=== PATIENT | male | born 1940 | race Caucasian/White ===

== ENCOUNTER 2017-06-07 19:28 | Observation (INO) ==
[2017-06-07] MEDS ORDERED: 0.9 % Sodium Chloride 1,000 ML IVC ONE (20:20)
[2017-06-07] MEDS ORDERED: Aspirin 81 MG TAB.CHEW PO ONE (20:45)
[2017-06-07 20:51] LABS: Basophils % 0.6 %; Eosinophils # 0.1 K/mcL (0.0-0.6); Eosinophils % 1.3 %; Hematocrit 40.4 % (37.5-50.1); Hemoglobin 13.6 g/dL (12.9-16.9); Immature Granulocytes % 0.7 % (0-4); Lymphocytes # 0.5 K/mcL (0.6-4.6); Lymphocytes % 6.7 %; Mean Corpuscular HGB Conc 33.7 g/dL (31.6-35.5); Mean Corpuscular Hemoglobin 31.1 pg (28.0-33.3); Mean Corpuscular Volume 92.2 fL (83.0-100.0); Mean Platelet Volume 10.8 fL (9.4-12.4); Monocytes # 0.4 K/mcL (0.0-1.3); Monocytes % 6.1 %; Neutrophils # 6.1 K/mcL (1.6-8.9); Platelet Count 152 K/mcL (140-400); Red Blood Count 4.38 M/mcL (4.19-5.50); Red Cell Distribution Width 14.5 % (11.5-14.5); Segmented Neutrophils % 84.6 %
[2017-06-07 20:56] LABS: INR 2.6; Prothrombin Time 28.3 Seconds (9.4-12.1)
[2017-06-07 20:59] LABS: Activated Partial Thrombo Time 40.9 Seconds (26.0-36.0); BUN/Creatinine Ratio 14 (6-26); Blood Urea Nitrogen 17 mg/dL (8-26); Calcium 9.6 mg/dL (8.6-10.8); Carbon Dioxide 19 mEq/L (19-29); Chloride 108 mEq/L (98-109); Glucose 151 mg/dL (70-99); Osmolality,Calculated 290 (280-300); Sodium 138 mEq/L (136-145); eGFR For African Americans > 60 (> 60); eGFR For Non-African Americans 57 (> 60)
[2017-06-07 21:11] LABS: Potassium 4.6 mEq/L (3.5-4.5)
[2017-06-07] MEDS ORDERED: Furosemide 20 MG/2 ML VIAL IVP ONE (21:32)
[2017-06-07 21:45] LABS: Bilirubin,Urine Negative (Negative); Blood,Urine Negative (Negative); Clarity,Urine Clear (Clear); Color,Urine Yellow (Yellow); Glucose,Urine (UA) Normal (Normal); Ketones,Urine Negative (Negative); Leukocyte Esterase,Urine Negative (Negative); Nitrite,Urine Negative (Negative); Protein,Urine 100 mg/dL (Neg-Trace); Specific Gravity,Urine 1.018 (1.010-1.025); Urobilinogen,Urine Normal (Normal)
[2017-06-07] MEDS ORDERED: Nitroglycerin 25 MG/250 ML INFUS..BTL IVC SCH ×2 (21:45)
[2017-06-07 21:48] LABS: Bacteria,Urine None Seen per hpf (None-Few); Hyaline Casts,Urine None Seen per lpf (None-Few); RBC,Urine 0-3 per hpf (0-3); Squamous Epithelial Cell,Urine Moderate per lpf (None-Few)
--- NOTE | 2017-06-07 21:49 | Emergency Department Note ---
Disposition Clinical Impression: Congestive heart failure Qualifiers: Congestive heart failure type: unspecified congestive heart failure type Congestive heart failure chronicity: acute on chronic Qualified Code(s): I50.9 - Heart failure, unspecified Disposition: Admitted As Inpatient Condition: Fair Time of Disposition: 22:56 SOB HPI - General Chief Complaint: ED Shortness of Breath/Dyspnea Stated Complaint: JESUS Time Seen by Provider: 06/07/17 19:44 Source: patient, EMS Mode of arrival: EMS Limitations: no limitations Nursing Notes Reviewed: Yes Vital Signs Reviewed: Yes - History of Present Illness Patient presents to the ED with the chief complaint of shortness of breath. Patient has a history of A. fib and COPD. Reports he has felt fine recently except at 4 PM he was sitting in his recliner and had the abrupt onset of dyspnea. He reports that he felt very weak and fatigued all over and his symptoms worsen. Denies any chest discomfort. Does complain of some nausea. No pain or swelling in his legs. States that he is on a anticoagulant for his A. fib. No headache or changes in vision. Also has a history of CHF - Related Data Home Medications Medication Instructions Recorded Confirmed Amlodipine [Norvasc] 10 mg PO DAILY 03/26/15 06/07/17 Aspirin Enteric Coated [Aspirin EC] 81 mg PO DAILY 03/26/15 06/07/17 Cholecalciferol (Vitamin D3) 1,000 unit PO DAILY 03/26/15 06/07/17 [Vitamin D3] Furosemide [Lasix] 40 mg PO DAILY PRN 03/26/15 06/07/17 Gemfibrozil [Lopid] 600 mg PO BIDWM 03/26/15 06/07/17 Glimepiride 1 mg PO DAILY 03/26/15 06/07/17 Isosorbide MONOnitrate [Isosorbide 60 mg PO DAILY 03/26/15 06/07/17 Mononitrate ER] Metoprolol Tartrate [Lopressor] 150 mg PO BID 03/26/15 06/07/17 Potassium Chloride 10 meq PO DAILY 03/26/15 06/07/17 Pravastatin Sodium [Pravachol] 20 mg PO QPM 03/26/15 06/07/17 Warfarin [Coumadin] 3 mg PO SUTUTHSA 03/26/15 06/07/17 Albuterol Sulfate [Proair 2 puff IH Q4HR PRN 12/24/16 06/07/17 Respiclick] Budesonide/Formoterol 160/4.5 2 puff IH BIDR PRN 12/24/16 06/07/17 [Symbicort 160/4.5] Lisinopril [Zestril] 10 mg PO QPM 12/24/16 06/07/17 Montelukast Sodium [Singulair] 10 mg PO DAILY 12/24/16 06/07/17 Spironolactone [Aldactone] 25 mg PO DAILY 12/24/16 06/07/17 DiphenhydraMINE [Benadryl] 25 mg PO Q8HR PRN 06/07/17 06/07/17 Lisinopril [Zestril] 20 mg PO QAM 06/07/17 06/07/17 Warfarin [Coumadin] 2.5 mg PO WEFR 06/07/17 06/07/17 Warfarin [Coumadin] 5 mg PO MO 06/07/17 06/07/17 Previous Rx's Medication Instructions Recorded Pantoprazole Sodium 40 mg PO DAILY #30 03/18/17 LORazepam [Ativan] 0.5 mg PO ONCE #4 tablet 04/22/17 Allergies Allergy/AdvReac Type Severity Reaction Status Date / Time clonidine AdvReac Dry Mucus Verified 01/07/17 18:29 Membranes Iodinated Contrast- Oral and AdvReac Flushing Verified 01/07/17 18:29 IV Dye All systems ED: reviewed and negative except as stated. Constitutional: Denies: fever Cardiovascular: Reports: dyspnea on exertion. Denies: chest pain Respiratory: Reports: dyspnea. Denies: cough Gastrointestinal: Reports: nausea Past Medical History - Past Medical History Attestation: Yes The following information was validated with the patient. Source: patient Medical history: Reports: atrial fibrillation, CHF, COPD, diabetes, hyperlipidemia, hypertension, renal disease Psychiatric history: Reports: no psych history - Social History Smoking Status: Former smoker Smokeless Tobacco Status: No Alcohol use: Reports: rarely Drug use: Reports: none Physical Exam - General Limitations: no limitations General appearance: alert, in no apparent distress - Head Head exam: atraumatic, normocephalic, normal inspection - Neck Neck exam: Present: normal inspection, full ROM, trachea midline - Chest Chest inspection: Present: normal inspection, symmetric chest wall rise - Respiratory Respiratory exam: Present: respiratory distress (mild tachypnea, trace rales bilateral bases ). Absent: normal lung sounds bilaterally - Cardiovascular Cardiovascular exam: Present: tachycardia, irregular rhythm, normal heart sounds. Absent: regular rate, normal rhythm - Abdominal Exam Abdominal exam: Present: soft, Non-Tender. Absent: tenderness, distention, guarding, rebound, rigidity - Extremities Exam Extremities exam: Present: full ROM, pedal edema. Absent: normal inspection, tenderness - Neurological Exam Neurological exam: Present: alert, oriented X3 - Psychiatric Psychiatric exam: Present: normal affect, normal mood - Skin Skin exam: Present: warm, dry, intact, normal color Course Course Narrative: Patient presenting with likely CHF exacerbation. We will workup and admit. Vital Signs Temperature 98.9 F 06/07/17 19:30 Pulse Rate 108 06/07/17 19:30 Respiratory Rate 20 06/07/17 19:30 Blood Pressure 214/106 06/07/17 19:30 O2 Sat by Pulse Oximetry 99 06/07/17 19:30 Temperature 98.5 F 06/07/17 23:35 Pulse Rate 104 06/07/17 23:35 Respiratory Rate 19 06/07/17 23:35 Blood Pressure 164/81 06/07/17 23:35 O2 Sat by Pulse Oximetry 94 06/07/17 23:35 Oxygen Delivery Oxygen Delivery Bipap Shortness of Breath/Dyspnea - Medical Records Medical records reviewed: Yes I reviewed the patient's medical records. - Lab Data Lab results reviewed: Yes I reviewed the patient's lab results. Result diagrams: 06/07/17 20:05 06/07/17 20:05 Lab Results 06/07/17 06/07/17 06/07/17 Range/Units 20:05 20:05 20:05 WBC 7.2 (4.3-11.1) K/mcL RBC 4.38 (4.19-5.50) M/mcL Hgb 13.6 (12.9-16.9) g/dL Hct 40.4 (37.5-50.1) % MCV 92.2 (83.0-100.0) fL MCH 31.1 (28.0-33.3) pg MCHC 33.7 (31.6-35.5) g/dL RDW 14.5 (11.5-14.5) % Plt Count 152 (140-400) K/mcL MPV 10.8 (9.4-12.4) fL Immature Gran % 0.7 (0-4) % Seg Neutrophils % 84.6 % Lymphocytes % 6.7 % Monocytes % 6.1 % Eosinophils % 1.3 % Basophils % 0.6 % Neutrophils # 6.1 (1.6-8.9) K/mcL Lymphocytes # 0.5 L (0.6-4.6) K/mcL Monocytes # 0.4 (0.0-1.3) K/mcL Eosinophils # 0.1 (0.0-0.6) K/mcL Basophils # 0.0 (0.0-0.2) K/mcL PT 28.3 H (9.4-12.1) Seconds INR 2.6 APTT 40.9 H (26.0-36.0) Seconds Sodium 138 (136-145) mEq/L Potassium 4.6 H (3.5-4.5) mEq/L Chloride 108 (98-109) mEq/L Carbon Dioxide 19 (19-29) mEq/L BUN 17 (8-26) mg/dL Creatinine 1.23 (0.72-1.25) mg/dL Est GFR ( Amer) > 60 (> 60) Est GFR (Non-Af Amer) 57 L (> 60) BUN/Creatinine Ratio 14 (6-26) Glucose 151 H (70-99) mg/dL Calculated Osmolality 290 (280-300) Calcium 9.6 (8.6-10.8) mg/dL Troponin I (0-0.03) ng/mL B-Natriuretic Peptide (0-100) pg/mL Urine Color (Yellow) Urine Clarity (Clear) Urine pH (5.0-8.0) pH Units Ur Specific [place] (1.010-1.025) Urine Protein (Neg-Trace) mg/dL Urine Glucose (UA) (Normal) mg/dL Urine Ketones (Negative) mg/dL Urine Blood (Negative) Urine Nitrite (Negative) Urine Bilirubin (Negative) Urine Urobilinogen (Normal) mg/dL Ur Leukocyte Esterase (Negative) Urine Microscopic RBC (0-3) per hpf Urine Microscopic WBC (0-3) per hpf Ur Squamous Epith Cells (None-Few) per lpf Urine Bacteria (None-Few) per hpf Hyaline Casts (None-Few) per lpf Ur Culture Indicated? (NO) Specimen Rejected 06/07/17 06/07/17 06/07/17 Range/Units 20:05 20:05 21:35 WBC (4.3-11.1) K/mcL RBC (4.19-5.50) M/mcL Hgb (12.9-16.9) g/dL Hct (37.5-50.1) % MCV (83.0-100.0) fL MCH (28.0-33.3) pg MCHC (31.6-35.5) g/dL RDW (11.5-14.5) % Plt Count (140-400) K/mcL MPV (9.4-12.4) fL Immature Gran % (0-4) % Seg Neutrophils % % Lymphocytes % % Monocytes % % Eosinophils % % Basophils % % Neutrophils # (1.6-8.9) K/mcL Lymphocytes # (0.6-4.6) K/mcL Monocytes # (0.0-1.3) K/mcL Eosinophils # (0.0-0.6) K/mcL Basophils # (0.0-0.2) K/mcL PT (9.4-12.1) Seconds INR APTT (26.0-36.0) Seconds Sodium (136-145) mEq/L Potassium (3.5-4.5) mEq/L Chloride (98-109) mEq/L Carbon Dioxide (19-29) mEq/L BUN (8-26) mg/dL Creatinine (0.72-1.25) mg/dL Est GFR ( Amer) (> 60) Est GFR (Non-Af Amer) (> 60) BUN/Creatinine Ratio (6-26) Glucose (70-99) mg/dL Calculated Osmolality (280-300) Calcium (8.6-10.8) mg/dL Troponin I 0.01 (0-0.03) ng/mL B-Natriuretic Peptide 487 H (0-100) pg/mL Urine Color Yellow (Yellow) Urine Clarity Clear (Clear) Urine pH 6.0 (5.0-8.0) pH Units Ur Specific [place] 1.018 (1.010-1.025) Urine Protein 100 H (Neg-Trace) mg/dL Urine Glucose (UA) Normal (Normal) mg/dL Urine Ketones Negative (Negative) mg/dL Urine Blood Negative (Negative) Urine Nitrite Negative (Negative) Urine Bilirubin Negative (Negative) Urine Urobilinogen Normal (Normal) mg/dL Ur Leukocyte Esterase Negative (Negative) Urine Microscopic RBC 0-3 (0-3) per hpf Urine Microscopic WBC 3-5 H (0-3) per hpf Ur Squamous Epith Cells Moderate H (None-Few) per lpf Urine Bacteria None Seen (None-Few) per hpf Hyaline Casts None Seen (None-Few) per lpf Ur Culture Indicated? NO (NO) Specimen Rejected 06/07/17 Range/Units 22:13 WBC (4.3-11.1) K/mcL RBC (4.19-5.50) M/mcL Hgb (12.9-16.9) g/dL Hct (37.5-50.1) % MCV (83.0-100.0) fL MCH (28.0-33.3) pg MCHC (31.6-35.5) g/dL RDW (11.5-14.5) % Plt Count (140-400) K/mcL MPV (9.4-12.4) fL Immature Gran % (0-4) % Seg Neutrophils % % Lymphocytes % % Monocytes % % Eosinophils % % Basophils % % Neutrophils # (1.6-8.9) K/mcL Lymphocytes # (0.6-4.6) K/mcL Monocytes # (0.0-1.3) K/mcL Eosinophils # (0.0-0.6) K/mcL Basophils # (0.0-0.2) K/mcL PT (9.4-12.1) Seconds INR APTT (26.0-36.0) Seconds Sodium (136-145) mEq/L Potassium (3.5-4.5) mEq/L Chloride (98-109) mEq/L Carbon Dioxide (19-29) mEq/L BUN (8-26) mg/dL Creatinine (0.72-1.25) mg/dL Est GFR ( Amer) (> 60) Est GFR (Non-Af Amer) (> 60) BUN/Creatinine Ratio (6-26) Glucose (70-99) mg/dL Calculated Osmolality (280-300) Calcium (8.6-10.8) mg/dL Troponin I (0-0.03) ng/mL B-Natriuretic Peptide (0-100) pg/mL Urine Color (Yellow) Urine Clarity (Clear) Urine pH (5.0-8.0) pH Units Ur Specific [place] (1.010-1.025) Urine Protein (Neg-Trace) mg/dL Urine Glucose (UA) (Normal) mg/dL Urine Ketones (Negative) mg/dL Urine Blood (Negative) Urine Nitrite (Negative) Urine Bilirubin (Negative) Urine Urobilinogen (Normal) mg/dL Ur Leukocyte Esterase (Negative) Urine Microscopic RBC (0-3) per hpf Urine Microscopic WBC (0-3) per hpf Ur Squamous Epith Cells (None-Few) per lpf Urine Bacteria (None-Few) per hpf Hyaline Casts (None-Few) per lpf Ur Culture Indicated? (NO) Specimen Rejected Hemolyzed - Radiology Data Radiology results reviewed: Yes I reviewed the patient's radiology results. Chest X-Ray 06/07/17 20:20 IMPRESSION: Cardiomegaly with hydrostatic pulmonary edema and small bilateral pleural effusions in keeping with acute congestive heart failure. D/ / Murtaza Monte MD / Murtaza Monte MD Interpreting Provider: Murtaza Monte MD - EKG Data EKG attestation: Yes I reviewed and interpreted this EKG. EKG results narrative: A. fib with RVR, rate 120, QRS 93, QTc 382, rate dependent ST segment depression , no acute ischemic changes S.B.A.R. - S.B.A.R. Situation: Demographics, MOA Background: Presenting Complaint, Relevant PMH, Meds, & Allergies Assessment: Vital Signs, Course and respsone to treatment, Exam Concerns, Patient/Family Expectation, Pertinant Lab Results, Outstanding Labs Recommendation: Barrier(s) to disposition, Recommendation based on pending studies, treatments, or consults S.B.A.R. Report Given to: Dr. Case Jackson.AMichele Repor Time: 22:56 Attestation Statement - Attestation Attestation: I examined this patient and my medical decision-making was reviewed with the Resident Physician, Dr. Smith. I agree with the documented findings, disposition and treatment plan as described except to the extent set forth below. Patient is a 76-year-old white male with a history of CHF, COPD, and atrial fibrillation who presents to the emergency department with acute onset of shortness of breath that began at approximately 4 PM today. Patient states the shortness of breath has continued to worsen and when his arrived home from work she felt that he was was having increased work of breathing and felt he should be evaluated. Patient denies any chest pain pressure or heaviness with shortness of breath, or diaphoresis, no abdominal pain or back pain, no nausea or vomiting. Patient denies any preceding URI symptoms or cough. No lower extent edema or pain. I agree with the patient's physical exam findings as documented. Patient was tachycardic on arrival. Patient's EKG shows atrial fib with RVR. Patient has a history of chronic A. fib. No acute ischemic findings. We obtained lab evaluation as well as chest x-ray and patient was placed initially on supple L oxygen. Patient's chest x-ray shows acute pulmonary edema with small bilateral pleural effusions. Findings consistent with an exacerbation of CHF so patient was placed on BiPAP and given aspirin, nitroglycerin, and Lasix. Patient does have a mild elevation in his BNP. Remainder of labs are unremarkable. Troponin is negative. We will admit the patient for an acute exacerbation of CHF, results were discussed with patient and who agree with this plan. Patient was accepted by the hospitalist service.
--- NOTE | 2017-06-08 00:58 | Internal Med History&Physical ---
Date of Encounter: 06/08/17 Time of Encounter: 00:56 Assessment and Plan (1) Heart failure, diastolic, with acute decompensation Current visit: Yes Status: Acute As seen on CXR and physical exam, patient is fluid overloaded Was started on Nitro drip in ED and his pressures are stable He only takes Lasix 40 mg PRN as home, so we will diurese with Lasix IV 40 mg BID Echocardiogram done in November of this year showed EF 55% with indeterminant diastolic function Fluid restriction at 1.5 L daily and keeping track of I/O's Holding home Spironolactone in setting of borderline hyperkalemia (2) Afib Current visit: Yes Status: Chronic Currently rate controlled with home Metoprolol, which we will continue He is therapeutic on his INR so will resume home Coumadin dose Qualifiers: Atrial fibrillation type: chronic Qualified Code(s): I48.2 - Chronic atrial fibrillation (3) Non-insulin dependent type 2 diabetes mellitus Current visit: Yes Status: Chronic Holding home anti-diabetics and start on low dose SSI ACHS accuchecks A1c was last checked in December was 6.8%, will recheck in AM (4) CKD (chronic kidney disease) stage 3, GFR 30-59 ml/min Current visit: Yes Status: Chronic Cr is at baseline and he states he is making adequate urine Will monitor Cr daily and keep close eye on electrolytes (5) HCC (hepatocellular carcinoma) Current visit: No Status: Chronic Underwent radioembolization in February and not currently on any chemo/radiation Has follow up appointment with oncologist in July (6) DANNIELLE (obstructive sleep apnea) Current visit: Yes Status: Chronic Patient states he is compliant with home BiPAP machine, will continue (7) DVT prophylaxis Current visit: Yes Status: Acute On home Coumadin Internal Medicine - H&P: HPI Chief complaint: shortness of breath Admitted From: Home Plans for Post Hospital Care: Home History of present illness: Mr. Lora is a 76 year old male who presents with shortness of breath started earlier in the afternoon at 4 PM while he was in the recliner. He states it came on all of a sudden when he tried sitting up from the reclined position. He does have a history of COPD, CHF and DANNIELLE and is on BiPAP at night but does not use oxygen. Also has AFib and is on Coumadin. Normally he can walk a few flight of stairs before feeling short of breath. He does take Lasix as needed but swelling, which averages to about twice a week per . He denies any changes in diet or medications. After being given medications including Lasix, Nitro and breathing treatments in the ED, he states his breathing is much better while at rest. He denies any chest pain, nausea, vomiting, diarrhea, fever, chills, syncope. He does have history of hepatocellular carcinoma and underwent radioembolization in February, but has not been on chemo/radiation otherwise. Past Med Surg Social Fam HX - Past Medical History Medical history: atrial fibrillation, CHF, COPD, diabetes, hyperlipidemia, hypertension, renal disease Psychiatric history: no psych history - Social History Smoking Status: Former smoker Smokeless Tobacco Status: No Alcohol use: rarely Drug use: none Internal Medicine - H&P: Meds Amlodipine [Norvasc] 10 mg PO DAILY 03/26/15 [History] Aspirin Enteric Coated [Aspirin EC] 81 mg PO DAILY 03/26/15 [History] Cholecalciferol (Vitamin D3) [Vitamin D3] 1,000 unit PO DAILY 03/26/15 [History] Furosemide [Lasix] 40 mg PO DAILY PRN 03/26/15 [History] Gemfibrozil [Lopid] 600 mg PO BIDWM 03/26/15 [History] Glimepiride 1 mg PO DAILY 03/26/15 [History] Isosorbide MONOnitrate [Isosorbide Mononitrate ER] 60 mg PO DAILY 03/26/15 [ History] Metoprolol Tartrate [Lopressor] 150 mg PO BID 03/26/15 [History] Potassium Chloride 10 meq PO DAILY 03/26/15 [History] Pravastatin Sodium [Pravachol] 20 mg PO QPM 03/26/15 [History] Warfarin [Coumadin] 3 mg PO SUTUTHSA 03/26/15 [History] Albuterol Sulfate [Proair Respiclick] 2 puff IH Q4HR PRN 12/24/16 [History] Budesonide/Formoterol 160/4.5 [Symbicort 160/4.5] 2 puff IH BIDR PRN 12/24/16 [ History] Lisinopril [Zestril] 10 mg PO QPM 12/24/16 [History] Montelukast Sodium [Singulair] 10 mg PO DAILY 12/24/16 [History] Spironolactone [Aldactone] 25 mg PO DAILY 12/24/16 [History] Pantoprazole Sodium 40 mg PO DAILY #30 03/18/17 [Rx] LORazepam [Ativan] 0.5 mg PO ONCE #4 tablet 04/22/17 [Rx] DiphenhydraMINE [Benadryl] 25 mg PO Q8HR PRN 06/07/17 [History] Lisinopril [Zestril] 20 mg PO QAM 06/07/17 [History] Warfarin [Coumadin] 2.5 mg PO WEFR 06/07/17 [History] Warfarin [Coumadin] 5 mg PO MO 06/07/17 [History] 3 Allergy/AdvReac Type Severity Reaction Status Date / Time clonidine AdvReac Dry Mucus Verified 01/07/17 18:29 Membranes Iodinated Contrast- Oral and AdvReac Flushing Verified 01/07/17 18:29 IV Dye All Systems PM: A 10-system review of systems was performed and is negative for pertinent findings except as documented above in the HPI. - Constitutional Constitutional: no chills, no fever(s), no night sweats - EENT Eyes: no change in vision, no discharge, no pain, no photophobia Ears: no ear discharge, no ear pain, no tinnitus Nose, mouth and throat: no dysphagia, no nasal discharge, no neck pain, no sore throat - Cardiovascular Cardiovascular ROS IM: dyspnea, dyspnea on exertion, edema, irregular heart rhythm, no chest pain, no diaphoresis, no lightheadedness, no orthopnea, no palpitations, no syncope - Respiratory Respiratory: no cough, no dyspnea, no wheezing, no excessive phlegm production - Gastrointestinal Gastrointestinal: no abdominal pain, no diarrhea, no hematemesis, no hematochezia, no melena, no nausea, no vomiting - Genitourinary Genitourinary ROS male: urinary frequency (urinates frequently when taking lasix ) - Musculoskeletal Musculoskeletal ROS IM: no numbness, no tingling - Integumentary Integumentary IM: no rash, no unusual bruising - Neurological Neurological ROS: no confusion, no convulsions, no focal weakness, no numbness, no tingling, no tremor(s) - Hematologic/Lymphatic Hematologic/Lymphatic: no easy bruising - Constitutional Vitals: Temp Pulse Resp BP Pulse Ox 98.5 F 104 19 164/81 94 06/07/17 23:35 06/07/17 23:35 06/07/17 23:35 06/07/17 23:35 06/07/17 23:35 General appearance: Present: cooperative, morbidly obese, pleasant, no acute distress, answers questions appropriately - Head Head exam: Present: atraumatic, normocephalic - Eye Eye exam: Present: PERRL, conjuntiva pink, sclera anicteric - Neck Neck exam general surgery: Present: supple, trachea midline. Absent: lymphadenopathy - Respiratory Respiratory exam: Present: rales. Absent: accessory muscle use, rhonchi, wheezes - Cardiovascular Cardiovascular exam: Present: RRR, +S1, +S2. Absent: diastolic murmur, gallop, rubs, systolic murmur - GI/Abdominal GI/Abdominal exam: Present: normal bowel sounds, soft, no peritoneal signs. Absent: distended, tenderness - Extremities Exam Extremities exam: Present: pedal edema (non-pitting), warm, radial pulses palpable and symmetrical. Absent: calf tenderness, cyanotic - Neurological Exam Neurological exam: Present: alert, no focal deficits. Absent: facial droop, speech deficit - Skin Skin exam: Present: dry, intact Internal Med - H&P Results - Labs CBC & Chem 7: 06/07/17 20:05 06/07/17 20:05
[2017-06-08] MEDS ORDERED: Dextrose Gel 15 GM PO PRN ×2 (01:01)
[2017-06-08] MEDS ORDERED: *HR* Dextrose 50 % in Water (Syg) 50 ML SYRINGE IVP PRN (01:01)
[2017-06-08] MEDS ORDERED: D5% in Water 1,000 ML IVC PRN (01:01)
[2017-06-08] MEDS ORDERED: Acetaminophen 325 MG TABLET PO PRN (01:01)
[2017-06-08] MEDS ORDERED: Naloxone 0.4 MG/ML INJ IVP PRN (01:01)
[2017-06-08] MEDS ORDERED: Ondansetron ODT 4 MG TAB.RAPDIS SL PRN (01:01)
[2017-06-08] MEDS ORDERED: Budesonide/Formoterol 160/4.5 MDI IH PRN (01:04)
--- NOTE | 2017-06-08 03:44 | Event Note ---
Date of Encounter: 06/08/17 Time of Encounter: 03:42 Patient serum examined with medical device sales representative. Agree with assessment and plan. Acute Congestive heart failure exacerbations due to diastolic dysfunction. He takes only PRN Lasix at home. We will start the patient on LASIX 40 IVB IV. Strict intake and output and daily weight. He has no history of coronary artery disease. Mentioned that he had 2 prior angiograms showed no Occlusive disease. Patient is full code
[2017-06-08 03:50] LABS: Basophils % 0.3 %; Eosinophils % 0.6 %; Hematocrit 32.6 % (37.5-50.1); Immature Granulocytes % 0.3 % (0-4); Lymphocytes # 0.5 K/mcL (0.6-4.6); Lymphocytes % 8.5 %; Mean Corpuscular HGB Conc 33.7 g/dL (31.6-35.5); Mean Corpuscular Hemoglobin 31.5 pg (28.0-33.3); Mean Corpuscular Volume 93.4 fL (83.0-100.0); Mean Platelet Volume 10.3 fL (9.4-12.4); Monocytes # 0.5 K/mcL (0.0-1.3); Neutrophils # 5.2 K/mcL (1.6-8.9); Platelet Count 124 K/mcL (140-400); Red Blood Count 3.49 M/mcL (4.19-5.50); Red Cell Distribution Width 14.6 % (11.5-14.5); Segmented Neutrophils % 82.3 %
[2017-06-08 04:03] LABS: BUN/Creatinine Ratio 15 (6-26); Blood Urea Nitrogen 17 mg/dL (8-26); Calcium 8.9 mg/dL (8.6-10.8); Carbon Dioxide 21 mEq/L (19-29); Chloride 109 mEq/L (98-109); Glucose 125 mg/dL (70-99); Osmolality,Calculated 291 (280-300); Sodium 139 mEq/L (136-145); eGFR For African Americans > 60 (> 60); eGFR For Non-African Americans > 60 (> 60)
[2017-06-08 04:16] LABS: Hemoglobin A1C 5.3 %
[2017-06-08] MEDS ORDERED: *HR* Heparin 5,000 UNIT/ML VIAL SQ SCH (06:00)
[2017-06-08] MEDS: Insulin LISPRO 300 UNITS/3 ML VIAL SQ SCH ×4 (08:16→20:30)
[2017-06-08] MEDS: Furosemide 40 MG/4 ML VIAL IVP SCH ×2 (08:17→20:29)
[2017-06-08] MEDS: Aspirin Enteric Coated 81 MG Tablet PO SCH (08:19)
[2017-06-08] MEDS: Metoprolol 100 MG TABLET PO SCH ×2 (08:19→20:29)
[2017-06-08] MEDS: amLODIPine 5 MG TABLET PO SCH (08:19)
[2017-06-08] MEDS ORDERED: Lisinopril 20 MG TABLET PO SCH (09:00)
[2017-06-08] MEDS ORDERED: Spironolactone 25 MG TABLET PO SCH (09:00)
[2017-06-08] MEDS ORDERED: Warfarin perPT PO PRN (18:00)
[2017-06-08] MEDS ORDERED: *HR* Warfarin 2.5 MG TABLET PO SCH (18:00)
--- NOTE | 2017-06-08 19:01 | Event Note ---
Date of Encounter: 06/08/17 Time of Encounter: 15:30 Pt admitted earlier this AM for acute exac of chronic diastolic heart failure. He has been diuresing today. Agree with current plan. Anticipate d/c in next 24 hours or so.
[2017-06-08] MEDS: Budesonide/Formoterol 160/4.5 MDI IH SCH (20:05)
[2017-06-09 04:00] LABS: Basophils % 0.6 %; Eosinophils # 0.1 K/mcL (0.0-0.6); Eosinophils % 1.4 %; Hematocrit 34.5 % (37.5-50.1); Hemoglobin 11.5 g/dL (12.9-16.9); Immature Granulocytes % 0.3 % (0-4); Lymphocytes # 0.6 K/mcL (0.6-4.6); Mean Corpuscular HGB Conc 33.3 g/dL (31.6-35.5); Mean Corpuscular Hemoglobin 30.7 pg (28.0-33.3); Mean Platelet Volume 10.3 fL (9.4-12.4); Monocytes # 0.7 K/mcL (0.0-1.3); Monocytes % 10.4 %; Neutrophils # 5.6 K/mcL (1.6-8.9); Platelet Count 136 K/mcL (140-400); Red Blood Count 3.75 M/mcL (4.19-5.50); Red Cell Distribution Width 14.5 % (11.5-14.5); Segmented Neutrophils % 78.3 %
[2017-06-09 04:05] LABS: INR 2.1; Prothrombin Time 22.9 Seconds (9.4-12.1)
[2017-06-09 04:12] LABS: BUN/Creatinine Ratio 16 (6-26); Blood Urea Nitrogen 21 mg/dL (8-26); Calcium 9.3 mg/dL (8.6-10.8); Carbon Dioxide 25 mEq/L (19-29); Chloride 102 mEq/L (98-109); Glucose 133 mg/dL (70-99); Osmolality,Calculated 289 (280-300); Potassium 3.7 mEq/L (3.5-4.5); Sodium 137 mEq/L (136-145); eGFR For African Americans > 60 (> 60); eGFR For Non-African Americans 53 (> 60)
[2017-06-09] MEDS: amLODIPine 5 MG TABLET PO SCH (08:15)
[2017-06-09] MEDS: Metoprolol 100 MG TABLET PO SCH ×2 (08:16→20:06)
[2017-06-09] MEDS: Furosemide 40 MG/4 ML VIAL IVP SCH ×2 (08:16→16:33)
[2017-06-09] MEDS: Aspirin Enteric Coated 81 MG Tablet PO SCH (08:16)
[2017-06-09] MEDS: Insulin LISPRO 300 UNITS/3 ML VIAL SQ SCH ×4 (08:20→22:08)
[2017-06-09] MEDS: Budesonide/Formoterol 160/4.5 MDI IH SCH ×2 (09:13→19:29)
[2017-06-09] MEDS: Azithromycin 500 MG in D5% in Water 250 ML IVPB SCH (16:50)
[2017-06-09] MEDS ORDERED: *HR* Warfarin 3 MG TABLET PO SCH (18:00)
--- NOTE | 2017-06-09 18:26 | Event Note ---
Date of Encounter: 06/09/17 Time of Encounter: 10:30 I examined this patient and my medical decision-making was reviewed with the Resident Physician on 06/09/17. I agree with the documented findings, disposition and treatment plan as described except to the extent set forth below. Mr Lora is currently admitted for resp failure due to CHF. He remains moderate to high risk due to potential for worsening respiratory status. Mr. Lora is still quite dyspneic. He has diuresed. No CP. Has had low grade fevers as well. No GI issues. Exam Alert. Comfortable Mucus membranes moist Heart irreg Lungs with bilateral rales Abd soft Edema present I/P 1. Hypoxic resp failure - 2. Low grade temp - CXR with pneumonia. Abx added 3. CHF Further diagnoses and plan as per progress note of today.
--- NOTE | 2017-06-09 21:39 | Internal Med Progress Note ---
<Alize Logan - Last Filed: 06/09/17 21:37> Date of Encounter: 06/09/17 Time of Encounter: 08:15 - Assessment and plan (1) Heart failure, diastolic, with acute decompensation Current Visit: Yes Status: Acute Assessment and plan: - SOB improving. - Currently tolerating 4L O2 via NC. No conversational dyspnea. - -5.5 L since admission, continue strict I/Os. - Continue diuresis with lasix 40 IV BID as BP tolerates. - Monitor creatinine and electrolytes. (2) Afib Current Visit: Yes Status: Chronic Assessment and plan: - Rate controlled in 70s. - INR 2.1 - Continue metoprolol and coumadin Qualifiers: Atrial fibrillation type: chronic Qualified Code(s): I48.2 - Chronic atrial fibrillation (3) Pneumonia Current Visit: Yes Status: Acute Assessment and plan: - CXR this afternoon showed possible left basilar consolidation suspicious of PNA - No WBC elevation or fevers today. - Start ceftriaxone and azithromycin, day 1. Qualifiers: Pneumonia type: due to unspecified organism Laterality: left Lung location: lower lobe of lung Qualified Code(s): J18.1 - Lobar pneumonia, unspecified organism (4) Non-insulin dependent type 2 diabetes mellitus Current Visit: Yes Status: Chronic Assessment and plan: - A1c of 5.3% - SSI (5) DANNIELLE (obstructive sleep apnea) Current Visit: Yes Status: Chronic Assessment and plan: - Uses BIPAP at home. Will continue - SW following for home needs. (6) CKD (chronic kidney disease) stage 3, GFR 30-59 ml/min Current Visit: Yes Status: Chronic Assessment and plan: - BUN/CR of 21/1.32 - Appears to be at baseline kidney function however creatinine increasing. - Will continue to monitor for increase in creatinine with lasix use - Avoid nephrotoxic drugs. (7) HCC (hepatocellular carcinoma) Current Visit: No Status: Chronic Assessment and plan: - To follow up with oncology in july. (8) DVT prophylaxis Current Visit: Yes Status: Acute Assessment and plan: Anticoagulated with coumadin. - Subjective Interval history: Patient was seen and examined at bedside this AM. He reports some improvement in his breathing. Denies any chest pain, wheezes, nausea, vomiting. - Constitutional Vitals: Temp Pulse Resp BP Pulse Ox 98.6 F 71 16 113/56 97 06/09/17 20:42 06/09/17 20:42 06/09/17 20:42 06/09/17 20:42 06/09/17 20:42 General appearance: Present: cooperative, morbidly obese, pleasant, no acute distress, answers questions appropriately Exam: Gen: Vitals noted. No acute distress. AAOx3 HEENT: oropharynx clear, normocephalic, atraumatic, dry mucus membranes Neck: Supple. Normal ROM. Cardiac: RRR, no murmur, +S1/S2 Pulmonary: Decreased air movement and rales in LLL, equal chest rise Abdomen: soft, nondistended, BS noted, no guarding Extremities: no LE edema, no cyanosis or clubbing, pedal pulses symmetric Neuro: AAOx3, moves all extremities, no focal deficits, no speech deficits Psych: Appropriately answers questions, cooperative, appropriate behavior Internal Medicine: Result - Labs CBC & Chem 7: 06/09/17 03:37 06/09/17 03:37 Labs: Short CBC 06/09/17 Range/Units 03:37 WBC 7.1 (4.3-11.1) K/mcL Hgb 11.5 L (12.9-16.9) g/dL Hct 34.5 L (37.5-50.1) % Plt Count 136 L (140-400) K/mcL Neutrophils # 5.6 (1.6-8.9) K/mcL BMP 06/09/17 03:37 Sodium 137 Potassium 3.7 Chloride 102 Carbon Dioxide 25 BUN 21 Creatinine 1.32 H Glucose 133 H Calcium 9.3 - ABG Interpretation ABG results: PT/INR, D-dimer PT 22.9 Seconds (9.4-12.1) H 06/09/17 03:37 - Impressions Impressions Chest X-Ray 06/09/17 10:36 IMPRESSION: Findings suspicious for a left basilar pneumonia and reactive pleural effusion. Questionable trace right pleural effusion seen on the lateral view. Atherosclerotic disease. D/ / Juan Daniel Irene MD / Juan Daniel Irene MD Interpreting Provider: Juan Daniel Irene MD Consult Discharge Plan - Plan Referrals: Amauri-Colden,Dulce Maria M, MD [Primary Care Provider] - 06/20/17 10:30 am <Jose Mohan Saw - Last Filed: 06/10/17 07:42> Date of Encounter: 06/09/17 - Constitutional Vitals: Temp Pulse Resp BP Pulse Ox 98.3 F 75 17 158/61 95 06/10/17 06:54 06/10/17 06:54 06/10/17 06:54 06/10/17 06:54 06/10/17 06:54 Internal Medicine: Result - Labs CBC & Chem 7: 06/10/17 04:09 06/10/17 04:09 Labs: Short CBC 06/10/17 Range/Units 04:09 WBC 5.8 (4.3-11.1) K/mcL Hgb 11.4 L (12.9-16.9) g/dL Hct 33.4 L (37.5-50.1) % Plt Count 143 (140-400) K/mcL BMP 06/10/17 04:09 Sodium 138 Potassium 3.5 Chloride 102 Carbon Dioxide 27 BUN 31 H D Creatinine 1.43 H Glucose 111 H Calcium 9.2 - ABG Interpretation ABG results: PT/INR, D-dimer PT 20.1 Seconds (9.4-12.1) H 06/10/17 04:09 - Impressions Impressions Chest X-Ray 06/09/17 10:36 IMPRESSION: Findings suspicious for a left basilar pneumonia and reactive pleural effusion. Questionable trace right pleural effusion seen on the lateral view. Atherosclerotic disease. D/ / Juan Daniel Irene MD / Juan Daniel Irene MD Interpreting Provider: Juan Daniel Irene MD - Attending Attestation Please see event note of this date.
[2017-06-10 04:27] LABS: Hematocrit 33.4 % (37.5-50.1); Hemoglobin 11.4 g/dL (12.9-16.9); INR 1.8; Mean Corpuscular HGB Conc 34.1 g/dL (31.6-35.5); Mean Corpuscular Hemoglobin 31.2 pg (28.0-33.3); Mean Corpuscular Volume 91.5 fL (83.0-100.0); Mean Platelet Volume 10.3 fL (9.4-12.4); Platelet Count 143 K/mcL (140-400); Prothrombin Time 20.1 Seconds (9.4-12.1); Red Blood Count 3.65 M/mcL (4.19-5.50); Red Cell Distribution Width 14.2 % (11.5-14.5)
[2017-06-10 04:34] LABS: Calcium 9.2 mg/dL (8.6-10.8); Potassium 3.5 mEq/L (3.5-4.5)
[2017-06-10 07:53] LABS: Adenovirus Not Detected (Not Detect); Bordetella Pertussis Not Detected (Not Detect); Chlamydophila pneumoniae Not Detected (Not Detect); Coronavirus 229E Not Detected (Not Detect); Coronavirus HKU1 Not Detected (Not Detect); Coronavirus NL63 Not Detected (Not Detect); Coronavirus OC43 Not Detected (Not Detect); Human Metapneumovirus Not Detected (Not Detect); Human Rhinovirus/Enterovirus Not Detected (Not Detect); Influenza A Subtype 2009 H1 Not Detected (Not Detect); Influenza A Untypeable Not Detected (Not Detect); Influenza B Not Detected (Not Detect); Mycoplasma pneumoniae Not Detected (Not Detect); Parainfluenza Virus 1 Not Detected (Not Detect); Parainfluenza Virus 2 Not Detected (Not Detect); Parainfluenza Virus 3 Not Detected (Not Detect); Parainfluenza Virus 4 Not Detected (Not Detect); Respiratory Syncytial Virus Not Detected (Not Detect)
[2017-06-10] MEDS: Budesonide/Formoterol 160/4.5 MDI IH SCH ×2 (08:05→21:18)
[2017-06-10] MEDS: Insulin LISPRO 300 UNITS/3 ML VIAL SQ SCH ×4 (09:32→20:40)
[2017-06-10] MEDS: Aspirin Enteric Coated 81 MG Tablet PO SCH (09:33)
[2017-06-10] MEDS: Metoprolol 100 MG TABLET PO SCH ×2 (09:34→20:38)
[2017-06-10] MEDS: Furosemide 40 MG/4 ML VIAL IVP SCH (09:35)
[2017-06-10] MEDS: amLODIPine 5 MG TABLET PO SCH (09:35)
[2017-06-10] MEDS: Azithromycin 500 MG in D5% in Water 250 ML IVPB SCH (12:40)
[2017-06-10] MEDS ORDERED: *HR* Warfarin 3 MG TABLET PO SCH (18:00)
--- NOTE | 2017-06-10 19:34 | Event Note ---
Date of Encounter: 06/10/17 Time of Encounter: 10:00 I examined this patient and my medical decision-making was reviewed with the Resident Physician on 06/10/17. I agree with the documented findings, disposition and treatment plan as described except to the extent set forth below. Mr. Lora is currently in observation for acute CHF and pneumonia. He remains moderate to high risk. Mr Lora is doing somewhat better with abx. He is moving around more. No fever at this time. No CP. No GI issues. Exam Alert. Comfortable Mucus membranes dry Heart distant Lungs with rales Abd soft Edema present I/P 1. CHF exac 2. PNA - aerobic bacteria 3. Chronic a fib 4. DM 5. CKD 3 6. HCC Further diagnoses and plan per progress note of today.
--- NOTE | 2017-06-10 22:36 | Internal Med Progress Note ---
<Alize Logan - Last Filed: 06/10/17 22:32> Date of Encounter: 06/10/17 Time of Encounter: 10:10 - Assessment and plan (1) Heart failure, diastolic, with acute decompensation Status: Acute Assessment and plan: - SOB improving. - Currently tolerating 2L O2 via NC. No conversational dyspnea. - -6 L since admission, continue strict I/Os. - Continue diuresis, decreased lasix to 40 mg IV Qday due to bump in Cr. - Monitor creatinine and electrolytes. - 6 minute walk test today. Does not qualify for home O2. (2) Pneumonia Status: Acute Assessment and plan: - CXR showed possible left basilar consolidation suspicious of PNA - Clinically improving. Respiratory infection panel negative. - No WBC elevation or fevers today. - Continue ceftriaxone and azithromycin, day 2 for a total of 5 days. Qualifiers: Pneumonia type: due to unspecified organism Laterality: left Lung location: lower lobe of lung Qualified Code(s): J18.1 - Lobar pneumonia, unspecified organism (3) CKD (chronic kidney disease) stage 3, GFR 30-59 ml/min Status: Chronic Assessment and plan: - BUN/CR of /.43 - Appears to be at baseline kidney function however creatinine increasing. - Decreased lasix dose as above. - Will continue to monitor for increase in creatinine with lasix use. - Avoid nephrotoxic drugs. (4) Afib Status: Chronic Assessment and plan: - Rate controlled in 70s. - INR 1.8, pharmacy to dose. - Continue metoprolol and coumadin Qualifiers: Atrial fibrillation type: chronic Qualified Code(s): I48.2 - Chronic atrial fibrillation (5) Non-insulin dependent type 2 diabetes mellitus Status: Chronic Assessment and plan: - A1c of 5.3% - SSI (6) DANNIELLE (obstructive sleep apnea) Status: Chronic Assessment and plan: - Uses BIPAP at home. Will continue - SW following for home needs. (7) HCC (hepatocellular carcinoma) Status: Chronic Assessment and plan: - To follow up with oncology in july. (8) DVT prophylaxis Status: Acute Assessment and plan: Anticoagulated with coumadin. - Subjective Interval history: Patient was seen and examined at bedside this AM. He reports continued improvement in his breathing. who is present at bedside has noticed decreased labored breathing. Able to ambulate to bathroom and chair without SOB. Admits to productive cough. Denies any chest pain, wheezes, nausea, vomiting. - Constitutional Vitals: Temp Pulse Resp BP Pulse Ox 98.3 F 78 14 146/74 93 06/10/17 20:03 06/10/17 20:03 06/10/17 21:19 06/10/17 20:03 06/10/17 21:19 General appearance: Present: cooperative, morbidly obese, pleasant, no acute distress, answers questions appropriately Exam: Gen: Vitals noted. No acute distress. AAOx3 HEENT: EOMI, normocephalic, atraumatic, dry mucus membranes. Neck: Supple. Normal ROM. No adenopathy Cardiac: RRR, no murmur, +S1/S2 Pulmonary: Rales present in LLL > RLL Abdomen: soft, nontender, nondistended, BS noted, no guarding Extremities: LE edema improved from yesterday, no cyanosis or clubbing, pedal pulses symmetric Neuro: AAOx3, moves all extremities, no focal deficits, no speech deficits Psych: Appropriately answers questions, cooperative, appropriate behavior Internal Medicine: Result - Labs CBC & Chem 7: 06/10/17 04:09 06/10/17 04:09 Labs: Short CBC 06/10/17 Range/Units 04:09 WBC 5.8 (4.3-11.1) K/mcL Hgb 11.4 L (12.9-16.9) g/dL Hct 33.4 L (37.5-50.1) % Plt Count 143 (140-400) K/mcL BMP 06/10/17 04:09 Sodium 138 Potassium 3.5 Chloride 102 Carbon Dioxide 27 BUN 31 H D Creatinine 1.43 H Glucose 111 H Calcium 9.2 - ABG Interpretation ABG results: PT/INR, D-dimer PT 20.1 Seconds (9.4-12.1) H 06/10/17 04:09 Consult Discharge Plan - Plan Instructions: Heart Failure (DC), Atrial Fibrillation (DC) Referrals: Dulce Maria Cabral MD [Primary Care Provider] - 06/20/17 10:30 am Prescriptions: Azithromycin [Azithromycin 6-Tab Pack] 250 mg PO PER PKG DI #6 tab Cefpodoxime Proxetil 200 mg PO BID #6 tablet <Jose Mohan - Last Filed: 06/11/17 17:36> Date of Encounter: 06/10/17 - Assessment and plan (1) Congestive heart failure Status: Acute Qualifiers: Congestive heart failure type: diastolic Congestive heart failure chronicity: acute on chronic Qualified Code(s): I50.33 - Acute on chronic diastolic (congestive) heart failure (2) DANNIELLE (obstructive sleep apnea) Status: Chronic (3) Pneumonia Status: Acute Qualifiers: Pneumonia type: due to unspecified organism Laterality: left Lung location: lower lobe of lung Qualified Code(s): J18.1 - Lobar pneumonia, unspecified organism (4) COPD (chronic obstructive pulmonary disease) Status: Chronic Qualifiers: COPD type: emphysema Emphysema type: panlobular Qualified 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 (5) Afib Status: Chronic Qualifiers: Atrial fibrillation type: chronic Qualified Code(s): I48.2 - Chronic atrial fibrillation (6) CKD (chronic kidney disease) stage 3, GFR 30-59 ml/min Status: Chronic - Constitutional Vitals: Temp Pulse Resp BP Pulse Ox 98.1 F 62 20 124/63 93 06/11/17 11:53 06/11/17 11:53 06/11/17 11:53 06/11/17 11:53 06/11/17 11:53 Internal Medicine: Result - Labs CBC & Chem 7: 06/11/17 04:00 06/11/17 04:00 Labs: Short CBC 06/11/17 Range/Units 04:00 WBC 5.8 (4.3-11.1) K/mcL Hgb 11.0 L (12.9-16.9) g/dL Hct 32.5 L (37.5-50.1) % Plt Count 181 (140-400) K/mcL Neutrophils # 4.3 (1.6-8.9) K/mcL BMP 06/11/17 04:00 Sodium 137 Potassium 3.5 Chloride 101 Carbon Dioxide 26 BUN 33 H Creatinine 1.55 H Glucose 138 H Calcium 9.4 - ABG Interpretation ABG results: PT/INR, D-dimer PT 20.5 Seconds (9.4-12.1) H 06/11/17 04:00 - Attending Attestation I examined this patient and my medical decision-making was reviewed with the Resident Physician on 06/10/17. I agree with the documented findings, disposition and treatment plan as described except to the extent set forth below. Please see event note of this date.
[2017-06-11 04:08] LABS: Basophils # 0.1 K/mcL (0.0-0.2); Eosinophils # 0.2 K/mcL (0.0-0.6); Eosinophils % 4.2 %; Hematocrit 32.5 % (37.5-50.1); Immature Granulocytes % 0.3 % (0-4); Immature Platelets 3.8 % (1.1-6.1); Lymphocytes # 0.6 K/mcL (0.6-4.6); Lymphocytes % 10.4 %; Mean Corpuscular HGB Conc 33.8 g/dL (31.6-35.5); Mean Corpuscular Hemoglobin 30.9 pg (28.0-33.3); Mean Corpuscular Volume 91.3 fL (83.0-100.0); Mean Platelet Volume 10.2 fL (9.4-12.4); Monocytes # 0.6 K/mcL (0.0-1.3); Monocytes % 9.5 %; Neutrophils # 4.3 K/mcL (1.6-8.9); Platelet Count 181 K/mcL (140-400); Red Blood Count 3.56 M/mcL (4.19-5.50); Segmented Neutrophils % 74.6 %
[2017-06-11 04:13] LABS: INR 1.9; Prothrombin Time 20.5 Seconds (9.4-12.1)
[2017-06-11 04:19] LABS: Calcium 9.4 mg/dL (8.6-10.8); Potassium 3.5 mEq/L (3.5-4.5)
[2017-06-11] MEDS: Metoprolol 100 MG TABLET PO SCH (08:19)
[2017-06-11] MEDS: Aspirin Enteric Coated 81 MG Tablet PO SCH (08:19)
[2017-06-11] MEDS: amLODIPine 5 MG TABLET PO SCH (08:20)
[2017-06-11] MEDS: Insulin LISPRO 300 UNITS/3 ML VIAL SQ SCH ×2 (08:21→13:35)
[2017-06-11] MEDS: Budesonide/Formoterol 160/4.5 MDI IH SCH (08:54)
[2017-06-11] MEDS ORDERED: Spironolactone 25 MG TABLET PO SCH (09:00)
[2017-06-11] MEDS ORDERED: Furosemide 40 MG/4 ML VIAL IVP SCH (09:00)
[2017-06-11] MEDS ORDERED: Isosorbide MONOnitrate (24 HR) 60 MG TAB.ER.24H PO SCH (09:00)
--- NOTE | 2017-06-11 11:09 | Discharge Summary ---
<Alize Logan - Last Filed: 06/11/17 16:44> Date of Encounter: 06/11/17 Time of Encounter: 09:30 - Discharge Diagnosis (1) Heart failure, diastolic, with acute decompensation Priority: Primary Status: Acute (2) Pneumonia Priority: Secondary Status: Acute Qualifiers: Pneumonia type: due to unspecified organism Laterality: left Lung location: lower lobe of lung Qualified Code(s): J18.1 - Lobar pneumonia, unspecified organism (3) CKD (chronic kidney disease) stage 3, GFR 30-59 ml/min Priority: Secondary Status: Chronic (4) Afib Priority: Secondary Status: Chronic Qualifiers: Atrial fibrillation type: chronic Qualified Code(s): I48.2 - Chronic atrial fibrillation (5) Non-insulin dependent type 2 diabetes mellitus Priority: Secondary Status: Chronic (6) DANNIELLE (obstructive sleep apnea) Priority: Secondary Status: Chronic (7) HCC (hepatocellular carcinoma) Priority: Secondary Status: Chronic (8) DVT prophylaxis Priority: Secondary Status: Acute - Discharge Medications Prescriptions: Azithromycin [Azithromycin 6-Tab Pack] 250 mg PO PER PKG DI #6 tab Cefpodoxime Proxetil 200 mg PO BID #6 tablet Home Medications: Amlodipine [Norvasc] 10 mg PO DAILY 03/26/15 [History] Aspirin Enteric Coated [Aspirin EC] 81 mg PO DAILY 03/26/15 [History] Cholecalciferol (Vitamin D3) [Vitamin D3] 1,000 unit PO DAILY 03/26/15 [History] Furosemide [Lasix] 40 mg PO DAILY PRN 03/26/15 [History] Gemfibrozil [Lopid] 600 mg PO BIDWM 03/26/15 [History] Glimepiride 1 mg PO DAILY 03/26/15 [History] Isosorbide MONOnitrate [Isosorbide Mononitrate ER] 60 mg PO DAILY 03/26/15 [ History] Metoprolol Tartrate [Lopressor] 150 mg PO BID 03/26/15 [History] Potassium Chloride 10 meq PO DAILY 03/26/15 [History] Pravastatin Sodium [Pravachol] 20 mg PO QPM 03/26/15 [History] Warfarin [Coumadin] 3 mg PO SUTUTHSA 03/26/15 [History] Albuterol Sulfate [Proair Respiclick] 2 puff IH Q4HR PRN 12/24/16 [History] Budesonide/Formoterol 160/4.5 [Symbicort 160/4.5] 2 puff IH BIDR PRN 12/24/16 [ History] Lisinopril [Zestril] 10 mg PO QPM 12/24/16 [History] Montelukast Sodium [Singulair] 10 mg PO DAILY 12/24/16 [History] Spironolactone [Aldactone] 25 mg PO DAILY 12/24/16 [History] Pantoprazole Sodium 40 mg PO DAILY #30 03/18/17 [Rx] LORazepam [Ativan] 0.5 mg PO ONCE #4 tablet 04/22/17 [Rx] DiphenhydraMINE [Benadryl] 25 mg PO Q8HR PRN 06/07/17 [History] Lisinopril [Zestril] 20 mg PO QAM 06/07/17 [History] Warfarin [Coumadin] 2.5 mg PO WEFR 06/07/17 [History] Warfarin [Coumadin] 5 mg PO MO 06/07/17 [History] Azithromycin [Azithromycin 6-Tab Pack] 250 mg PO PER PKG DI #6 tab 06/11/17 [Rx] Cefpodoxime Proxetil 200 mg PO BID #6 tablet 06/11/17 [Rx] Allergies/Adverse Reactions: 3 Allergy/AdvReac Type Severity Reaction Status Date / Time clonidine AdvReac Dry Mucus Verified 01/07/17 18:29 Membranes Iodinated Contrast- Oral and AdvReac Flushing Verified 01/07/17 18:29 IV Dye Date of admission: 06/07/17 23:06 Primary care physician: Dulce Maria Baugh-[facility] Consults: 06/07/17 23:50 Consult to Pastoral Services [CONS] Routine Comment: 06/09/17 12:11 Consult to Nurse Navigator [CONS] Routine Comment: 06/10/17 11:06 Consult to Occupational Therapy [CONS] Routine Comment: Evaluate, develop and implement POC Reason for Consult: admitted for CHF, pneumonia Consult to Physical Therapy [CONS] Routine Comment: Evaluate, develop and implement POC Reason for Consult: stability and strength; admitted for CHF, pneumonia Discharging clinician: Alize Logan Anticipated date of discharge: 06/11/17 - Patient Status Disposition: Home, Self-Care Condition: Fair Functional capacity at discharge: independent ambulation Overall status at discharge: patient is progressing back to baseline - Discharge Instructions Instructions: Heart Failure (DC), Atrial Fibrillation (DC) Follow Up With: Dulce Maria Cabral MD [Primary Care Provider] - 06/20/17 10:30 am - Diet and Activity Activity: increase activity as tolerated, resume usual activities as tolerated Diet: diabetic diet, low fat, low cholesterol, low salt diet Interval History: Patient was seen and examined at bedside this morning. Patient is feeling well and is without complaints. He and his are hopeful that they will be discharged this weekend. Patient admits to "hacking" cough without sputum production. Chest pain, SOB, abdominal pain, nausea, vomiting are denied by patient. Hospital course: Mr. Lora is a 76 year old male who presented to the ED with shortness of breath. Work up included elevated BNP, negative troponin. EKG showed afib with RVR and rate 120, it showed no acute ischemic changes,. CXR showed acute pulmonary edema with small bilateral pleural effusions. He was placed on BiPAP and given aspirin, nitro drip, and lasix. He was admitted to hospitalist service for acute exacerbation of CHF. Over the course of his hospital stay, Mr. Lora gradually improved. Nearly 7 liters were diuresed with Lasix over his admission. Repeat CXR was done because the patient's shortness of breath was not improving and he had a Tmax of 101F. Findings on CXR were suspicious for left basilar pneumonia and reactive pleural effusion. It was determined he had pneumonia; IV rocephin and IV zithromax were started and patient clinically improved. Six minute walk test was done on day of discharge and the lowest his oxygen saturation got was 92%, so he did not qualify for home oxygen. - Time Spent with Patient Total time spent providing and/or coordinating discharge services: - Constitutional Vitals: Temp Pulse Resp BP Pulse Ox 98.3 F 63 16 139/76 94 06/11/17 06:38 06/11/17 06:38 06/11/17 08:54 06/11/17 08:54 06/11/17 08:54 General appearance: Present: cooperative, pleasant, no acute distress, answers questions appropriately Exam: Gen: Vitals noted. No acute distress. HEENT: EOMI, normocephalic, atraumatic Neck: Supple. Normal ROM. Cardiac: Regular rate, irregular rhythm, no murmur, +S1/S2 Pulmonary: CTA b/l, no wheezing, no rhonchi, normal respiratory effort Abdomen: soft, nontender, nondistended, no guarding Extremities: no LE edema, pedal pulses symmetric Neuro: AAOx3, moves all extremities, no focal deficits, no speech deficits Psych: Appropriately answers questions, cooperative, appropriate behavior <Jose Mohan - Last Filed: 06/11/17 17:45> Date of Encounter: 06/11/17 - Discharge Diagnosis (1) Acute respiratory failure with hypoxia Priority: Primary Status: Resolved (2) Congestive heart failure Priority: Primary Status: Acute Qualifiers: Congestive heart failure type: diastolic Congestive heart failure chronicity: acute on chronic Qualified Code(s): I50.33 - Acute on chronic diastolic (congestive) heart failure (3) DANNIELLE (obstructive sleep apnea) Status: Chronic (4) Pneumonia Status: Acute Qualifiers: Pneumonia type: due to unspecified organism Laterality: left Lung location: lower lobe of lung Qualified Code(s): J18.1 - Lobar pneumonia, unspecified organism (5) COPD (chronic obstructive pulmonary disease) Priority: Secondary Status: Chronic Qualifiers: COPD type: emphysema Emphysema type: panlobular Qualified 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 (6) Afib Status: Chronic Qualifiers: Atrial fibrillation type: chronic Qualified Code(s): I48.2 - Chronic atrial fibrillation (7) CKD (chronic kidney disease) stage 3, GFR 30-59 ml/min Status: Chronic (8) HCC (hepatocellular carcinoma) Status: Chronic (9) Non-insulin dependent type 2 diabetes mellitus Status: Chronic Date of admission: 06/07/17 23:06 Primary care physician: Dulce Maria Baugh-[facility] Consults: 06/07/17 23:50 Consult to Pastoral Services [CONS] Routine Comment: 06/09/17 12:11 Consult to Nurse Navigator [CONS] Routine Comment: 06/10/17 11:06 Consult to Occupational Therapy [CONS] Routine Comment: Evaluate, develop and implement POC Reason for Consult: admitted for CHF, pneumonia Consult to Physical Therapy [CONS] Routine Comment: Evaluate, develop and implement POC Reason for Consult: stability and strength; admitted for CHF, pneumonia Hospital course: Mr. Lora is a 76 year old male - Time Spent with Patient Total time spent providing and/or coordinating discharge services: 38min - Constitutional Vitals: Temp Pulse Resp BP Pulse Ox 98.1 F 62 20 124/63 93 06/11/17 11:53 06/11/17 11:53 06/11/17 11:53 06/11/17 11:53 06/11/17 11:53 - Attending Attestation I examined this patient and my medical decision-making was reviewed with the Resident Physician on 06/11/17. I agree with the documented findings, disposition and treatment plan as described except to the extent set forth below. Mr Lora has been admitted for acute hypoxic resp failure due to CHF. He was also found to have pneumonia. He is now afebrile with stable vitals. He does not require home oxygen. No CP. Less dyspnea. He feels ready to go home. He is nearly 7 liters negative since admit. Exam Alert. Comfortable Mucus membranes dry Heart irreg Lungs diminished Abd soft Less edema Plan D/C home today Follow up with PCP.
[2017-06-11 11:53] VITALS: BP 124/63
[2017-06-11] MEDS: Azithromycin 500 MG in D5% in Water 250 ML IVPB SCH (13:34)
[2017-06-13] MEDS ORDERED: *HR* Warfarin 5 MG TABLET PO SCH (18:00)
== END 2017-06-11 17:00 | disposition home or self-care (01) ==
LOC: 2NENU 19:28 → EMEROO 19:28 → 2NENU 23:45
PROVIDERS: ADMIT Internal Medicine; ATTEND Internal Medicine

== ENCOUNTER 2018-04-17 23:57 | Observation (INO) ==
[2018-04-18 01:29] LABS: Bilirubin,Urine Negative (Negative); Blood,Urine Negative (Negative); Clarity,Urine Clear (Clear); Color,Urine Yellow (Yellow); Glucose,Urine (UA) >=1000 mg/dL (Normal); Ketones,Urine Negative (Negative); Leukocyte Esterase,Urine Negative (Negative); Nitrite,Urine Negative (Negative); PH,Urine 6.5 pH Units (5.0-8.0); Protein,Urine Trace mg/dL (Neg-Trace); Specific Gravity,Urine 1.017 (1.010-1.025); Urobilinogen,Urine Normal (Normal)
--- NOTE | 2018-04-18 01:31 | Emergency Department Note ---
Disposition Clinical Impression: Hyperglycemia, DONTA (acute kidney injury) Sepsis Qualifiers: Sepsis type: sepsis due to unspecified organism Qualified Code(s): A41.9 - Sepsis, unspecified organism Disposition: Admitted As Inpatient Condition: Fair Referrals: Dulce Maria Cabral MD [Primary Care Provider] - Forms: ED Satisfaction Letter Time of Disposition: 03:53 General Adult HPI - General Chief complaint: ED Shortness of Breath/Dyspnea Stated complaint: Vanita incontinent Time Seen by Provider: 04/18/18 00:52 Source: patient, EMS Limitations: no limitations Nursing Notes Reviewed: Yes Vital Signs Reviewed: Yes - History of Present Illness HPI Narrative: Patient is a 77-year-old male who presents to [facility] ED with a chief complaint of shortness of breath, generalized weakness, urinary incontinence. Patient's is present at the bedside. States patient has had an issue with cancer around his liver that has been treated with interventional radiology. Over the last several months, patient has had a cough that was initially treated as congestive heart failure and then treated as a pneumonia with a Z-Fahad about 3-4 weeks ago. states that the cough did seem to get better but then patient continued to be very weak. States he needed a walker to get up last week and then this week he is unable to get himself up at all. Denies any nausea, vomiting, chest pain, abdominal pain, problems with bowel movements. Patient has had frequent urination and has been incontinent of his urine. Has also been spiking fevers at home. 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 He was recently seen by interventional radiology for biopsy of the lung nodule. However since they noted the nodule to be smaller than previous, the procedure was canceled. Onset (ago): day(s) Pain Scale: 0 Consistency: constant, Worsening Improves with: nothing Worsens with: nothing Associated symptoms: Reports: cough, fever/chills, loss of appetite, shortness of breath, weakness. Denies: chest pain Treatments Prior to Arrival: none - Related Data Home Medications Medication Instructions Recorded Confirmed Amlodipine [Norvasc] 10 mg PO DAILY 03/26/15 03/22/18 Aspirin Enteric Coated [Aspirin EC] 81 mg PO DAILY 03/26/15 03/22/18 Cholecalciferol (Vitamin D3) 1,000 unit PO DAILY 03/26/15 03/22/18 [Vitamin D3] Furosemide [Lasix] 40 mg PO BID PRN 03/26/15 03/22/18 Gemfibrozil [Lopid] 600 mg PO BIDWM 03/26/15 03/22/18 Glimepiride 1 mg PO DAILY 03/26/15 03/22/18 Isosorbide MONOnitrate [Isosorbide 60 mg PO DAILY 03/26/15 03/22/18 Mononitrate ER] Metoprolol Tartrate [Lopressor] 150 mg PO BID 03/26/15 03/22/18 Potassium Chloride 10 meq PO DAILY 03/26/15 03/22/18 Pravastatin Sodium [Pravachol] 20 mg PO QPM 03/26/15 03/22/18 Warfarin [Coumadin] 2.5 mg PO DAILY 03/26/15 03/22/18 Albuterol Sulfate [Proair 2 puff IH Q4HR PRN 12/24/16 03/22/18 Respiclick] Budesonide/Formoterol 160/4.5 2 puff IH BIDR PRN 12/24/16 03/22/18 [Symbicort 160/4.5] Montelukast Sodium [Singulair] 10 mg PO DAILY 12/24/16 03/22/18 Spironolactone [Aldactone] 25 mg PO DAILY 12/24/16 03/22/18 Lisinopril [Zestril] 10 mg PO TID 06/07/17 03/22/18 Fexofenadine/Pseudoephedrine 1 each PO DAILY 08/26/17 03/22/18 [Estelle-D 24 Hour Tablet] Previous Rx's Medication Instructions Recorded Pantoprazole Sodium 40 mg PO DAILY #30 tablet. 08/08/17 LORazepam [Ativan] 1 mg PO ONCE 2 Days #2 tablet 03/14/18 Allergies Allergy/AdvReac Type Severity Reaction Status Date / Time clonidine AdvReac Dry Mucus Verified 03/14/18 11:01 Membranes Iodinated Contrast- Oral and AdvReac Flushing Verified 03/14/18 11:01 IV Dye All systems ED: reviewed and negative except as stated. Past Medical History - Past Medical History Attestation: Yes The following information was validated with the patient. Source: patient Medical history: Reports: atrial fibrillation, cancer, CHF, COPD, diabetes, hyperlipidemia, hypertension, renal disease Psychiatric history: Reports: no psych history - Social History Smoking Status: Former smoker Smokeless Tobacco Status: No Alcohol use: Reports: rarely Drug use: Reports: none Physical Exam - General Limitations: no limitations General appearance: alert, in distress, obese - Head Head exam: atraumatic, normocephalic, normal inspection - Eye Eye exam: Present: EOMI - ENT ENT exam: normal exam, normal oropharynx, mucous membranes moist - Neck Neck exam: Present: normal inspection, full ROM, trachea midline - Chest Chest inspection: Present: normal inspection, symmetric chest wall rise - Respiratory Respiratory exam: Present: normal lung sounds bilaterally - Cardiovascular Cardiovascular exam: Present: tachycardia, irregular rhythm (a fib) - Abdominal Exam Abdominal exam: Present: soft, Non-Tender. Absent: tenderness, distention, guarding, rebound, rigidity - Extremities Exam Extremities exam: Present: normal inspection, full ROM. Absent: tenderness, pedal edema - Neurological Exam Neurological exam: Present: alert, oriented X3 - Psychiatric Psychiatric exam: Present: normal affect, normal mood - Skin Skin exam: Present: warm, dry, intact, normal color Course Course Narrative: Patient seen and examined. Generalized weakness along with shortness of breath over the last several weeks. Lab work, EKG, chest x-ray, urine analysis, and blood cultures ordered. He is febrile here with a temp of 101.5. Tylenol given. No abdominal pain to suggest intra-abdominal pathology. Concern for possible sepsis. We will treat with vancomycin and Zosyn. We will give a dose of 500 mL IV fluid bolus. We will cautiously administer fluid since patient has a history of congestive heart failure and is short of breath. - Reevaluation(s) Reevaluation #1: Patient's lab work shows mild hyperkalemia, hyperglycemia. Patient does not have any signs of peaked T waves on EKG. Patient does not have DKA as he has not acidotic and does not have a gap or serum ketones. However we will give a 6 unit dose of insulin. His white count is 15,000. We will admit for sepsis, hyperglycemia, acute kidney injury. I discussed with the hospitalist Dr. Cardoso who has accepted patient for admission. Time: 03:51 Vital Signs Temperature 101.5 F H 04/18/18 00:03 Pulse Rate 99 04/18/18 00:03 Respiratory Rate 22 04/18/18 00:03 Blood Pressure 166/89 04/18/18 00:03 O2 Sat by Pulse Oximetry 98 04/18/18 00:03 Temperature 98.4 F 04/18/18 03:28 Pulse Rate 97 04/18/18 03:28 Respiratory Rate 25 04/18/18 03:28 Blood Pressure 120/71 04/18/18 03:28 O2 Sat by Pulse Oximetry 96 04/18/18 03:28 Oxygen Delivery Oxygen Delivery Room Air Medical Decision Making - Medical Records Medical records reviewed: Yes I reviewed the patient's medical records. - Lab Data Lab results reviewed: Yes I reviewed the patient's lab results. Result diagrams: 04/18/18 02:00 04/18/18 02:00 Lab Results 04/18/18 04/18/18 04/18/18 Range/Units 01:21 02:00 02:00 WBC 15.6 H (4.3-11.1) K/mcL RBC 4.01 L (4.19-5.50) M/mcL Hgb 12.6 L (12.9-16.9) g/dL Hct 36.6 L (37.5-50.1) % MCV 91.3 (83.0-100.0) fL MCH 31.4 (28.0-33.3) pg MCHC 34.4 (31.6-35.5) g/dL RDW 14.4 (11.5-14.5) % Plt Count 126 L (140-400) K/mcL MPV 11.0 (9.4-12.4) fL Sodium 125 L (136-145) mEq/L Potassium 6.0 H (3.5-5.1) mEq/L Chloride 95 L (98-107) mEq/L Carbon Dioxide 23 (23-29) mEq/L BUN 52 H (8-23) mg/dL Creatinine 1.64 H (0.70-1.30) mg/dL Est GFR ( Amer) 50 L (> 60) Est GFR (Non-Af Amer) 41 L (> 60) BUN/Creatinine Ratio 32 H (6-26) Glucose 560 H* (70-105) mg/dL Calculated Osmolality 300 (280-300) Lactic Acid (0.5-2.2) mmol/L Calcium 9.0 (8.6-10.3) mg/dL Troponin I 0.03 (< 0.04) ng/mL B-Natriuretic Peptide (Less than 100) pg/mL Beta-Hydroxybutyric Acd (0.02-0.27) mmol/L Urine Color Yellow (Yellow) Urine Clarity Clear (Clear) Urine pH 6.5 (5.0-8.0) pH Units Ur Specific [place] 1.017 (1.010-1.025) Urine Protein Trace (Neg-Trace) mg/dL Urine Glucose (UA) >=1000 H (Normal) mg/dL Urine Ketones Negative (Negative) mg/dL Urine Blood Negative (Negative) Urine Nitrite Negative (Negative) Urine Bilirubin Negative (Negative) Urine Urobilinogen Normal (Normal) mg/dL Ur Leukocyte Esterase Negative (Negative) Urine Microscopic RBC 0-3 (0-3) per hpf Urine Microscopic WBC 0-3 (0-3) per hpf Ur Squamous Epith Cells Moderate H (None-Few) per lpf Urine Bacteria None Seen (None-Few) per hpf Hyaline Casts None Seen (None-Few) per lpf Ur Culture Indicated? NO (NO) 04/18/18 04/18/18 04/18/18 Range/Units 02:00 02:00 02:00 WBC (4.3-11.1) K/mcL RBC (4.19-5.50) M/mcL Hgb (12.9-16.9) g/dL Hct (37.5-50.1) % MCV (83.0-100.0) fL MCH (28.0-33.3) pg MCHC (31.6-35.5) g/dL RDW (11.5-14.5) % Plt Count (140-400) K/mcL MPV (9.4-12.4) fL Sodium (136-145) mEq/L Potassium (3.5-5.1) mEq/L Chloride (98-107) mEq/L Carbon Dioxide (23-29) mEq/L BUN (8-23) mg/dL Creatinine (0.70-1.30) mg/dL Est GFR ( Amer) (> 60) Est GFR (Non-Af Amer) (> 60) BUN/Creatinine Ratio (6-26) Glucose (70-105) mg/dL Calculated Osmolality (280-300) Lactic Acid 1.2 (0.5-2.2) mmol/L Calcium (8.6-10.3) mg/dL Troponin I (< 0.04) ng/mL B-Natriuretic Peptide 240 H (Less than 100) pg/mL Beta-Hydroxybutyric Acd 0.18 (0.02-0.27) mmol/L Urine Color (Yellow) Urine Clarity (Clear) Urine pH (5.0-8.0) pH Units Ur Specific [place] (1.010-1.025) Urine Protein (Neg-Trace) mg/dL Urine Glucose (UA) (Normal) mg/dL Urine Ketones (Negative) mg/dL Urine Blood (Negative) Urine Nitrite (Negative) Urine Bilirubin (Negative) Urine Urobilinogen (Normal) mg/dL Ur Leukocyte Esterase (Negative) Urine Microscopic RBC (0-3) per hpf Urine Microscopic WBC (0-3) per hpf Ur Squamous Epith Cells (None-Few) per lpf Urine Bacteria (None-Few) per hpf Hyaline Casts (None-Few) per lpf Ur Culture Indicated? (NO) - Radiology Data Radiology results reviewed: Yes I reviewed the patient's radiology results. Chest X-Ray 04/18/18 00:07 IMPRESSION: Pleural based mass within the right upper lobe. Cardiomegaly. D/ / Johnnie Champion MD / Johnnie Champion MD Interpreting Provider: Johnnie Champion MD - EKG Data EKG #1 EKG attestation: Yes I reviewed and interpreted this EKG. EKG results narrative: EKG done at 0006 shows atrial fibrillation with a rate of [address] elevation. Inverted T waves noted in leads 1, aVL, V4 through V6. This does appear new when compared with prior EKG done 06/07/2017. Attestation Statement - Attestation Attestation: Dr Thomas note: Pt seen in conjunction w/resident Dr Rowan; Please see her charting for complete docuentation; I agree w/ pt's treatment and disposition and spent face to face time w/ the pt; labs reviewed; renal injury is acute on chronic; vitals stable on admission; progressive weakness for 2-3 days; no pain; fever since yesterday has been subjective; lungs/urine clear in ER on testing; known metastatic CA at baseline
[2018-04-18 01:32] LABS: Bacteria,Urine None Seen per hpf (None-Few); Hyaline Casts,Urine None Seen per lpf (None-Few); RBC,Urine 0-3 per hpf (0-3); Squamous Epithelial Cell,Urine Moderate per lpf (None-Few); WBC,Urine 0-3 per hpf (0-3)
[2018-04-18] MEDS ORDERED: Piperacillin/Tazobactam 3.375 GM in 0.9 % Sodium Chloride Mini Bag 100 ML IVPB ONE (02:12)
[2018-04-18 02:22] LABS: Hematocrit 36.6 % (37.5-50.1); Hemoglobin 12.6 g/dL (12.9-16.9); Mean Corpuscular HGB Conc 34.4 g/dL (31.6-35.5); Mean Corpuscular Hemoglobin 31.4 pg (28.0-33.3); Mean Corpuscular Volume 91.3 fL (83.0-100.0); Platelet Count 126 K/mcL (140-400); Red Blood Count 4.01 M/mcL (4.19-5.50); Red Cell Distribution Width 14.4 % (11.5-14.5)
[2018-04-18] MEDS ORDERED: Acetaminophen 325 MG TABLET PO ONE (02:36)
[2018-04-18 02:46] LABS: Troponin I 0.03 ng/mL (< 0.04)
[2018-04-18] MEDS ORDERED: 0.9 % Sodium Chloride 500 ML IVC ONE (02:49)
[2018-04-18] MEDS ORDERED: Insulin Regular, Human 100 UNIT/ML IV ONE (03:04)
[2018-04-18 06:02] LABS: VBG HCO3 20 mEq/L (21-27); VBG PCO2 33 mmHg (41-51); VBG PO2 135 mmHg (25-50)
[2018-04-18] MEDS ORDERED: Dextrose Gel 15 GM/37.5 ML TUBE PO PRN ×2 (08:08)
[2018-04-18] MEDS ORDERED: D5% in Water 1,000 ML IVC PRN (08:08)
[2018-04-18] MEDS ORDERED: *HR* Dextrose 50 % in Water (Syg) 50 ML SYRINGE IVP PRN (08:08)
[2018-04-18] MEDS ORDERED: Insulin Human Regular 6 UNIT in 0.9 % Sodium Chloride 10 ML IV ONE (08:42)
[2018-04-18] MEDS: 0.9 % Sodium Chloride 1,000 ML IVC SCH ×2 (10:13→19:33)
[2018-04-18] MEDS: Insulin DETEMIR 100 UNIT/ML X5UNITS SQ SCH (10:19)
[2018-04-18 11:16] LABS: Basophils % 0.2 %; Eosinophils # 0.1 K/mcL (0.0-0.6); Eosinophils % 0.5 %; Hematocrit 34.6 % (37.5-50.1); Hemoglobin 11.8 g/dL (12.9-16.9); Immature Granulocytes % 0.4 % (0-4); Lymphocytes # 0.8 K/mcL (0.6-4.6); Lymphocytes % 6.4 %; Mean Corpuscular HGB Conc 34.1 g/dL (31.6-35.5); Mean Corpuscular Hemoglobin 31.1 pg (28.0-33.3); Mean Corpuscular Volume 91.1 fL (83.0-100.0); Mean Platelet Volume 10.5 fL (9.4-12.4); Monocytes # 0.9 K/mcL (0.0-1.3); Monocytes % 7.3 %; Platelet Count 104 K/mcL (140-400); Red Cell Distribution Width 14.6 % (11.5-14.5); Segmented Neutrophils % 85.2 %
[2018-04-18 11:36] LABS: Albumin/Globulin Ratio 0.9 (1.1-2.2); Bilirubin,Total 2.1 mg/dL (0.3-1.0); Calcium 8.8 mg/dL (8.6-10.3); Globulin 3.5 g/dL (2.4-3.5); Potassium 4.6 mEq/L (3.5-5.1); Total Protein 6.5 g/dL (6.4-8.9)
[2018-04-18 11:38] LABS: Estimated Average Glucose 200 mg/dl; Hemoglobin A1C 8.6 %
[2018-04-18] MEDS: Insulin LISPRO 300 UNITS/3 ML VIAL SQ SCH ×3 (12:13→20:33)
[2018-04-18 12:30] LABS: Adenovirus Not Detected (Not Detect); Bordetella Pertussis Not Detected (Not Detect); Chlamydophila pneumoniae Not Detected (Not Detect); Coronavirus 229E Not Detected (Not Detect); Coronavirus HKU1 Not Detected (Not Detect); Coronavirus NL63 Not Detected (Not Detect); Coronavirus OC43 Not Detected (Not Detect); Human Metapneumovirus Not Detected (Not Detect); Human Rhinovirus/Enterovirus Not Detected (Not Detect); Influenza A Subtype 2009 H1 Not Detected (Not Detect); Influenza A Untypeable Not Detected (Not Detect); Influenza B Not Detected (Not Detect); Mycoplasma pneumoniae Not Detected (Not Detect); Parainfluenza Virus 1 Not Detected (Not Detect); Parainfluenza Virus 2 Not Detected (Not Detect); Parainfluenza Virus 3 Not Detected (Not Detect); Parainfluenza Virus 4 Not Detected (Not Detect); Respiratory Syncytial Virus Not Detected (Not Detect)
[2018-04-18] MEDS ORDERED: Naloxone 0.4 MG/ML INJ IVP PRN (13:10)
[2018-04-18] MEDS ORDERED: Acetaminophen 325 MG TABLET PO PRN (13:14)
--- NOTE | 2018-04-18 13:22 | Internal Med History&Physical ---
Date of Encounter: 04/18/18 Time of Encounter: 12:00 Internal Medicine - H&P: HPI Chief complaint: weakness, polyuria Admitted From: Home History of present illness: Mr. Lora is a 77 year old male with past medical history of atrial fibrillation , diabetes, HCC with ?pleural mets s/p Y-90, hypertension, CKD, COPD, presented to the ED with generalized weakness and polyuria. He states that he has been feeling week for the last few weeks. He was seen by his doctor last Tuesday and was diagnosed with "bronchitis" for which he had completed a course of Z-fahad. He is still on tapering dose of PO prednisone, takes either 10-20mg once a day right now. Since then, he has been complaining of worsening polyuria, polydipsia , poor oral intake, and has been taking less lasix recently. Denies any chest pain, shortness of breath, cough, sputum production, abdominal pain, change in bowel habits, or dysuria. No palpitation, lightheadedness, orthopnea, PND, or leg swelling. Denies any joint pain or new rash. Other than Z-Fahad which she had completed 2 days ago, there were no new medications. He did not think that he had fever or chills at home but had a recorded temperature in the ER at 101.5. Otherwise, he was hemodynamically stable with 98% saturation on room air. Initial investigation showed leukocytosis of 15.6, platelet of 126, sodium 125, creatinine 1.64 from his baseline 1.2-3, and glucose of 439. Lactic acid normal. He admites to not following up for his diabetic care for the last 6 months or so. Troponin was negative and LFT were minimally deranged. Urinalysis was negative for leukocyte esterase or nitrite and chest x-ray did not show any acute processes other than the known right pleural mass. Given his fever and leukocytosis, he was started on Vanco and Zosyn and admitted for further management. Past Med Surg Social Fam HX - Past Medical History Attestation: Yes The following information was validated with the patient. 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 there, skin CA removed, heart cath x2 - Social History Smoking Status: Former smoker Smokeless Tobacco Status: No Alcohol use: rarely Drug use: none - Family History Father Living Status: Hx Family Endocrine Disorder: Yes (DM2) Internal Medicine - H&P: Meds Aspirin Enteric Coated [Aspirin EC] 81 mg PO DAILY 03/26/15 [History] Furosemide [Lasix] 40 mg PO BID PRN 03/26/15 [History] Pravastatin Sodium [Pravachol] 20 mg PO QPM 03/26/15 [History] Albuterol Sulfate [Proair Respiclick] 2 puff IH Q4HR PRN 12/24/16 [History] Budesonide/Formoterol 160/4.5 [Symbicort 160/4.5] 2 puff IH BIDR PRN 12/24/16 [ History] Spironolactone [Aldactone] 25 mg PO DAILY 12/24/16 [History] Amlodipine Besylate 10 mg PO DAILY 04/18/18 [History] Cholecalciferol (D-3) [Vitamin D] 1,000 unit PO DAILY 04/18/18 [History] Gemfibrozil [Lopid] 600 mg PO BID 04/18/18 [History] Glimepiride [Amaryl] 1 mg PO DAILY 04/18/18 [History] Isosorbide MONOnitrate (24 HR) [Imdur] 60 mg PO DAILY 04/18/18 [History] Lisinopril [Zestril] 10 mg PO HS 04/18/18 [History] Lisinopril [Zestril] 20 mg PO QAM 04/18/18 [History] Losartan Potassium [Cozaar] 100 mg PO DAILY 04/18/18 [History] Metoprolol [Lopressor] 150 mg PO BID 04/18/18 [History] Montelukast [Singulair] 10 mg PO HS 04/18/18 [History] Pantoprazole Sodium 40 mg PO DAILY PRN 04/18/18 [History] Warfarin [Coumadin] 2.5 mg PO AD 04/18/18 [History] Warfarin [Coumadin] 3 mg PO AD 04/18/18 [History] 3 Allergy/AdvReac Type Severity Reaction Status Date / Time clonidine AdvReac Dry Mucus Verified 04/18/18 08:30 Membranes Iodinated Contrast- Oral and AdvReac Flushing Verified 04/18/18 08:30 IV Dye All Systems PM: A 10-system review of systems was performed and is negative for pertinent findings except as documented above in the HPI. - Constitutional Vitals: Temp Pulse Resp BP Pulse Ox 97.6 F 95 19 119/69 97 04/18/18 11:23 04/18/18 11:23 04/18/18 11:23 04/18/18 11:23 04/18/18 11:23 Exam: General: Alert and oriented, not in acute distress. HEENT:EOM, pupils equal, round and reactive. No jaundice Cardiovascular:Normal S1 & S2, irregular rhythm, normal rate Lungs: clear to auscultation, no wheezes/rales Abdomen:Soft, non-tender, no rigidity. Extremities:No deformity or swelling Neurological:Normal cognition and motor skills. Non-focal Skin:Normal color, no rash, no lesions. Pulses:Carotid and radial pulses normal +2. Rest of the physical exam is non contributory Internal Med - H&P Results - Labs CBC & Chem 7: 04/18/18 11:05 04/18/18 11:05 Labs: Short CBC 04/18/18 Range/Units 11:05 WBC 11.8 H (4.3-11.1) K/mcL Hgb 11.8 L (12.9-16.9) g/dL Hct 34.6 L (37.5-50.1) % Plt Count 104 L (140-400) K/mcL Neutrophils # 10.0 H (1.6-8.9) K/mcL BMP 04/18/18 11:05 Sodium 130 L Potassium 4.6 Chloride 103 Carbon Dioxide 21 L BUN 47 H Creatinine 1.50 H Glucose 381 H Calcium 8.8 Liver Function 04/18/18 Range/Units 11:05 Total Bilirubin 2.1 H (0.3-1.0) mg/dL AST 42 H (13-39) Units/L ALT 60 H (7-52) Units/L Alkaline Phosphatase 132 H (34-104) Units/L Albumin 3.0 L (3.5-5.7) g/dL - ABG Interpretation ABG results: 04/18/18 05:53 VBG pH 7.40 VBG pCO2 33 L VBG pO2 135 H VBG HCO3 20 L - Assessment and plan (1) Sepsis Current Visit: Yes Status: Suspected Assessment and plan: Initially concern for sepsis with fever and leukocytosis satisfying 2/4 SIRS criteria However, patient has no identifiable foci of infection. UA unremarkable, CXR without acute processes. Leukocytosis may be due to the high-dose steroids that he has been receiving. Not wheezing currently and had already received 7 day course -> d/c steroid He does not complain of abdominal pain, jaundice, change in stool color. Benign abdo exam. Low suspicion for hepatobiliary/GI source. ?viral, check respiratory viral panel Follow up on blood cultures no more fever since the initial presentation, will monitor off abx Qualifiers: Sepsis type: sepsis due to unspecified organism Qualified Code(s): A41.9 - Sepsis, unspecified organism (2) Hyperglycemia Current Visit: Yes Status: Acute Assessment and plan: Reports poor compliance recently, likely aggravated by recent steroid use not in DKA or HHS Received IV insulin 6U in the ED, on glimiperide only at home will start basal insulin of 18U now, keep on moderate dose sliding scale and transition to basal + prandial tomorrow d/ce steroid as above (3) Acute on chronic renal failure Current Visit: Yes Status: Acute Assessment and plan: Likely due to the above, complicated by ongoing use of Lasix, lisinopril, losartan (unsure why he is on both OTTONIEL-i and ARB) d/c meds Cr improving on IVF, continue Qualifiers: Acute renal failure type: unspecified Chronic kidney disease stage: stage 3 (moderate) Qualified Code(s): N17.9 - Acute kidney failure, unspecified; N18.3 - Chronic kidney disease, stage 3 (moderate) (4) Hypertension Current Visit: Yes Status: Chronic Assessment and plan: On multiple medications at home, currently borderline low. Hold all home meds. Qualifiers: Hypertension type: essential hypertension Qualified Code(s): I10 - Essential (primary) hypertension (5) Afib Current Visit: No Status: Chronic Assessment and plan: On beta rodríguez for rate control and warfarin for anti-coagulation. hold off on bb as above Check PT/INR and defer Coumadin dosing to pharmacy. Qualifiers: Atrial fibrillation type: chronic Qualified Code(s): I48.2 - Chronic atrial fibrillation (6) Hyponatremia Current Visit: Yes Status: Acute Assessment and plan: Likely due to hyperglycemia. Treatment with insulin above IV fluid and monitor (7) Transaminitis Current Visit: Yes Status: Acute Assessment and plan: Known history of HCC/Cirrhosis, patient has been on pravastatin as an outpatient. Continue pravastatin -> hold off if worsens monitor Plt count (8) Thrombocytopenia Current Visit: No Status: Chronic Assessment and plan: No evidence of bleeding, known history of cirrhosis. Monitor (9) COPD (chronic obstructive pulmonary disease) Current Visit: No Status: Chronic Qualifiers: COPD type: emphysema Emphysema type: panlobular Qualified 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 (10) DANNIELLE (obstructive sleep apnea) Current Visit: No Status: Chronic (11) DVT prophylaxis Current Visit: No Status: Acute Assessment and plan: Resume home warfarin once PT/INR is completed - Time Spent With Patient Total time spent is greater than 50% in coordination of care (as documented) at patient's floor/unit and/or counseling patient:
[2018-04-18] MEDS ORDERED: Ondansetron 4 MG/2 ML VIAL IVP PRN (17:04)
[2018-04-18] MEDS ORDERED: Budesonide/Formoterol 160/4.5 1 PUFF INH IH PRN (22:00)
[2018-04-19 06:20] LABS: Basophils % 0.3 %; Eosinophils # 0.1 K/mcL (0.0-0.6); Eosinophils % 0.5 %; Hematocrit 34.4 % (37.5-50.1); Hemoglobin 11.6 g/dL (12.9-16.9); Immature Granulocytes % 0.5 % (0-4); Lymphocytes # 0.8 K/mcL (0.6-4.6); Lymphocytes % 7.1 %; Mean Corpuscular HGB Conc 33.7 g/dL (31.6-35.5); Mean Corpuscular Hemoglobin 30.6 pg (28.0-33.3); Mean Corpuscular Volume 90.8 fL (83.0-100.0); Mean Platelet Volume 10.7 fL (9.4-12.4); Monocytes # 0.8 K/mcL (0.0-1.3); Monocytes % 7.5 %; Neutrophils # 9.3 K/mcL (1.6-8.9); Platelet Count 107 K/mcL (140-400); Red Blood Count 3.79 M/mcL (4.19-5.50); Red Cell Distribution Width 14.7 % (11.5-14.5); Segmented Neutrophils % 84.1 %
[2018-04-19 06:25] LABS: INR 2.1; Prothrombin Time 23.8 Seconds (9.4-12.1)
[2018-04-19 06:44] LABS: Alanine Aminotransferase 71 Units/L (7-52); Albumin 3.1 g/dL (3.5-5.7); Albumin/Globulin Ratio 0.9 (1.1-2.2); Alkaline Phosphatase 159 Units/L (34-104); Aspartate Amino Transferase 61 Units/L (13-39); BUN/Creatinine Ratio 27 (6-26); Bilirubin,Total 2.7 mg/dL (0.3-1.0); Blood Urea Nitrogen 34 mg/dL (8-23); Calcium 8.7 mg/dL (8.6-10.3); Carbon Dioxide 20 mEq/L (23-29); Chloride 104 mEq/L (98-107); Chol/HDL Ratio 2.7 (0-4.9); Cholesterol 86 mg/dL (< 200); Globulin 3.5 g/dL (2.4-3.5); Glucose 217 mg/dL (70-105); HDL Cholesterol 32 mg/dL (40-59); LDL Cholesterol,Calculated 38 mg/dL (0-99); Magnesium 1.9 mg/dL (1.6-2.6); Osmolality,Calculated 288 (280-300); Potassium 4.8 mEq/L (3.5-5.1); Sodium 132 mEq/L (136-145); Total Protein 6.6 g/dL (6.4-8.9); Triglycerides 81 mg/dL (< 150); eGFR For Non-African Americans 56 (> 60)
--- NOTE | 2018-04-19 08:37 | Electrocardiograph Report ---
[address] [address] Test Date: 2018-04-18 Pat Name: Marcos Lora Department: EXAM4 Room: 2A41 Gender: M Fire Manager: : 1940 Requested By: Paul Thomas Order Number: [id number] Reading MD: Dulce Maria Marte Measurements Intervals [place] Rate: 102 P: [place]: QRS: 38 QRSD: 92 T: 176 QT: 319 QTc: 416 Interpretive Statements Atrial fibrillation Abnormal T, consider ischemia, lateral leads Electronically Signed On 04-19-2018 8:35:47 EDT by Dulce Maria Marte
[2018-04-19] MEDS: Insulin LISPRO 300 UNITS/3 ML VIAL SQ SCH ×7 (10:17→21:09)
[2018-04-19] MEDS: Aspirin Enteric Coated 81 MG Tablet PO SCH (10:18)
[2018-04-19] MEDS: Cholecalciferol (D-3) 1,000 UNIT TABLET PO SCH (10:18)
[2018-04-19] MEDS: Metoprolol 100 MG TABLET PO SCH ×2 (10:18→21:08)
[2018-04-19] MEDS: Insulin DETEMIR 100 UNIT/ML X5UNITS SQ SCH (10:44)
--- NOTE | 2018-04-19 14:24 | Internal Med Progress Note ---
Hospitalist Progress Note - Encounter Date of Encounter: 04/19/18 Time of Encounter: 10:10 - Subjective Interval History: Patient feels better and stronger with improving glycemic control. However, patient had low-grade temperature of 100.1 at 8:20 PM yesterday. No focal complaints, denies chest pain, cough, sputum production, abdominal pain, diarrhea, or dysuria. - Exam Vitals: Temp Pulse Resp BP Pulse Ox 97.3 F L 89 18 114/77 97 04/19/18 10:39 04/19/18 10:39 04/19/18 10:39 04/19/18 10:39 04/19/18 10:39 Exam: General: Alert and oriented, not in acute distress. HEENT:EOM, pupils equal, round and reactive. No jaundice Cardiovascular:Normal S1 & S2, irregular rhythm, normal rate Lungs: clear to auscultation, no wheezes/rales Abdomen:Soft, non-tender, no rigidity. Extremities:No deformity or swelling Neurological:Normal cognition and motor skills. Non-focal Skin:Normal color, no rash, no lesions. - Assessment and Plan (1) Sepsis Current Visit: Yes Status: Suspected Assessment and Plan: Initially concern for sepsis with fever and leukocytosis satisfying 2/4 SIRS criteria However, patient has no identifiable foci of infection. UA unremarkable, CXR without acute processes. He does not complain of abdominal pain, jaundice, change in stool color. Benign abdo exam. Low suspicion for hepatobiliary/GI source. Leukocytosis may be due to the high-dose steroids that he has been receiving. Not wheezing currently and had already received 7 day course -> d/c steroid Slightly better WBC count, 11 today respiratory viral panel -ve blood c/s NGTD if he has another episode of fever, will scan chest to see if he has unresolved PNA if afebrile > 24 hours, will discharge tomorrow (2) Hyperglycemia Current Visit: Yes Status: Acute Assessment and Plan: Reports poor compliance recently, likely aggravated by recent steroid use not in DKA or HHS improved on current regime of insulin, basal insulin of 18U and moderate dose sliding scale. Add 4U lispro TIDWM d/ce steroid as above (3) Acute on chronic renal failure Current Visit: Yes Status: Acute Assessment and Plan: Likely due to the above, complicated by ongoing use of Lasix, lisinopril, losartan (unsure why he is on both OTTONIEL-i and ARB) d/c meds resolving (4) Hypertension Current Visit: Yes Status: Chronic Assessment and Plan: On multiple medications at home, currently borderline low. Hold all home meds except bb as he is becoming tachycardic (5) Afib Current Visit: No Status: Chronic Assessment and Plan: On beta rodríguez for rate control and warfarin for anti-coagulation. restart bb Check PT/INR and defer Coumadin dosing to pharmacy. (6) Hyponatremia Current Visit: Yes Status: Acute Assessment and Plan: Likely due to hyperglycemia. Treatment with insulin above improved with IVF encourage oral intake, continue to monitor (7) Transaminitis Current Visit: Yes Status: Acute Assessment and Plan: Known history of HCC/Cirrhosis, patient has been on pravastatin as an outpatient. hold pravastatin monitor Plt count (8) Thrombocytopenia Current Visit: No Status: Chronic Assessment and Plan: No evidence of bleeding, known history of cirrhosis. Monitor (9) COPD (chronic obstructive pulmonary disease) Current Visit: No Status: Chronic Assessment and Plan: Not in exacerbation, resume home inhalers and PRN albuterol (10) DANNIELLE (obstructive sleep apnea) Current Visit: No Status: Chronic Assessment and Plan: CPAP at night (11) DVT prophylaxis Current Visit: No Status: Acute Assessment and Plan: Resume home warfarin - Time Spent with Patient Total time spent is greater than 50% in coordination of care (as documented) at patient's floor/unit and/or counseling patient: Plan of Care Discussed with: patient Internal Medicine: Result - Labs CBC & Chem 7: 04/19/18 05:40 04/19/18 05:40 Labs: Short CBC 04/19/18 Range/Units 05:40 WBC 11.0 (4.3-11.1) K/mcL Hgb 11.6 L (12.9-16.9) g/dL Hct 34.4 L (37.5-50.1) % Plt Count 107 L (140-400) K/mcL Neutrophils # 9.3 H (1.6-8.9) K/mcL BMP 04/19/18 05:40 Sodium 132 L Potassium 4.8 Chloride 104 Carbon Dioxide 20 L BUN 34 H Creatinine 1.26 Glucose 217 H Calcium 8.7 Liver Function 04/19/18 Range/Units 05:40 Total Bilirubin 2.7 H (0.3-1.0) mg/dL AST 61 H (13-39) Units/L ALT 71 H (7-52) Units/L Alkaline Phosphatase 159 H (34-104) Units/L Albumin 3.1 L (3.5-5.7) g/dL - ABG Interpretation ABG results: PT/INR, D-dimer PT 23.8 Seconds (9.4-12.1) H 04/19/18 05:40 - VTE Documentation of Mechanical Device: Intermittent pneumatic compression device Consult Discharge Plan - Plan Referrals: Dulce Maria Cabral MD [Primary Care Provider] - (1) Sepsis Qualifiers: Sepsis type: sepsis due to unspecified organism Qualified Code(s): A41.9 - Sepsis, unspecified organism (3) Acute on chronic renal failure Qualifiers: Acute renal failure type: unspecified Chronic kidney disease stage: stage 3 ( moderate) Qualified Code(s): N17.9 - Acute kidney failure, unspecified; N18.3 - Chronic kidney disease, stage 3 (moderate) (4) Hypertension Qualifiers: Hypertension type: essential hypertension Qualified Code(s): I10 - Essential (primary) hypertension (5) Afib Qualifiers: Atrial fibrillation type: chronic Qualified Code(s): I48.2 - Chronic atrial fibrillation (9) COPD (chronic obstructive pulmonary disease) Qualifiers: COPD type: emphysema Emphysema type: panlobular Qualified 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
[2018-04-19] MEDS ORDERED: *HR* Warfarin 2.5 MG TABLET PO SCH ×2 (14:30→14:45)
[2018-04-19] MEDS ORDERED: *HR* Warfarin 3 MG TABLET PO SCH (14:30)
[2018-04-19] MEDS ORDERED: Warfarin perPT PO PRN (18:00)
[2018-04-19] MEDS ORDERED: *HR* Warfarin 3 MG TABLET PO ONE (18:00)
[2018-04-19] MEDS: Budesonide/Formoterol 160/4.5 1 PUFF INH IH SCH (21:39)
[2018-04-20 06:33] LABS: Basophils % 0.2 %; Eosinophils # 0.1 K/mcL (0.0-0.6); Eosinophils % 0.9 %; Hematocrit 34.4 % (37.5-50.1); Hemoglobin 11.2 g/dL (12.9-16.9); Immature Granulocytes % 0.4 % (0-4); Lymphocytes # 0.5 K/mcL (0.6-4.6); Lymphocytes % 5.4 %; Mean Corpuscular HGB Conc 32.6 g/dL (31.6-35.5); Mean Corpuscular Volume 92.2 fL (83.0-100.0); Mean Platelet Volume 11.3 fL (9.4-12.4); Monocytes # 0.7 K/mcL (0.0-1.3); Monocytes % 7.3 %; Neutrophils # 8.5 K/mcL (1.6-8.9); Platelet Count 109 K/mcL (140-400); Red Blood Count 3.73 M/mcL (4.19-5.50); Red Cell Distribution Width 14.7 % (11.5-14.5); Segmented Neutrophils % 85.8 %
[2018-04-20 06:38] LABS: INR 1.7; Prothrombin Time 19.3 Seconds (9.4-12.1)
[2018-04-20 06:55] LABS: BUN/Creatinine Ratio 31 (6-26); Blood Urea Nitrogen 41 mg/dL (8-23); Calcium 8.4 mg/dL (8.6-10.3); Carbon Dioxide 17 mEq/L (23-29); Chloride 103 mEq/L (98-107); Glucose 173 mg/dL (70-105); Osmolality,Calculated 282 (280-300); Potassium 5.4 mEq/L (3.5-5.1); Sodium 129 mEq/L (136-145); eGFR For Non-African Americans 52 (> 60)
[2018-04-20] MEDS ORDERED: 0.9 % Sodium Chloride 1,000 ML IVC SCH (07:30)
[2018-04-20] MEDS: Cholecalciferol (D-3) 1,000 UNIT TABLET PO SCH (08:08)
[2018-04-20] MEDS: Metoprolol 100 MG TABLET PO SCH (08:08)
[2018-04-20] MEDS: Aspirin Enteric Coated 81 MG Tablet PO SCH (08:08)
[2018-04-20] MEDS: Insulin LISPRO 300 UNITS/3 ML VIAL SQ SCH ×4 (08:15→11:57)
[2018-04-20] MEDS: Insulin DETEMIR 100 UNIT/ML X5UNITS SQ SCH (09:57)
--- NOTE | 2018-04-20 10:33 | Discharge Summary ---
- NOTES TO OUTPATIENT PROVIDER Notes to Outpatient Provider: Patient was initially admitted for the concern of sepsis due to his fever of 101.5 and leukocytosis. No source of bacterial infection was identified but he was severely hyperglycemic with pseudohyponatremia and acute on chronic renal failure in the setting of recent steroid use. Improved IV insulin and IV fluid and did not have fever for > 36 hours before discharge. His norvasc, lisinopril/losartan (?medication list states that he is on both), aldactone, and lasix will be held on discharge and he will need BMP with PCP follow up. He is discharged back on his home DM meds ( since he is off steroid) but also given a script for levemir in case his blood glucose remains poorly controlled. Orders not resulted at time of discharge: Pending orders 04/21/18 04:00 PT/INR [Prothrombin Time INR] [COAG] AM 0400 04/22/18 04:00 PT/INR [Prothrombin Time INR] [COAG] AM 0400 Date of Encounter: 04/20/18 Time of Encounter: 08:45 - Discharge Diagnosis (1) Sepsis Priority: Secondary Status: Suspected Qualifiers: Sepsis type: sepsis due to unspecified organism Qualified Code(s): A41.9 - Sepsis, unspecified organism (2) Hyperglycemia Priority: Primary Status: Acute (3) Acute on chronic renal failure Priority: Secondary Status: Acute Qualifiers: Acute renal failure type: unspecified Chronic kidney disease stage: stage 3 (moderate) Qualified Code(s): N17.9 - Acute kidney failure, unspecified; N18.3 - Chronic kidney disease, stage 3 (moderate) (4) Hypertension Priority: Secondary Status: Chronic Qualifiers: Hypertension type: essential hypertension Qualified Code(s): I10 - Essential (primary) hypertension (5) Afib Priority: Secondary Status: Chronic Qualifiers: Atrial fibrillation type: chronic Qualified Code(s): I48.2 - Chronic atrial fibrillation (6) Hyponatremia Priority: Secondary Status: Acute (7) Transaminitis Priority: Secondary Status: Acute (8) Thrombocytopenia Priority: Secondary Status: Chronic (9) COPD (chronic obstructive pulmonary disease) Priority: Secondary Status: Chronic Qualifiers: COPD type: emphysema Emphysema type: panlobular Qualified 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 (10) DANNIELLE (obstructive sleep apnea) Priority: Secondary Status: Chronic (11) DVT prophylaxis Priority: Secondary Status: Acute Hospital course: Mr. Lora is a 77 year old male with past medical history of atrial fibrillation , diabetes, HCC with ?pleural mets s/p Y-90, hypertension, CKD, COPD was admitted for the concern of sepsis due to his fever of 101.5 and leukocytosis. No source of bacterial infection was identified but he was severely hyperglycemic with pseudohyponatremia and acute on chronic renal failure in the setting of recent steroid use and ongoing lasix usage. Improved IV insulin and IV fluid and did not have fever for > 36 hours before discharge. His norvasc, lisinopril/losartan (?medication list states that he is on both), aldactone, and lasix will be held on discharge and he will need BMP with PCP follow up. He is discharged back on his home DM meds (since he is off steroid) but also given a script for levemir in case his blood glucose remains poorly controlled. Discharge discussed with: patient, other (Pharmacist) - Time Spent with Patient Total time spent providing and/or coordinating discharge services: Greater than 30 minutes - Discharge Medications Prescriptions: Insulin DETEMIR [Levemir Flextouch] 18 unit SQ HS #1 insuln.pen Home Medications: Aspirin Enteric Coated [Aspirin EC] 81 mg PO DAILY 03/26/15 [History] Pravastatin Sodium [Pravachol] 20 mg PO QPM 03/26/15 [History] Albuterol Sulfate [Proair Respiclick] 2 puff IH Q4HR PRN 12/24/16 [History] Budesonide/Formoterol 160/4.5 [Symbicort 160/4.5] 2 puff IH BIDR PRN 12/24/16 [ History] Cholecalciferol (D-3) [Vitamin D] 1,000 unit PO DAILY 04/18/18 [History] Gemfibrozil [Lopid] 600 mg PO BID 04/18/18 [History] Glimepiride [Amaryl] 1 mg PO DAILY 04/18/18 [History] Isosorbide MONOnitrate (24 HR) [Imdur] 60 mg PO DAILY 04/18/18 [History] Metoprolol [Lopressor] 150 mg PO BID 04/18/18 [History] Montelukast [Singulair] 10 mg PO HS 04/18/18 [History] Pantoprazole Sodium 40 mg PO DAILY PRN 04/18/18 [History] Warfarin [Coumadin] 2.5 mg PO AD 04/18/18 [History] Warfarin [Coumadin] 3 mg PO AD 04/18/18 [History] Insulin DETEMIR [Levemir Flextouch] 18 unit SQ HS #1 insuln.pen 04/20/18 [Rx] Allergies/Adverse Reactions: 3 Allergy/AdvReac Type Severity Reaction Status Date / Time clonidine AdvReac Dry Mucus Verified 04/18/18 08:30 Membranes Iodinated Contrast- Oral and AdvReac Flushing Verified 04/18/18 08:30 IV Dye Date of admission: 04/18/18 05:04 Primary care physician: Dulce Maria Cabral MD Consults: 04/18/18 05:57 Consult to Principal Administrative Clerk [CONS] Routine Reason for SW Consult: Patient needs assistance getting a new mask for his CPAP. Currently uses [facility]. 04/18/18 13:11 Consult to Occupational Therapy [CONS] Routine Comment: Evaluate, develop and implement POC Reason for Consult: deconditioning due to acute illness Does patient have active BEDREST order?: No Is patient medically & hemodynamically stable?: Yes Consult to Physical Therapy [CONS] Routine Comment: Evaluate, develop and implement POC Reason for Consult: deconditioning due to acute illness Does patient have active BEDREST order?: No Is patient medically & hemodynamically stable?: Yes - Constitutional Vitals: Temp Pulse Resp BP Pulse Ox 99.5 F 88 17 115/74 97 04/20/18 07:27 04/20/18 07:27 04/20/18 07:27 04/20/18 08:06 04/20/18 08:35 Exam: General: Alert and oriented, not in acute distress. HEENT:EOM, pupils equal, round and reactive. No jaundice Cardiovascular:Normal S1 & S2, irregular rhythm, normal rate Lungs: clear to auscultation, no wheezes/rales Abdomen:Soft, non-tender, no rigidity. Extremities:No deformity or swelling Neurological:Normal cognition and motor skills. Non-focal Skin:Normal color, no rash, no lesions. - Patient Status Disposition: Home, Self-Care Condition: Fair Overall status at discharge: patient is progressing back to baseline - Discharge Instructions Instructions: Chronic Hypertension (DC), Atrial Fibrillation (DC) Follow Up With: Dulce Maria Cabral MD [Primary Care Provider] - - Diet and Activity Activity: resume usual activities as tolerated Diet: diabetic diet - VTE Documentation of Mechanical Device: Intermittent pneumatic compression device
[2018-04-20 11:10] VITALS: BP 98/67
[2018-04-20] MEDS: Budesonide/Formoterol 160/4.5 1 PUFF INH IH SCH (11:19)
[2018-04-20] MEDS ORDERED: *HR* Warfarin 3 MG TABLET PO ONE (18:00)
== END 2018-04-20 16:00 | disposition home or self-care (01) ==
LOC: EMEROOARM 23:57 → 2ANU 23:57 → SUATTDRO 04-18 05:04 → 2ANU 04-18 05:34
PROVIDERS: ADMIT Pediatrics; ATTEND Internal Medicine

== ENCOUNTER 2018-10-03 17:00 | Inpatient (IN) ==
--- NOTE | 2018-10-03 17:55 | Emergency Department Note ---
Disposition Clinical Impression: Elevated troponin, Hypokalemia Hypertension Qualifiers: Hypertension type: unspecified Qualified Code(s): I10 - Essential (primary) hyp ertension Disposition: Admitted As Inpatient Condition: Fair General Adult HPI - General Chief complaint: ED General Medical Stated complaint: Hypertension Time Seen by Provider: 10/03/18 17:22 Source: patient Mode of arrival: ambulatory Limitations: no limitations Nursing Notes Reviewed: Yes Vital Signs Reviewed: Yes - History of Present Illness HPI Narrative: 78-year-old male with significant past medical history of insulin-dependent diabetes and hypertension presenting to the emergency department chief complaint of elevated blood pressure and generalized weakness. Patient states for the past week his blood pressure has continued to remain elevated. Called his primary care physician this evening and they were concerned due to how high the systolic and diastolic members were. They state the blood pressure was 180/100 at home. Primary care physician told him to come in for further evaluation. Patient was recently admitted a few months ago and was taken off 3-4 of his blood pressure medications and his blood pressure has started to become uncontrollable since then. Approximately 1 week ago he was restarted on his lisinopril but has not seemed to affect his blood pressure greatly. Patient denies any chest pain but does disclose shortness of breath. Denies any abdominal pain, headache or dizziness. Pain Scale: 0 - Related Data Home Medications Medication Instructions Recorded Confirmed Aspirin Enteric Coated [Aspirin EC] 81 mg PO DAILY 03/26/15 09/04/18 Pravastatin Sodium [Pravachol] 20 mg PO QPM 03/26/15 09/04/18 Albuterol Sulfate [Proair 2 puff IH Q4HR PRN 12/24/16 09/04/18 Respiclick] Budesonide/Formoterol 160/4.5 2 puff IH BIDR PRN 12/24/16 09/04/18 [Symbicort 160/4.5] Cholecalciferol (D-3) [Vitamin D] 1,000 unit PO DAILY 04/18/18 09/04/18 Gemfibrozil [Lopid] 600 mg PO BID 04/18/18 09/04/18 Glimepiride [Amaryl] 1 mg PO DAILY 04/18/18 09/04/18 Isosorbide MONOnitrate (24 HR) 60 mg PO DAILY 04/18/18 09/04/18 [Imdur] Metoprolol [Lopressor] 150 mg PO BID 04/18/18 09/04/18 Montelukast [Singulair] 10 mg PO HS 04/18/18 09/04/18 Warfarin [Coumadin] 2.5 mg PO AD 04/18/18 09/04/18 Warfarin [Coumadin] 3 mg PO AD 04/18/18 09/04/18 Insulin DETEMIR [Levemir Flextouch] 6 unit SQ HS 09/04/18 09/04/18 Previous Rx's Medication Instructions Recorded Pantoprazole Sodium [Protonix] 40 mg PO DAILY #30 tablet. 09/01/18 Pantoprazole Sodium 40 mg PO DAILY #30 tablet. 10/02/18 Allergies Allergy/AdvReac Type Severity Reaction Status Date / Time clonidine AdvReac Dry Mucus Verified 09/04/18 11:39 Membranes Iodinated Contrast- Oral and AdvReac Flushing Verified 09/04/18 11:39 IV Dye All systems ED: reviewed and negative except as stated. Constitutional: Reports: weakness. Denies: fever Eyes: Reports: as per HPI ENT ED: Reports: as per HPI Cardiovascular: Denies: chest pain Respiratory: Reports: dyspnea Gastrointestinal: Denies: abdominal pain Genitourinary: Reports: as per HPI Musculoskeletal: Reports: as per HPI Integumentary: Reports: as per HPI Neurological: Reports: weakness. Denies: numbness, paresthesias Psychiatric: Reports: as per HPI Endocrine: Reports: as per HPI Hematological/Lymphatic: Reports: as per HPI Allergic/Immunologic: Reports: as per HPI Past Medical History - Past Medical History Attestation: Yes The following information was validated with the patient. Medical history: Reports: atrial fibrillation, cancer, CHF, COPD, diabetes, GERD, hyperlipidemia, hypertension, malignancy, renal disease Psychiatric history: Reports: depression - Social History Smoking Status: Former smoker Smokeless Tobacco Status: No Alcohol use: Reports: rarely Drug use: Reports: none Physical Exam - General Limitations: no limitations General appearance: alert, in no apparent distress - Head Head exam: atraumatic, normocephalic, normal inspection - Eye Eye exam: Absent: scleral icterus - ENT ENT exam: mucous membranes moist - Neck Neck exam: Present: full ROM - Chest Chest inspection: Present: symmetric chest wall rise - Respiratory Respiratory exam: Present: normal lung sounds bilaterally. Absent: respiratory distress, wheezes - Cardiovascular Cardiovascular exam: Present: normal rhythm, irregular rhythm - Abdominal Exam Abdominal exam: Present: soft, Non-Tender. Absent: distention, guarding, rebound - Extremities Exam Extremities exam: Present: full ROM - Neurological Exam Neurological exam: Present: alert, oriented X3 - Psychiatric Psychiatric exam: Present: normal affect, normal mood - Skin Skin exam: Present: warm Course Course Narrative: 78-year-old male presenting to the emergency department chief complaint of weakness and elevated blood pressure. Sent over by nephrology with concerns for his hypertension. Patient states no chest pain, abdominal pain or other systemic symptoms other than weakness. At this time will obtain basic laboratory analysis including H&H, BMP, troponin, EKG. Disposition pending. - Reevaluation(s) Reevaluation #1: Patient's lab shows stable anemia, hypokalemia and elevated troponin at 0.04. We will provide patient with potassium repletion and plan to provide the patient with 5 mg of Lopressor for blood pressure control. Due to elevated troponin and hypertension will plan to admit the patient for further evaluation. Patient remains alert and oriented 3 and hemodynamically stable. Patient agrees with this plan. I spoke with the hospitalist [employer] laborer Dr. Ashby who agrees to accept the patient. Goal systolic blood pressure 190 or less before going to the floor. Vital Signs Temperature 98.0 F 10/03/18 17:11 Pulse Rate 66 10/03/18 17:11 Respiratory Rate 17 10/03/18 17:11 Blood Pressure 195/100 10/03/18 17:11 O2 Sat by Pulse Oximetry 97 10/03/18 17:11 Temperature 98.0 F 10/03/18 17:31 Pulse Rate 74 10/03/18 19:48 Respiratory Rate 14 10/03/18 19:48 Blood Pressure 211/98 10/03/18 19:48 O2 Sat by Pulse Oximetry 94 10/03/18 19:48 Oxygen Delivery Oxygen Delivery Room Air Medical Decision Making - Lab Data Result diagrams: 10/03/18 17:44 10/03/18 17:44 Lab Results 10/03/18 10/03/18 10/03/18 Range/Units 17:44 17:44 18:23 Hgb 12.0 L (12.9-16.9) g/dL Hct 36.2 L (37.5-50.1) % Sodium 145 (136-145) mEq/L Potassium 3.0 L (3.5-5.1) mEq/L Chloride 107 (98-107) mEq/L Carbon Dioxide 29 (23-29) mEq/L BUN 24 H (8-23) mg/dL Creatinine 1.04 (0.70-1.30) mg/dL Est GFR ( Amer) > 60 (> 60) Est GFR (Non-Af Amer) > 60 (> 60) BUN/Creatinine Ratio 23 (6-26) Glucose 96 (70-105) mg/dL Calculated Osmolality 304 H (280-300) Calcium 9.4 (8.6-10.3) mg/dL Troponin I 0.04 H* (< 0.04) ng/mL Urine Color Yellow (Yellow) Urine Clarity Clear (Clear) Urine pH 7.0 (5.0-8.0) pH Units Ur Specific [place] 1.015 (1.010-1.025) Urine Protein >=300 H (Neg-Trace) mg/dL Urine Glucose (UA) Normal (Normal) mg/dL Urine Ketones Negative (Negative) mg/dL Urine Blood Trace H (Negative) Urine Nitrite Negative (Negative) Urine Bilirubin Negative (Negative) Urine Urobilinogen Normal (Normal) mg/dL Ur Leukocyte Esterase Negative (Negative) Urine Microscopic RBC 3-5 H (0-3) per hpf Urine Microscopic WBC 0-3 (0-3) per hpf Ur Squamous Epith Cells Moderate H (None-Few) per lpf Urine Bacteria None Seen (None-Few) per hpf Hyaline Casts None Seen (None-Few) per lpf Ur Culture Indicated? NO (NO) - EKG Data EKG #1 EKG attestation: Yes I reviewed and interpreted this EKG. EKG results narrative: Atrial fibrillation. 74 beats minute. QRS 100, QTC 513. No sign of acute ST segment elevation or ischemia
[2018-10-03 18:01] LABS: Hematocrit 36.2 % (37.5-50.1)
[2018-10-03 18:18] LABS: Blood Urea Nitrogen 24 mg/dL (8-23); Calcium 9.4 mg/dL (8.6-10.3); Carbon Dioxide 29 mEq/L (23-29); Chloride 107 mEq/L (98-107); Glucose 96 mg/dL (70-105); Osmolality,Calculated 304 (280-300); Sodium 145 mEq/L (136-145)
[2018-10-03 18:22] LABS: Troponin I 0.04 ng/mL (< 0.04)
[2018-10-03 18:48] LABS: Bilirubin,Urine Negative (Negative); Blood,Urine Trace (Negative); Clarity,Urine Clear (Clear); Color,Urine Yellow (Yellow); Glucose,Urine (UA) Normal (Normal); Ketones,Urine Negative (Negative); Leukocyte Esterase,Urine Negative (Negative); Nitrite,Urine Negative (Negative); Protein,Urine >=300 mg/dL (Neg-Trace); Specific Gravity,Urine 1.015 (1.010-1.025); Urobilinogen,Urine Normal (Normal)
[2018-10-03 18:50] LABS: Bacteria,Urine None Seen per hpf (None-Few); Hyaline Casts,Urine None Seen per lpf (None-Few); Squamous Epithelial Cell,Urine Moderate per lpf (None-Few); WBC,Urine 0-3 per hpf (0-3)
[2018-10-03] MEDS ORDERED: *HR* Metoprolol 5 MG/5 ML VIAL IVP ONE ×2 (19:02→19:52)
[2018-10-03 19:04] LABS: BUN/Creatinine Ratio 23 (6-26); eGFR For Non-African Americans > 60 (> 60)
[2018-10-03] MEDS ORDERED: Potassium Chloride Elixir 20 MEQ/15 ML UDC PO ONE (19:08)
--- NOTE | 2018-10-03 19:21 | Emergency Department Note ---
Disposition Clinical Impression: Elevated troponin, Hypokalemia Hypertension Qualifiers: Hypertension type: unspecified Qualified Code(s): I10 - Essential (primary) hyp ertension Disposition: Admitted As Inpatient Condition: Fair General Adult HPI - General Chief complaint: ED General Medical Stated complaint: Hypertension Time Seen by Provider: 10/03/18 17:22 Source: patient Mode of arrival: ambulatory Limitations: no limitations - History of Present Illness Pain Scale: 0 - Related Data Home Medications Medication Instructions Recorded Confirmed Aspirin Enteric Coated [Aspirin EC] 81 mg PO DAILY 03/26/15 10/04/18 Pravastatin Sodium [Pravachol] 20 mg PO QPM 03/26/15 10/04/18 Albuterol Sulfate [Proair 2 puff IH Q4HR PRN 12/24/16 10/04/18 Respiclick] Budesonide/Formoterol 160/4.5 2 puff IH BID 12/24/16 10/04/18 [Symbicort 160/4.5] Cholecalciferol (D-3) [Vitamin D] 1,000 unit PO DAILY 04/18/18 10/04/18 Gemfibrozil [Lopid] 600 mg PO BID 04/18/18 10/04/18 Glimepiride [Amaryl] 1 mg PO DAILY 04/18/18 10/04/18 Metoprolol [Lopressor] 150 mg PO BID 04/18/18 10/04/18 Montelukast [Singulair] 10 mg PO HS 04/18/18 10/04/18 Warfarin [Coumadin] 2.5 mg PO Q48H 04/18/18 10/04/18 Warfarin [Coumadin] 3 mg PO Q48H 04/18/18 10/04/18 Insulin DETEMIR [Levemir Flextouch] 7 unit SQ HS 09/04/18 10/04/18 Fexofenadine HCl 180 mg PO DAILY PRN 10/04/18 10/04/18 Insulin LISPRO [Humalog Kwikpen 0 - 2 unit SQ QPM 10/04/18 10/04/18 U-100] Lisinopril [Zestril] 20 mg PO QAM 10/04/18 10/04/18 Potassium Bicarbonate/Cit AC 10 meq PO QAM 10/04/18 10/04/18 [Effer-K 10 Meq Tablet Eff] Previous Rx's Medication Instructions Recorded Pantoprazole Sodium 40 mg PO DAILY #30 tablet. 10/02/18 Furosemide [Lasix] 40 mg PO DAILY tablet 10/09/18 Isosorbide MONOnitrate (24 HR) 60 mg PO DAILY #30 tab.er.24h 10/09/18 [Imdur] Lisinopril [Zestril] 20 mg PO BID #30 tablet 10/09/18 aMILoride [Midamor] 5 mg PO DAILY #30 tablet 10/09/18 amLODIPine [Norvasc] 5 mg PO DAILY #30 tablet 10/09/18 Allergies Allergy/AdvReac Type Severity Reaction Status Date / Time clonidine AdvReac Dry Mucus Verified 09/04/18 11:39 Membranes Iodinated Contrast- Oral and AdvReac Flushing Verified 09/04/18 11:39 IV Dye Past Medical History - Past Medical History Medical history: Reports: atrial fibrillation, cancer, CHF, COPD, diabetes, GERD, hyperlipidemia, hypertension, malignancy, renal disease Psychiatric history: Reports: depression - Social History Smoking Status: Former smoker Smokeless Tobacco Status: No Alcohol use: Reports: rarely Drug use: Reports: none Physical Exam - General Limitations: no limitations General appearance: alert, in no apparent distress Course Vital Signs Temperature 98.0 F 10/03/18 17:11 Pulse Rate 66 10/03/18 17:11 Respiratory Rate 17 10/03/18 17:11 Blood Pressure 195/100 10/03/18 17:11 O2 Sat by Pulse Oximetry 97 10/03/18 17:11 Temperature 98.2 F 10/11/18 18:55 Pulse Rate 66 10/11/18 18:55 Respiratory Rate 16 10/11/18 20:41 Blood Pressure 146/71 10/11/18 18:55 O2 Sat by Pulse Oximetry 94 10/11/18 20:41 Oxygen Delivery Oxygen Delivery Room Air Medical Decision Making - Lab Data Result diagrams: 10/11/18 04:14 10/11/18 04:14 Lab Results 10/03/18 10/03/18 10/03/18 Range/Units 17:44 17:44 18:23 WBC (4.3-11.1) K/mcL RBC (4.19-5.50) M/mcL Hgb 12.0 L (12.9-16.9) g/dL Hct 36.2 L (37.5-50.1) % MCV (83.0-100.0) fL MCH (28.0-33.3) pg MCHC (31.6-35.5) g/dL RDW (11.5-14.5) % Plt Count (140-400) K/mcL MPV (9.4-12.4) fL Immature Gran % (0-4) % Seg Neutrophils % % Lymphocytes % % Monocytes % % Eosinophils % % Basophils % % Neutrophils # (1.6-8.9) K/mcL Lymphocytes # (0.6-4.6) K/mcL Monocytes # (0.0-1.3) K/mcL Eosinophils # (0.0-0.6) K/mcL Basophils # (0.0-0.2) K/mcL PT (9.4-12.1) Seconds INR Sodium 145 (136-145) mEq/L Potassium 3.0 L (3.5-5.1) mEq/L Chloride 107 (98-107) mEq/L Carbon Dioxide 29 (23-29) mEq/L BUN 24 H (8-23) mg/dL Creatinine 1.04 (0.70-1.30) mg/dL Est GFR ( Amer) > 60 (> 60) Est GFR (Non-Af Amer) > 60 (> 60) BUN/Creatinine Ratio 23 (6-26) Glucose 96 (70-105) mg/dL POC Glucose (70-99) mg/dL Calculated Osmolality 304 H (280-300) Calcium 9.4 (8.6-10.3) mg/dL Magnesium (1.6-2.6) mg/dL Total Bilirubin (0.3-1.0) mg/dL AST (13-39) Units/L ALT (7-52) Units/L Alkaline Phosphatase (34-104) Units/L Troponin I 0.04 H* (< 0.04) ng/mL Serum Total Protein (6.4-8.9) g/dL Albumin (3.5-5.7) g/dL Globulin (2.4-3.5) g/dL Albumin/Globulin Ratio (1.1-2.2) Urine Color Yellow (Yellow) Urine Clarity Clear (Clear) Urine pH 7.0 (5.0-8.0) pH Units Ur Specific [place] 1.015 (1.010-1.025) Urine Protein >=300 H (Neg-Trace) mg/dL Urine Glucose (UA) Normal (Normal) mg/dL Urine Ketones Negative (Negative) mg/dL Urine Blood Trace H (Negative) Urine Nitrite Negative (Negative) Urine Bilirubin Negative (Negative) Urine Urobilinogen Normal (Normal) mg/dL Ur Leukocyte Esterase Negative (Negative) Urine Microscopic RBC 3-5 H (0-3) per hpf Urine Microscopic WBC 0-3 (0-3) per hpf Ur Squamous Epith Cells Moderate H (None-Few) per lpf Urine Bacteria None Seen (None-Few) per hpf Hyaline Casts None Seen (None-Few) per lpf Ur Culture Indicated? NO (NO) 10/03/18 10/04/18 10/04/18 Range/Units 23:37 01:10 07:12 WBC (4.3-11.1) K/mcL RBC (4.19-5.50) M/mcL Hgb (12.9-16.9) g/dL Hct (37.5-50.1) % MCV (83.0-100.0) fL MCH (28.0-33.3) pg MCHC (31.6-35.5) g/dL RDW (11.5-14.5) % Plt Count (140-400) K/mcL MPV (9.4-12.4) fL Immature Gran % (0-4) % Seg Neutrophils % % Lymphocytes % % Monocytes % % Eosinophils % % Basophils % % Neutrophils # (1.6-8.9) K/mcL Lymphocytes # (0.6-4.6) K/mcL Monocytes # (0.0-1.3) K/mcL Eosinophils # (0.0-0.6) K/mcL Basophils # (0.0-0.2) K/mcL PT (9.4-12.1) Seconds INR Sodium (136-145) mEq/L Potassium (3.5-5.1) mEq/L Chloride (98-107) mEq/L Carbon Dioxide (23-29) mEq/L BUN (8-23) mg/dL Creatinine (0.70-1.30) mg/dL Est GFR ( Amer) (> 60) Est GFR (Non-Af Amer) (> 60) BUN/Creatinine Ratio (6-26) Glucose (70-105) mg/dL POC Glucose 101 H 77 (70-99) mg/dL Calculated Osmolality (280-300) Calcium (8.6-10.3) mg/dL Magnesium (1.6-2.6) mg/dL Total Bilirubin (0.3-1.0) mg/dL AST (13-39) Units/L ALT (7-52) Units/L Alkaline Phosphatase (34-104) Units/L Troponin I 0.03 (< 0.04) ng/mL Serum Total Protein (6.4-8.9) g/dL Albumin (3.5-5.7) g/dL Globulin (2.4-3.5) g/dL Albumin/Globulin Ratio (1.1-2.2) Urine Color (Yellow) Urine Clarity (Clear) Urine pH (5.0-8.0) pH Units Ur Specific [place] (1.010-1.025) Urine Protein (Neg-Trace) mg/dL Urine Glucose (UA) (Normal) mg/dL Urine Ketones (Negative) mg/dL Urine Blood (Negative) Urine Nitrite (Negative) Urine Bilirubin (Negative) Urine Urobilinogen (Normal) mg/dL Ur Leukocyte Esterase (Negative) Urine Microscopic RBC (0-3) per hpf Urine Microscopic WBC (0-3) per hpf Ur Squamous Epith Cells (None-Few) per lpf Urine Bacteria (None-Few) per hpf Hyaline Casts (None-Few) per lpf Ur Culture Indicated? (NO) 10/04/18 10/04/18 10/04/18 Range/Units 08:01 08:01 08:01 WBC 4.0 L (4.3-11.1) K/mcL RBC 4.07 L (4.19-5.50) M/mcL Hgb 12.3 L (12.9-16.9) g/dL Hct 36.8 L (37.5-50.1) % MCV 90.4 (83.0-100.0) fL MCH 30.2 (28.0-33.3) pg MCHC 33.4 (31.6-35.5) g/dL RDW 15.7 H (11.5-14.5) % Plt Count 125 L (140-400) K/mcL MPV 10.6 (9.4-12.4) fL Immature Gran % 0.3 (0-4) % Seg Neutrophils % 71.2 % Lymphocytes % 16.1 % Monocytes % 8.6 % Eosinophils % 2.3 % Basophils % 1.5 % Neutrophils # 2.8 (1.6-8.9) K/mcL Lymphocytes # 0.6 (0.6-4.6) K/mcL Monocytes # 0.3 (0.0-1.3) K/mcL Eosinophils # 0.1 (0.0-0.6) K/mcL Basophils # 0.1 (0.0-0.2) K/mcL PT 20.3 H (9.4-12.1) Seconds INR 1.8 Sodium 147 H (136-145) mEq/L Potassium 2.8 L (3.5-5.1) mEq/L Chloride 107 (98-107) mEq/L Carbon Dioxide 31 H (23-29) mEq/L BUN 21 (8-23) mg/dL Creatinine 1.04 (0.70-1.30) mg/dL Est GFR ( Amer) > 60 (> 60) Est GFR (Non-Af Amer) > 60 (> 60) BUN/Creatinine Ratio 20 (6-26) Glucose 85 (70-105) mg/dL POC Glucose (70-99) mg/dL Calculated Osmolality 306 H (280-300) Calcium 9.5 (8.6-10.3) mg/dL Magnesium 1.8 (1.6-2.6) mg/dL Total Bilirubin 2.3 H (0.3-1.0) mg/dL AST 25 (13-39) Units/L ALT 10 (7-52) Units/L Alkaline Phosphatase 113 H (34-104) Units/L Troponin I (< 0.04) ng/mL Serum Total Protein 6.8 (6.4-8.9) g/dL Albumin 3.4 L (3.5-5.7) g/dL Globulin 3.4 (2.4-3.5) g/dL Albumin/Globulin Ratio 1.0 L (1.1-2.2) Urine Color (Yellow) Urine Clarity (Clear) Urine pH (5.0-8.0) pH Units Ur Specific [place] (1.010-1.025) Urine Protein (Neg-Trace) mg/dL Urine Glucose (UA) (Normal) mg/dL Urine Ketones (Negative) mg/dL Urine Blood (Negative) Urine Nitrite (Negative) Urine Bilirubin (Negative) Urine Urobilinogen (Normal) mg/dL Ur Leukocyte Esterase (Negative) Urine Microscopic RBC (0-3) per hpf Urine Microscopic WBC (0-3) per hpf Ur Squamous Epith Cells (None-Few) per lpf Urine Bacteria (None-Few) per hpf Hyaline Casts (None-Few) per lpf Ur Culture Indicated? (NO) 10/04/18 10/04/18 10/04/18 Range/Units 08:01 10:49 17:41 WBC (4.3-11.1) K/mcL RBC (4.19-5.50) M/mcL Hgb (12.9-16.9) g/dL Hct (37.5-50.1) % MCV (83.0-100.0) fL MCH (28.0-33.3) pg MCHC (31.6-35.5) g/dL RDW (11.5-14.5) % Plt Count (140-400) K/mcL MPV (9.4-12.4) fL Immature Gran % (0-4) % Seg Neutrophils % % Lymphocytes % % Monocytes % % Eosinophils % % Basophils % % Neutrophils # (1.6-8.9) K/mcL Lymphocytes # (0.6-4.6) K/mcL Monocytes # (0.0-1.3) K/mcL Eosinophils # (0.0-0.6) K/mcL Basophils # (0.0-0.2) K/mcL PT (9.4-12.1) Seconds INR Sodium (136-145) mEq/L Potassium (3.5-5.1) mEq/L Chloride (98-107) mEq/L Carbon Dioxide (23-29) mEq/L BUN (8-23) mg/dL Creatinine (0.70-1.30) mg/dL Est GFR ( Amer) (> 60) Est GFR (Non-Af Amer) (> 60) BUN/Creatinine Ratio (6-26) Glucose (70-105) mg/dL POC Glucose 173 H 99 (70-99) mg/dL Calculated Osmolality (280-300) Calcium (8.6-10.3) mg/dL Magnesium (1.6-2.6) mg/dL Total Bilirubin (0.3-1.0) mg/dL AST (13-39) Units/L ALT (7-52) Units/L Alkaline Phosphatase (34-104) Units/L Troponin I 0.04 H* (< 0.04) ng/mL Serum Total Protein (6.4-8.9) g/dL Albumin (3.5-5.7) g/dL Globulin (2.4-3.5) g/dL Albumin/Globulin Ratio (1.1-2.2) Urine Color (Yellow) Urine Clarity (Clear) Urine pH (5.0-8.0) pH Units Ur Specific [place] (1.010-1.025) Urine Protein (Neg-Trace) mg/dL Urine Glucose (UA) (Normal) mg/dL Urine Ketones (Negative) mg/dL Urine Blood (Negative) Urine Nitrite (Negative) Urine Bilirubin (Negative) Urine Urobilinogen (Normal) mg/dL Ur Leukocyte Esterase (Negative) Urine Microscopic RBC (0-3) per hpf Urine Microscopic WBC (0-3) per hpf Ur Squamous Epith Cells (None-Few) per lpf Urine Bacteria (None-Few) per hpf Hyaline Casts (None-Few) per lpf Ur Culture Indicated? (NO) 10/04/18 10/05/18 10/05/18 Range/Units 20:22 06:31 06:38 WBC 4.2 L (4.3-11.1) K/mcL RBC 4.33 (4.19-5.50) M/mcL Hgb 13.1 (12.9-16.9) g/dL Hct 39.2 (37.5-50.1) % MCV 90.5 (83.0-100.0) fL MCH 30.3 (28.0-33.3) pg MCHC 33.4 (31.6-35.5) g/dL RDW 15.7 H (11.5-14.5) % Plt Count 118 L (140-400) K/mcL MPV 10.5 (9.4-12.4) fL Immature Gran % 0.5 (0-4) % Seg Neutrophils % 70.6 % Lymphocytes % 15.6 % Monocytes % 9.4 % Eosinophils % 2.9 % Basophils % 1.0 % Neutrophils # 3.0 (1.6-8.9) K/mcL Lymphocytes # 0.7 (0.6-4.6) K/mcL Monocytes # 0.4 (0.0-1.3) K/mcL Eosinophils # 0.1 (0.0-0.6) K/mcL Basophils # 0.0 (0.0-0.2) K/mcL PT (9.4-12.1) Seconds INR Sodium (136-145) mEq/L Potassium (3.5-5.1) mEq/L Chloride (98-107) mEq/L Carbon Dioxide (23-29) mEq/L BUN (8-23) mg/dL Creatinine (0.70-1.30) mg/dL Est GFR ( Amer) (> 60) Est GFR (Non-Af Amer) (> 60) BUN/Creatinine Ratio (6-26) Glucose (70-105) mg/dL POC Glucose 156 H 101 H (70-99) mg/dL Calculated Osmolality (280-300) Calcium (8.6-10.3) mg/dL Magnesium (1.6-2.6) mg/dL Total Bilirubin (0.3-1.0) mg/dL AST (13-39) Units/L ALT (7-52) Units/L Alkaline Phosphatase (34-104) Units/L Troponin I (< 0.04) ng/mL Serum Total Protein (6.4-8.9) g/dL Albumin (3.5-5.7) g/dL Globulin (2.4-3.5) g/dL Albumin/Globulin Ratio (1.1-2.2) Urine Color (Yellow) Urine Clarity (Clear) Urine pH (5.0-8.0) pH Units Ur Specific [place] (1.010-1.025) Urine Protein (Neg-Trace) mg/dL Urine Glucose (UA) (Normal) mg/dL Urine Ketones (Negative) mg/dL Urine Blood (Negative) Urine Nitrite (Negative) Urine Bilirubin (Negative) Urine Urobilinogen (Normal) mg/dL Ur Leukocyte Esterase (Negative) Urine Microscopic RBC (0-3) per hpf Urine Microscopic WBC (0-3) per hpf Ur Squamous Epith Cells (None-Few) per lpf Urine Bacteria (None-Few) per hpf Hyaline Casts (None-Few) per lpf Ur Culture Indicated? (NO) 10/05/18 10/05/18 10/05/18 Range/Units 06:38 06:38 11:30 WBC (4.3-11.1) K/mcL RBC (4.19-5.50) M/mcL Hgb (12.9-16.9) g/dL Hct (37.5-50.1) % MCV (83.0-100.0) fL MCH (28.0-33.3) pg MCHC (31.6-35.5) g/dL RDW (11.5-14.5) % Plt Count (140-400) K/mcL MPV (9.4-12.4) fL Immature Gran % (0-4) % Seg Neutrophils % % Lymphocytes % % Monocytes % % Eosinophils % % Basophils % % Neutrophils # (1.6-8.9) K/mcL Lymphocytes # (0.6-4.6) K/mcL Monocytes # (0.0-1.3) K/mcL Eosinophils # (0.0-0.6) K/mcL Basophils # (0.0-0.2) K/mcL PT 17.7 H (9.4-12.1) Seconds INR 1.6 Sodium 147 H (136-145) mEq/L Potassium 2.9 L (3.5-5.1) mEq/L Chloride 108 H (98-107) mEq/L Carbon Dioxide 28 (23-29) mEq/L BUN 18 (8-23) mg/dL Creatinine 0.95 (0.70-1.30) mg/dL Est GFR ( Amer) > 60 (> 60) Est GFR (Non-Af Amer) > 60 (> 60) BUN/Creatinine Ratio 19 (6-26) Glucose 115 H (70-105) mg/dL POC Glucose 228 H (70-99) mg/dL Calculated Osmolality 307 H (280-300) Calcium 9.4 (8.6-10.3) mg/dL Magnesium (1.6-2.6) mg/dL Total Bilirubin (0.3-1.0) mg/dL AST (13-39) Units/L ALT (7-52) Units/L Alkaline Phosphatase (34-104) Units/L Troponin I 0.05 H* (< 0.04) ng/mL Serum Total Protein (6.4-8.9) g/dL Albumin (3.5-5.7) g/dL Globulin (2.4-3.5) g/dL Albumin/Globulin Ratio (1.1-2.2) Urine Color (Yellow) Urine Clarity (Clear) Urine pH (5.0-8.0) pH Units Ur Specific [place] (1.010-1.025) Urine Protein (Neg-Trace) mg/dL Urine Glucose (UA) (Normal) mg/dL Urine Ketones (Negative) mg/dL Urine Blood (Negative) Urine Nitrite (Negative) Urine Bilirubin (Negative) Urine Urobilinogen (Normal) mg/dL Ur Leukocyte Esterase (Negative) Urine Microscopic RBC (0-3) per hpf Urine Microscopic WBC (0-3) per hpf Ur Squamous Epith Cells (None-Few) per lpf Urine Bacteria (None-Few) per hpf Hyaline Casts (None-Few) per lpf Ur Culture Indicated? (NO) 10/05/18 10/05/18 10/05/18 Range/Units 16:55 19:58 20:26 WBC (4.3-11.1) K/mcL RBC (4.19-5.50) M/mcL Hgb (12.9-16.9) g/dL Hct (37.5-50.1) % MCV (83.0-100.0) fL MCH (28.0-33.3) pg MCHC (31.6-35.5) g/dL RDW (11.5-14.5) % Plt Count (140-400) K/mcL MPV (9.4-12.4) fL Immature Gran % (0-4) % Seg Neutrophils % % Lymphocytes % % Monocytes % % Eosinophils % % Basophils % % Neutrophils # (1.6-8.9) K/mcL Lymphocytes # (0.6-4.6) K/mcL Monocytes # (0.0-1.3) K/mcL Eosinophils # (0.0-0.6) K/mcL Basophils # (0.0-0.2) K/mcL PT (9.4-12.1) Seconds INR Sodium 142 (136-145) mEq/L Potassium 3.2 L (3.5-5.1) mEq/L Chloride 108 H (98-107) mEq/L Carbon Dioxide 27 (23-29) mEq/L BUN 21 (8-23) mg/dL Creatinine 1.24 (0.70-1.30) mg/dL Est GFR ( Amer) > 60 (> 60) Est GFR (Non-Af Amer) 57 L (> 60) BUN/Creatinine Ratio 17 (6-26) Glucose 189 H (70-105) mg/dL POC Glucose 116 H 179 H (70-99) mg/dL Calculated Osmolality 302 H (280-300) Calcium 9.0 (8.6-10.3) mg/dL Magnesium (1.6-2.6) mg/dL Total Bilirubin (0.3-1.0) mg/dL AST (13-39) Units/L ALT (7-52) Units/L Alkaline Phosphatase (34-104) Units/L Troponin I (< 0.04) ng/mL Serum Total Protein (6.4-8.9) g/dL Albumin (3.5-5.7) g/dL Globulin (2.4-3.5) g/dL Albumin/Globulin Ratio (1.1-2.2) Urine Color (Yellow) Urine Clarity (Clear) Urine pH (5.0-8.0) pH Units Ur Specific [place] (1.010-1.025) Urine Protein (Neg-Trace) mg/dL Urine Glucose (UA) (Normal) mg/dL Urine Ketones (Negative) mg/dL Urine Blood (Negative) Urine Nitrite (Negative) Urine Bilirubin (Negative) Urine Urobilinogen (Normal) mg/dL Ur Leukocyte Esterase (Negative) Urine Microscopic RBC (0-3) per hpf Urine Microscopic WBC (0-3) per hpf Ur Squamous Epith Cells (None-Few) per lpf Urine Bacteria (None-Few) per hpf Hyaline Casts (None-Few) per lpf Ur Culture Indicated? (NO) 10/06/18 10/06/18 10/06/18 Range/Units 03:57 03:57 03:57 WBC 4.4 (4.3-11.1) K/mcL RBC 3.88 L (4.19-5.50) M/mcL Hgb 11.6 L D (12.9-16.9) g/dL Hct 35.5 L (37.5-50.1) % MCV 91.5 (83.0-100.0) fL MCH 29.9 (28.0-33.3) pg MCHC 32.7 (31.6-35.5) g/dL RDW 15.8 H (11.5-14.5) % Plt Count 118 L (140-400) K/mcL MPV 10.9 (9.4-12.4) fL Immature Gran % 0.5 (0-4) % Seg Neutrophils % 71.1 % Lymphocytes % 14.9 % Monocytes % 9.7 % Eosinophils % 2.9 % Basophils % 0.9 % Neutrophils # 3.1 (1.6-8.9) K/mcL Lymphocytes # 0.7 (0.6-4.6) K/mcL Monocytes # 0.4 (0.0-1.3) K/mcL Eosinophils # 0.1 (0.0-0.6) K/mcL Basophils # 0.0 (0.0-0.2) K/mcL PT 19.6 H (9.4-12.1) Seconds INR 1.7 Sodium 142 (136-145) mEq/L Potassium 3.3 L (3.5-5.1) mEq/L Chloride 107 (98-107) mEq/L Carbon Dioxide 28 (23-29) mEq/L BUN 23 (8-23) mg/dL Creatinine 1.29 (0.70-1.30) mg/dL Est GFR ( Amer) > 60 (> 60) Est GFR (Non-Af Amer) 54 L (> 60) BUN/Creatinine Ratio 18 (6-26) Glucose 125 H (70-105) mg/dL POC Glucose (70-99) mg/dL Calculated Osmolality 299 (280-300) Calcium 9.0 (8.6-10.3) mg/dL Magnesium (1.6-2.6) mg/dL Total Bilirubin (0.3-1.0) mg/dL AST (13-39) Units/L ALT (7-52) Units/L Alkaline Phosphatase (34-104) Units/L Troponin I (< 0.04) ng/mL Serum Total Protein (6.4-8.9) g/dL Albumin (3.5-5.7) g/dL Globulin (2.4-3.5) g/dL Albumin/Globulin Ratio (1.1-2.2) Urine Color (Yellow) Urine Clarity (Clear) Urine pH (5.0-8.0) pH Units Ur Specific [place] (1.010-1.025) Urine Protein (Neg-Trace) mg/dL Urine Glucose (UA) (Normal) mg/dL Urine Ketones (Negative) mg/dL Urine Blood (Negative) Urine Nitrite (Negative) Urine Bilirubin (Negative) Urine Urobilinogen (Normal) mg/dL Ur Leukocyte Esterase (Negative) Urine Microscopic RBC (0-3) per hpf Urine Microscopic WBC (0-3) per hpf Ur Squamous Epith Cells (None-Few) per lpf Urine Bacteria (None-Few) per hpf Hyaline Casts (None-Few) per lpf Ur Culture Indicated? (NO) 10/06/18 10/06/18 10/06/18 Range/Units 07:34 11:37 15:40 WBC (4.3-11.1) K/mcL RBC (4.19-5.50) M/mcL Hgb (12.9-16.9) g/dL Hct (37.5-50.1) % MCV (83.0-100.0) fL MCH (28.0-33.3) pg MCHC (31.6-35.5) g/dL RDW (11.5-14.5) % Plt Count (140-400) K/mcL MPV (9.4-12.4) fL Immature Gran % (0-4) % Seg Neutrophils % % Lymphocytes % % Monocytes % % Eosinophils % % Basophils % % Neutrophils # (1.6-8.9) K/mcL Lymphocytes # (0.6-4.6) K/mcL Monocytes # (0.0-1.3) K/mcL Eosinophils # (0.0-0.6) K/mcL Basophils # (0.0-0.2) K/mcL PT (9.4-12.1) Seconds INR Sodium (136-145) mEq/L Potassium (3.5-5.1) mEq/L Chloride (98-107) mEq/L Carbon Dioxide (23-29) mEq/L BUN (8-23) mg/dL Creatinine (0.70-1.30) mg/dL Est GFR ( Amer) (> 60) Est GFR (Non-Af Amer) (> 60) BUN/Creatinine Ratio (6-26) Glucose (70-105) mg/dL POC Glucose 136 H 152 H 112 H (70-99) mg/dL Calculated Osmolality (280-300) Calcium (8.6-10.3) mg/dL Magnesium (1.6-2.6) mg/dL Total Bilirubin (0.3-1.0) mg/dL AST (13-39) Units/L ALT (7-52) Units/L Alkaline Phosphatase (34-104) Units/L Troponin I (< 0.04) ng/mL Serum Total Protein (6.4-8.9) g/dL Albumin (3.5-5.7) g/dL Globulin (2.4-3.5) g/dL Albumin/Globulin Ratio (1.1-2.2) Urine Color (Yellow) Urine Clarity (Clear) Urine pH (5.0-8.0) pH Units Ur Specific [place] (1.010-1.025) Urine Protein (Neg-Trace) mg/dL Urine Glucose (UA) (Normal) mg/dL Urine Ketones (Negative) mg/dL Urine Blood (Negative) Urine Nitrite (Negative) Urine Bilirubin (Negative) Urine Urobilinogen (Normal) mg/dL Ur Leukocyte Esterase (Negative) Urine Microscopic RBC (0-3) per hpf Urine Microscopic WBC (0-3) per hpf Ur Squamous Epith Cells (None-Few) per lpf Urine Bacteria (None-Few) per hpf Hyaline Casts (None-Few) per lpf Ur Culture Indicated? (NO) 10/06/18 10/07/18 10/07/18 Range/Units 19:56 04:36 04:36 WBC 4.3 (4.3-11.1) K/mcL RBC 3.81 L (4.19-5.50) M/mcL Hgb 11.5 L (12.9-16.9) g/dL Hct 35.7 L (37.5-50.1) % MCV 93.7 (83.0-100.0) fL MCH 30.2 (28.0-33.3) pg MCHC 32.2 (31.6-35.5) g/dL RDW 16.0 H (11.5-14.5) % Plt Count 118 L (140-400) K/mcL MPV 10.8 (9.4-12.4) fL Immature Gran % 0.5 (0-4) % Seg Neutrophils % 71.6 % Lymphocytes % 15.2 % Monocytes % 8.7 % Eosinophils % 3.3 % Basophils % 0.7 % Neutrophils # 3.1 (1.6-8.9) K/mcL Lymphocytes # 0.7 (0.6-4.6) K/mcL Monocytes # 0.4 (0.0-1.3) K/mcL Eosinophils # 0.1 (0.0-0.6) K/mcL Basophils # 0.0 (0.0-0.2) K/mcL PT 23.3 H (9.4-12.1) Seconds INR 2.1 Sodium (136-145) mEq/L Potassium (3.5-5.1) mEq/L Chloride (98-107) mEq/L Carbon Dioxide (23-29) mEq/L BUN (8-23) mg/dL Creatinine (0.70-1.30) mg/dL Est GFR ( Amer) (> 60) Est GFR (Non-Af Amer) (> 60) BUN/Creatinine Ratio (6-26) Glucose (70-105) mg/dL POC Glucose 160 H (70-99) mg/dL Calculated Osmolality (280-300) Calcium (8.6-10.3) mg/dL Magnesium (1.6-2.6) mg/dL Total Bilirubin (0.3-1.0) mg/dL AST (13-39) Units/L ALT (7-52) Units/L Alkaline Phosphatase (34-104) Units/L Troponin I (< 0.04) ng/mL Serum Total Protein (6.4-8.9) g/dL Albumin (3.5-5.7) g/dL Globulin (2.4-3.5) g/dL Albumin/Globulin Ratio (1.1-2.2) Urine Color (Yellow) Urine Clarity (Clear) Urine pH (5.0-8.0) pH Units Ur Specific [place] (1.010-1.025) Urine Protein (Neg-Trace) mg/dL Urine Glucose (UA) (Normal) mg/dL Urine Ketones (Negative) mg/dL Urine Blood (Negative) Urine Nitrite (Negative) Urine Bilirubin (Negative) Urine Urobilinogen (Normal) mg/dL Ur Leukocyte Esterase (Negative) Urine Microscopic RBC (0-3) per hpf Urine Microscopic WBC (0-3) per hpf Ur Squamous Epith Cells (None-Few) per lpf Urine Bacteria (None-Few) per hpf Hyaline Casts (None-Few) per lpf Ur Culture Indicated? (NO) 10/07/18 10/07/18 10/07/18 Range/Units 04:36 07:05 11:44 WBC (4.3-11.1) K/mcL RBC (4.19-5.50) M/mcL Hgb (12.9-16.9) g/dL Hct (37.5-50.1) % MCV (83.0-100.0) fL MCH (28.0-33.3) pg MCHC (31.6-35.5) g/dL RDW (11.5-14.5) % Plt Count (140-400) K/mcL MPV (9.4-12.4) fL Immature Gran % (0-4) % Seg Neutrophils % % Lymphocytes % % Monocytes % % Eosinophils % % Basophils % % Neutrophils # (1.6-8.9) K/mcL Lymphocytes # (0.6-4.6) K/mcL Monocytes # (0.0-1.3) K/mcL Eosinophils # (0.0-0.6) K/mcL Basophils # (0.0-0.2) K/mcL PT (9.4-12.1) Seconds INR Sodium 143 (136-145) mEq/L Potassium 3.3 L (3.5-5.1) mEq/L Chloride 108 H (98-107) mEq/L Carbon Dioxide 27 (23-29) mEq/L BUN 28 H (8-23) mg/dL Creatinine 1.30 (0.70-1.30) mg/dL Est GFR ( Amer) > 60 (> 60) Est GFR (Non-Af Amer) 54 L (> 60) BUN/Creatinine Ratio 22 (6-26) Glucose 130 H (70-105) mg/dL POC Glucose 108 H 167 H (70-99) mg/dL Calculated Osmolality 303 H (280-300) Calcium 8.9 (8.6-10.3) mg/dL Magnesium (1.6-2.6) mg/dL Total Bilirubin (0.3-1.0) mg/dL AST (13-39) Units/L ALT (7-52) Units/L Alkaline Phosphatase (34-104) Units/L Troponin I (< 0.04) ng/mL Serum Total Protein (6.4-8.9) g/dL Albumin (3.5-5.7) g/dL Globulin (2.4-3.5) g/dL Albumin/Globulin Ratio (1.1-2.2) Urine Color (Yellow) Urine Clarity (Clear) Urine pH (5.0-8.0) pH Units Ur Specific [place] (1.010-1.025) Urine Protein (Neg-Trace) mg/dL Urine Glucose (UA) (Normal) mg/dL Urine Ketones (Negative) mg/dL Urine Blood (Negative) Urine Nitrite (Negative) Urine Bilirubin (Negative) Urine Urobilinogen (Normal) mg/dL Ur Leukocyte Esterase (Negative) Urine Microscopic RBC (0-3) per hpf Urine Microscopic WBC (0-3) per hpf Ur Squamous Epith Cells (None-Few) per lpf Urine Bacteria (None-Few) per hpf Hyaline Casts (None-Few) per lpf Ur Culture Indicated? (NO) 10/07/18 10/07/18 10/08/18 Range/Units 14:57 20:15 05:24 WBC (4.3-11.1) K/mcL RBC (4.19-5.50) M/mcL Hgb (12.9-16.9) g/dL Hct (37.5-50.1) % MCV (83.0-100.0) fL MCH (28.0-33.3) pg MCHC (31.6-35.5) g/dL RDW (11.5-14.5) % Plt Count (140-400) K/mcL MPV (9.4-12.4) fL Immature Gran % (0-4) % Seg Neutrophils % % Lymphocytes % % Monocytes % % Eosinophils % % Basophils % % Neutrophils # (1.6-8.9) K/mcL Lymphocytes # (0.6-4.6) K/mcL Monocytes # (0.0-1.3) K/mcL Eosinophils # (0.0-0.6) K/mcL Basophils # (0.0-0.2) K/mcL PT 25.7 H (9.4-12.1) Seconds INR 2.3 Sodium (136-145) mEq/L Potassium (3.5-5.1) mEq/L Chloride (98-107) mEq/L Carbon Dioxide (23-29) mEq/L BUN (8-23) mg/dL Creatinine (0.70-1.30) mg/dL Est GFR ( Amer) (> 60) Est GFR (Non-Af Amer) (> 60) BUN/Creatinine Ratio (6-26) Glucose (70-105) mg/dL POC Glucose 118 H 131 H (70-99) mg/dL Calculated Osmolality (280-300) Calcium (8.6-10.3) mg/dL Magnesium (1.6-2.6) mg/dL Total Bilirubin (0.3-1.0) mg/dL AST (13-39) Units/L ALT (7-52) Units/L Alkaline Phosphatase (34-104) Units/L Troponin I (< 0.04) ng/mL Serum Total Protein (6.4-8.9) g/dL Albumin (3.5-5.7) g/dL Globulin (2.4-3.5) g/dL Albumin/Globulin Ratio (1.1-2.2) Urine Color (Yellow) Urine Clarity (Clear) Urine pH (5.0-8.0) pH Units Ur Specific [place] (1.010-1.025) Urine Protein (Neg-Trace) mg/dL Urine Glucose (UA) (Normal) mg/dL Urine Ketones (Negative) mg/dL Urine Blood (Negative) Urine Nitrite (Negative) Urine Bilirubin (Negative) Urine Urobilinogen (Normal) mg/dL Ur Leukocyte Esterase (Negative) Urine Microscopic RBC (0-3) per hpf Urine Microscopic WBC (0-3) per hpf Ur Squamous Epith Cells (None-Few) per lpf Urine Bacteria (None-Few) per hpf Hyaline Casts (None-Few) per lpf Ur Culture Indicated? (NO) 10/08/18 10/08/18 10/08/18 Range/Units 05:24 07:37 11:08 WBC (4.3-11.1) K/mcL RBC (4.19-5.50) M/mcL Hgb (12.9-16.9) g/dL Hct (37.5-50.1) % MCV (83.0-100.0) fL MCH (28.0-33.3) pg MCHC (31.6-35.5) g/dL RDW (11.5-14.5) % Plt Count (140-400) K/mcL MPV (9.4-12.4) fL Immature Gran % (0-4) % Seg Neutrophils % % Lymphocytes % % Monocytes % % Eosinophils % % Basophils % % Neutrophils # (1.6-8.9) K/mcL Lymphocytes # (0.6-4.6) K/mcL Monocytes # (0.0-1.3) K/mcL Eosinophils # (0.0-0.6) K/mcL Basophils # (0.0-0.2) K/mcL PT (9.4-12.1) Seconds INR Sodium 143 (136-145) mEq/L Potassium 3.3 L (3.5-5.1) mEq/L Chloride 109 H (98-107) mEq/L Carbon Dioxide 27 (23-29) mEq/L BUN 32 H (8-23) mg/dL Creatinine 1.15 (0.70-1.30) mg/dL Est GFR ( Amer) > 60 (> 60) Est GFR (Non-Af Amer) > 60 (> 60) BUN/Creatinine Ratio 28 H (6-26) Glucose 126 H (70-105) mg/dL POC Glucose 126 H 166 H (70-99) mg/dL Calculated Osmolality 304 H (280-300) Calcium 9.4 (8.6-10.3) mg/dL Magnesium 1.8 (1.6-2.6) mg/dL Total Bilirubin (0.3-1.0) mg/dL AST (13-39) Units/L ALT (7-52) Units/L Alkaline Phosphatase (34-104) Units/L Troponin I (< 0.04) ng/mL Serum Total Protein (6.4-8.9) g/dL Albumin (3.5-5.7) g/dL Globulin (2.4-3.5) g/dL Albumin/Globulin Ratio (1.1-2.2) Urine Color (Yellow) Urine Clarity (Clear) Urine pH (5.0-8.0) pH Units Ur Specific [place] (1.010-1.025) Urine Protein (Neg-Trace) mg/dL Urine Glucose (UA) (Normal) mg/dL Urine Ketones (Negative) mg/dL Urine Blood (Negative) Urine Nitrite (Negative) Urine Bilirubin (Negative) Urine Urobilinogen (Normal) mg/dL Ur Leukocyte Esterase (Negative) Urine Microscopic RBC (0-3) per hpf Urine Microscopic WBC (0-3) per hpf Ur Squamous Epith Cells (None-Few) per lpf Urine Bacteria (None-Few) per hpf Hyaline Casts (None-Few) per lpf Ur Culture Indicated? (NO) Attestation Statement - Attestation Attestation: I examined this patient and my medical decision-making was reviewed with the Resident Physician. I agree with the documented findings, disposition and treatment plan as described except to the extent set forth below. Patient with gradually worsening generalized weakness over the course of the last 2-3 days presents with elevated blood pressure. Troponin 0.04 creatinine, troponin not elevated before. EKG nonischemic. I think it would be a stretch to call this a hypertensive emergency with troponin that is essentially at the upper limits of normal, no chest pain or shortness of breath, symptoms that have gradually evolved and no ischemia on EKG, but I do think it is justified to be a little more aggressive with blood pressure management in this situation than the normal hypertensive non-emergency case.
[2018-10-03] MEDS ORDERED: amLODIPine 5 MG TABLET PO STA (20:23)
[2018-10-03] MEDS ORDERED: Naloxone 0.4 MG/ML INJ IVP PRN (22:19)
[2018-10-03] MEDS ORDERED: D5% in Water 1,000 ML IVC PRN (23:15)
[2018-10-03] MEDS ORDERED: Dextrose Gel 15 GM/37.5 ML TUBE PO PRN ×2 (23:15)
[2018-10-03] MEDS ORDERED: *HR* Dextrose 50 % in Water (Syg) 50 ML SYRINGE IVP PRN (23:15)
[2018-10-03] MEDS ORDERED: *HR* Labetalol 20 MG/4 ML SYRINGE IVP ONE (23:30)
[2018-10-03] MEDS: Insulin LISPRO 300 UNITS/3 ML VIAL SQ SCH (23:47)
[2018-10-04] MEDS ORDERED: Furosemide 20 MG/2 ML VIAL IVP ONE (01:11)
[2018-10-04] MEDS ORDERED: *HR* Labetalol 20 MG/4 ML SYRINGE IVP ONE (07:49)
--- NOTE | 2018-10-04 07:50 | Internal Med History&Physical ---
Date of Encounter: 10/04/18 Time of Encounter: 02:00 Internal Medicine - H&P: HPI Chief complaint: Elevated blood pressure History of present illness: Mr. Lora is a 78 year old male with past medical history of atrial fibrillation, diabetes, HCC, hypertension, CKD, COPD who presented to the ED with a chief complaint of weakness and elevated blood pressure. Patient states that his blood pressures been elevated over the past week, but has been especially high with past 3 days with a systolic in the 220s. Patient reports being compliant with his medications. He states he has been off his lisinopril since last March per his doctor. He contacted his clinical transplant coordinator earlier today and reported his blood pressure readings and was subsequently referred to the ED. Patient denies any chest pain however was found to have a mildly elevated troponin of 0.04 on arrival. No EKG changes were noted. He does complain of worsening lower extremity edema and some dyspnea. Upon arrival patient was found have a blood pressure of 195/100. He was given a one-time dose of 5 mg of Lopressor and amlodipine by mouth. Patient was otherwise asymptomatic. 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, skin CA removed, heart cath x2 - Social History Smoking Status: Former smoker Smokeless Tobacco Status: No Alcohol use: rarely Drug use: none - Family History Father Living Status: Hx Family Endocrine Disorder: Yes (dm) Mother Hx Family Cancer: Yes (breast and pancreatic) - Additional Family History Additional family history: Noncontributory Internal Medicine - H&P: Meds Aspirin Enteric Coated [Aspirin EC] 81 mg PO DAILY 03/26/15 [History] Pravastatin Sodium [Pravachol] 20 mg PO QPM 03/26/15 [History] Albuterol Sulfate [Proair Respiclick] 2 puff IH Q4HR PRN 12/24/16 [History] Budesonide/Formoterol 160/4.5 [Symbicort 160/4.5] 2 puff IH BIDR PRN 12/24/16 [History] Cholecalciferol (D-3) [Vitamin D] 1,000 unit PO DAILY 04/18/18 [History] Gemfibrozil [Lopid] 600 mg PO BID 04/18/18 [History] Glimepiride [Amaryl] 1 mg PO DAILY 04/18/18 [History] Isosorbide MONOnitrate (24 HR) [Imdur] 60 mg PO DAILY 04/18/18 [History] Metoprolol [Lopressor] 150 mg PO BID 04/18/18 [History] Montelukast [Singulair] 10 mg PO HS 04/18/18 [History] Warfarin [Coumadin] 2.5 mg PO AD 04/18/18 [History] Warfarin [Coumadin] 3 mg PO AD 04/18/18 [History] Pantoprazole Sodium [Protonix] 40 mg PO DAILY #30 tablet. 09/01/18 [Rx] Insulin DETEMIR [Levemir Flextouch] 6 unit SQ HS 09/04/18 [History] Pantoprazole Sodium 40 mg PO DAILY #30 tablet. 10/02/18 [Rx] Allergy/AdvReac Type Severity Reaction Status Date / Time clonidine AdvReac Dry Mucus Verified 09/04/18 11:39 Membranes Iodinated Contrast- Oral and AdvReac Flushing Verified 09/04/18 11:39 IV Dye All Systems PM: A 10-system review of systems was performed and is negative for pertinent findings except as documented above in the HPI. - Constitutional Constitutional: no chills, no fever(s), no night sweats - EENT Eyes: no change in vision, no discharge, no pain, no photophobia Ears: no ear discharge, no ear pain, no tinnitus Nose, mouth and throat: no dysphagia, no nasal discharge, no neck pain, no sore throat - Cardiovascular Cardiovascular ROS IM: no chest pain, no diaphoresis, no dyspnea, no lighthea dedness, no palpitations, no syncope - Respiratory Respiratory: no cough, no dyspnea, no wheezing, no excessive phlegm production - Gastrointestinal Gastrointestinal: no abdominal pain, no diarrhea, no hematemesis, no jaime tochezia, no melena, no nausea, no vomiting - Musculoskeletal Musculoskeletal ROS IM: no numbness, no tingling - Integumentary Integumentary IM: no rash, no unusual bruising - Neurological Neurological ROS: no confusion, no convulsions, no focal weakness, no numbness, no tingling, no tremor(s) - Hematologic/Lymphatic Hematologic/Lymphatic: no easy bruising - Constitutional Vitals: Temp Pulse Resp BP Pulse Ox 97.8 F 83 18 187/89 92 10/04/18 07:08 10/04/18 07:08 10/04/18 07:08 10/04/18 07:08 10/04/18 07:08 Exam: General: Alert and oriented 3 in no acute distress Skin:Normal color, no rash, no lesions. HEENT:EOM, pupils equal, round and reactive. Cardiovascular:Normal S1 & S2, no rubs, murmurs or gallops. No JVD. Pulse regular. Lungs:Normal breath sounds, no wheezes or crackles. Abdomen:Soft, non-tender, no rigidity. Extremities: 1+ lower extremity edema Neurological:Normal cognition and motor skills. Pulses:Carotid and radial pulses normal +2. Rest of the physical exam is non contributory Internal Med - H&P Results - Labs CBC & Chem 7: 10/04/18 08:01 10/04/18 08:01 Labs: Short CBC 10/03/18 Range/Units 17:44 Hgb 12.0 L (12.9-16.9) g/dL Hct 36.2 L (37.5-50.1) % BMP 10/03/18 17:44 Sodium 145 Potassium 3.0 L Chloride 107 Carbon Dioxide 29 BUN 24 H Creatinine 1.04 Glucose 96 Calcium 9.4 Cardiac Enzymes 10/03/18 10/04/18 Range/Units 17:44 01:10 Troponin I 0.04 H* 0.03 (< 0.04) ng/mL Urine 10/03/18 Range/Units 18:23 Urine Color Yellow (Yellow) Urine Clarity Clear (Clear) Urine pH 7.0 (5.0-8.0) pH Units Ur Specific [employer] 1.015 (1.010-1.025) Urine Protein >=300 H (Neg-Trace) mg/dL Urine Glucose (UA) Normal (Normal) mg/dL - Assessment and plan (1) Hypertensive emergency Current Visit: Yes Status: Acute Assessment and plan: Patient presents with elevated blood pressure of greater than 200 systolic at home. Found to have a systolic blood pressure of >190 associated with history of dyspnea and lower extremity edema concerning for mild CHF exacerbation. Found to have a elevated troponin of 0.04. No reports of chest pain or EKG changes. Patient received Lopressor and amlodipine in the ED. Was given a one- time dose of IV labetalol 5 mg on the floor and subsequently achieved a target blood pressure of 175. -Continue with blood pressure control with a target systolic blood pressure of 175 within the first 24 hours. Patient seems to respond to low-dose labetalol. We will give as needed. -Treat mild CHF exacerbation. -Elevated troponin likely demand given the absence of any EKG changes or reports of chest pain. We will continue to trend. (2) Elevated troponin Current Visit: Yes Status: Acute Assessment and plan: Elevated troponin of 0.04 in the setting of hypertensive emergency. No EKG changes had noted above, no reports of any chest pain. Suspect demand ischemia -We will trend troponin -Monitor on telemetry (3) Heart failure, diastolic, with acute decompensation Current Visit: No Status: Acute Assessment and plan: Mild CHF exacerbation in the setting of hypertensive emergency. -We will give patient one-time dose of Lasix 20 mg IV push -Continue with home dose Lasix (4) Afib Current Visit: No Status: Chronic Assessment and plan: History of atrial fibrillation rate controlled on anticoagulation with warfarin. -Continue home medications and warfarin. Qualifiers: Atrial fibrillation type: unspecified Qualified Code(s): I48.91 - Unspecified atrial fibrillation (5) COPD (chronic obstructive pulmonary disease) Current Visit: No Status: Chronic Assessment and plan: No evidence of an acute exacerbation. Continue home inhalers. Qualifiers: COPD type: emphysema Emphysema type: panlobular Qualified 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 (6) DANNIELLE (obstructive sleep apnea) Current Visit: No Status: Chronic Assessment and plan: History of obstructive sleep apnea on CPAP at night. Continue CPAP at bedtime (7) DVT prophylaxis Current Visit: No Status: Acute Assessment and plan: Continue warfarin - Time Spent With Patient Total time spent is greater than 50% in coordination of care (as documented) at patient's floor/unit and/or counseling patient:
[2018-10-04 09:06] LABS: Basophils # 0.1 K/mcL (0.0-0.2); Basophils % 1.5 %; Eosinophils # 0.1 K/mcL (0.0-0.6); Eosinophils % 2.3 %; Hematocrit 36.8 % (37.5-50.1); Hemoglobin 12.3 g/dL (12.9-16.9); Immature Granulocytes % 0.3 % (0-4); Lymphocytes # 0.6 K/mcL (0.6-4.6); Lymphocytes % 16.1 %; Mean Corpuscular HGB Conc 33.4 g/dL (31.6-35.5); Mean Corpuscular Hemoglobin 30.2 pg (28.0-33.3); Mean Corpuscular Volume 90.4 fL (83.0-100.0); Mean Platelet Volume 10.6 fL (9.4-12.4); Monocytes # 0.3 K/mcL (0.0-1.3); Monocytes % 8.6 %; Neutrophils # 2.8 K/mcL (1.6-8.9); Platelet Count 125 K/mcL (140-400); Red Blood Count 4.07 M/mcL (4.19-5.50); Red Cell Distribution Width 15.7 % (11.5-14.5); Segmented Neutrophils % 71.2 %
[2018-10-04] MEDS: Insulin LISPRO 300 UNITS/3 ML VIAL SQ SCH ×3 (09:12→17:48)
[2018-10-04 09:13] LABS: INR 1.8; Prothrombin Time 20.3 Seconds (9.4-12.1)
[2018-10-04 09:24] LABS: Alanine Aminotransferase 10 Units/L (7-52); Albumin 3.4 g/dL (3.5-5.7); Alkaline Phosphatase 113 Units/L (34-104); Aspartate Amino Transferase 25 Units/L (13-39); BUN/Creatinine Ratio 20 (6-26); Bilirubin,Total 2.3 mg/dL (0.3-1.0); Blood Urea Nitrogen 21 mg/dL (8-23); Calcium 9.5 mg/dL (8.6-10.3); Carbon Dioxide 31 mEq/L (23-29); Chloride 107 mEq/L (98-107); Globulin 3.4 g/dL (2.4-3.5); Glucose 85 mg/dL (70-105); Magnesium 1.8 mg/dL (1.6-2.6); Osmolality,Calculated 306 (280-300); Potassium 2.8 mEq/L (3.5-5.1); Sodium 147 mEq/L (136-145); Total Protein 6.8 g/dL (6.4-8.9); eGFR For Non-African Americans > 60 (> 60)
[2018-10-04] MEDS ORDERED: Potassium Chloride 20 MEQ, Lidocaine 1% 2 ML in D5% in Water 250 ML IVPB ONE (09:33)
--- NOTE | 2018-10-04 14:41 | Electrocardiograph Report ---
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
--- NOTE | 2018-10-04 14:49 | Electrocardiograph Report ---
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
[2018-10-04] MEDS ORDERED: Warfarin perPT PO PRN (18:47)
--- NOTE | 2018-10-04 18:48 | Event Note ---
Date of Encounter: 10/04/18 Time of Encounter: 12:00 She was seen and examined earlier this morning by hospitalist. Currently patient denies any pain or discomfort I did discuss treatment plan the patient verbalized understanding.
[2018-10-04] MEDS ORDERED: *HR* Warfarin 3 MG TABLET PO ONE (20:37)
[2018-10-04] MEDS: Metoprolol 100 MG TABLET PO SCH (20:44)
[2018-10-05 06:57] LABS: Eosinophils # 0.1 K/mcL (0.0-0.6); Eosinophils % 2.9 %; Hematocrit 39.2 % (37.5-50.1); Hemoglobin 13.1 g/dL (12.9-16.9); Immature Granulocytes % 0.5 % (0-4); Lymphocytes # 0.7 K/mcL (0.6-4.6); Lymphocytes % 15.6 %; Mean Corpuscular HGB Conc 33.4 g/dL (31.6-35.5); Mean Corpuscular Hemoglobin 30.3 pg (28.0-33.3); Mean Corpuscular Volume 90.5 fL (83.0-100.0); Mean Platelet Volume 10.5 fL (9.4-12.4); Monocytes # 0.4 K/mcL (0.0-1.3); Monocytes % 9.4 %; Platelet Count 118 K/mcL (140-400); Red Blood Count 4.33 M/mcL (4.19-5.50); Red Cell Distribution Width 15.7 % (11.5-14.5); Segmented Neutrophils % 70.6 %
[2018-10-05 07:09] LABS: INR 1.6; Prothrombin Time 17.7 Seconds (9.4-12.1)
[2018-10-05 07:24] LABS: BUN/Creatinine Ratio 19 (6-26); Blood Urea Nitrogen 18 mg/dL (8-23); Calcium 9.4 mg/dL (8.6-10.3); Carbon Dioxide 28 mEq/L (23-29); Chloride 108 mEq/L (98-107); Glucose 115 mg/dL (70-105); Osmolality,Calculated 307 (280-300); Potassium 2.9 mEq/L (3.5-5.1); Sodium 147 mEq/L (136-145); eGFR For Non-African Americans > 60 (> 60)
[2018-10-05 07:26] LABS: Troponin I 0.05 ng/mL (< 0.04)
[2018-10-05] MEDS ORDERED: Loratadine 10 MG TABLET PO PRN (07:57)
[2018-10-05] MEDS ORDERED: Potassium Chloride 40 MEQ, Lidocaine 1% 2 ML in D5% in Water 500 ML IVPB ONE (08:05)
[2018-10-05] MEDS ORDERED: Lisinopril 20 MG TABLET PO SCH (09:00)
[2018-10-05] MEDS: Aspirin Enteric Coated 81 MG Tablet PO SCH (10:14)
[2018-10-05] MEDS: Cholecalciferol (D-3) 1,000 UNIT TABLET PO SCH (10:14)
[2018-10-05] MEDS: Metoprolol 100 MG TABLET PO SCH ×2 (10:14→22:00)
[2018-10-05] MEDS: Isosorbide MONOnitrate (24 HR) 30 MG TAB.ER.24H PO SCH (10:15)
[2018-10-05] MEDS: Furosemide 40 MG TABLET PO SCH (10:15)
[2018-10-05] MEDS: POTASSIUM BICARBONATE PO SCH (10:16)
[2018-10-05] MEDS: CIT AC PO SCH (10:16)
[2018-10-05] MEDS: Insulin LISPRO 300 UNITS/3 ML VIAL SQ SCH ×3 (10:16→17:42)
[2018-10-05] MEDS: Budesonide/Formoterol 160/4.5 1 PUFF INH IH SCH ×2 (10:34→20:12)
[2018-10-05] MEDS ORDERED: Potassium Chloride 20 MEQ in D5% in Water 1,000 ML IVC SCH (13:45)
--- NOTE | 2018-10-05 17:25 | Internal Med Progress Note ---
Hospitalist Progress Note - Encounter Date of Encounter: 10/05/18 Time of Encounter: 17:22 - Subjective Interval History: Patient was seen and examined at bedside currently denies any chest pain or shortness of breath I did discuss treating plan with the patient who verbalized understanding - Exam Vitals: Temp Pulse Resp BP Pulse Ox 98.0 F 63 15 161/75 97 10/05/18 17:03 10/05/18 17:03 10/05/18 17:03 10/05/18 17:03 10/05/18 17:03 Exam: General: Alert and oriented 3 in no acute distress Skin:Normal color, no rash, no lesions. HEENT:EOM, pupils equal, round and reactive. Cardiovascular:Normal S1 & S2, no rubs, murmurs or gallops. No JVD. Pulse regular. Lungs:Normal breath sounds, no wheezes or crackles. Abdomen:Soft, non-tender, no rigidity. Extremities: 1+ lower extremity edema Neurological:Normal cognition and motor skills. Pulses:Carotid and radial pulses normal +2. Rest of the physical exam is non contributory - Assessment and Plan (1) Heart failure, diastolic, with acute decompensation Current Visit: No Status: Acute Assessment and Plan: Mild CHF exacerbation in the setting of hypertensive emergency. -We will give patient one-time dose of Lasix 20 mg IV push -Continue with home dose Lasix 10/05 Patient was given IV Lasix currently hypernatremic we will hold Lasix for now and give IV fluid Monitor intake and output Echo is pending at this time Is not in any respiratory distress Blood pressure control (2) COPD (chronic obstructive pulmonary disease) Current Visit: No Status: Chronic Assessment and Plan: No evidence of an acute exacerbation. Continue home inhalers. (3) Afib Current Visit: No Status: Chronic Assessment and Plan: History of atrial fibrillation rate controlled on anticoagulation with warfarin. -Continue home medications and warfarin. 10/05 Currently rate controlled we will continue with warfarin metoprolol (4) DVT prophylaxis Current Visit: No Status: Acute Assessment and Plan: Continue warfarin (5) DANNIELLE (obstructive sleep apnea) Current Visit: No Status: Chronic Assessment and Plan: History of obstructive sleep apnea on CPAP at night. Continue CPAP at bedtime (6) Elevated troponin Current Visit: Yes Status: Acute Assessment and Plan: Elevated troponin of 0.04 in the setting of hypertensive emergency. No EKG changes had noted above, no reports of any chest pain. Suspect demand ischemia -We will trend troponin -Monitor on telemetry Troponins remained flat no chest pain reported suspect this is demand ischemia from hypertensive emergency Continue cardiac monitoring (7) Hypertensive emergency Current Visit: Yes Status: Acute Assessment and Plan: Patient presents with elevated blood pressure of greater than 200 systolic at home. Found to have a systolic blood pressure of >190 associated with history of dyspnea and lower extremity edema concerning for mild CHF exacerbation. Found to have a elevated troponin of 0.04. No reports of chest pain or EKG changes. Patient received Lopressor and amlodipine in the ED. Was given a one- time dose of IV labetalol 5 mg on the floor and subsequently achieved a target blood pressure of 175. -Continue with blood pressure control with a target systolic blood pressure of 175 within the first 24 hours. Patient seems to respond to low-dose labetalol. We will give as needed. -Treat mild CHF exacerbation. -Elevated troponin likely demand given the absence of any EKG changes or reports of chest pain. We will continue to trend. 10/05 Blood pressure improved this morning after morning medications Continue blood pressure control target blood pressure systolic of 175- hydralazine as needed for systolic greater than 180 Troponins were elevated secondary to demand ischemia continue to monitor Resumed home medications of lisinopril and metoprolol we will increase lisinopril to 20 mg twice a day (8) Hypernatremia Current Visit: Yes Status: Acute Assessment and Plan: Sodium is 147 most likely from diuretics we will hold Lasix at this time and give dextrose with 20 KCl 1 L We will monitor sodium closely (9) Hypokalemia Current Visit: Yes Status: Acute Assessment and Plan: Likely secondary to diuretic use magnesium is stable at this time We will replace and monitor - Time Spent with Patient Total time spent is greater than 50% in coordination of care (as documented) at patient's floor/unit and/or counseling patient: Internal Medicine: Result - Labs CBC & Chem 7: 10/05/18 06:38 10/05/18 06:38 Labs: Short CBC 10/05/18 Range/Units 06:38 WBC 4.2 L (4.3-11.1) K/mcL Hgb 13.1 (12.9-16.9) g/dL Hct 39.2 (37.5-50.1) % Plt Count 118 L (140-400) K/mcL Neutrophils # 3.0 (1.6-8.9) K/mcL BMP 10/05/18 06:38 Sodium 147 H Potassium 2.9 L Chloride 108 H Carbon Dioxide 28 BUN 18 Creatinine 0.95 Glucose 115 H Calcium 9.4 Cardiac Enzymes 10/05/18 Range/Units 06:38 Troponin I 0.05 H* (< 0.04) ng/mL - ABG Interpretation ABG results: PT/INR, D-dimer PT 17.7 Seconds (9.4-12.1) H 10/05/18 06:38 Consult Discharge Plan - Plan Referrals: Dulce Maria Cabral MD [Primary Care Provider] - (2) COPD (chronic obstructive pulmonary disease) Qualifiers: COPD type: emphysema Emphysema type: panlobular Qualified 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 (3) Afib Qualifiers: Atrial fibrillation type: unspecified Qualified Code(s): I48.91 - Unspecified atrial fibrillation
[2018-10-05] MEDS ORDERED: Furosemide 20 MG TABLET PO SCH (18:00)
[2018-10-05] MEDS ORDERED: *HR* Warfarin 3 MG TABLET PO ONE (18:00)
[2018-10-05 20:33] LABS: BUN/Creatinine Ratio 17 (6-26); Blood Urea Nitrogen 21 mg/dL (8-23); Carbon Dioxide 27 mEq/L (23-29); Chloride 108 mEq/L (98-107); Glucose 189 mg/dL (70-105); Osmolality,Calculated 302 (280-300); Potassium 3.2 mEq/L (3.5-5.1); Sodium 142 mEq/L (136-145); eGFR For Non-African Americans 57 (> 60)
[2018-10-05] MEDS: Lisinopril 20 MG TABLET PO SCH (22:00)
[2018-10-06 05:10] LABS: Basophils % 0.9 %; Eosinophils # 0.1 K/mcL (0.0-0.6); Eosinophils % 2.9 %; Hematocrit 35.5 % (37.5-50.1); Hemoglobin 11.6 g/dL (12.9-16.9); Immature Granulocytes % 0.5 % (0-4); Lymphocytes # 0.7 K/mcL (0.6-4.6); Lymphocytes % 14.9 %; Mean Corpuscular HGB Conc 32.7 g/dL (31.6-35.5); Mean Corpuscular Hemoglobin 29.9 pg (28.0-33.3); Mean Corpuscular Volume 91.5 fL (83.0-100.0); Mean Platelet Volume 10.9 fL (9.4-12.4); Monocytes # 0.4 K/mcL (0.0-1.3); Monocytes % 9.7 %; Neutrophils # 3.1 K/mcL (1.6-8.9); Platelet Count 118 K/mcL (140-400); Red Blood Count 3.88 M/mcL (4.19-5.50); Red Cell Distribution Width 15.8 % (11.5-14.5); Segmented Neutrophils % 71.1 %
[2018-10-06 05:18] LABS: INR 1.7; Prothrombin Time 19.6 Seconds (9.4-12.1)
[2018-10-06 05:28] LABS: BUN/Creatinine Ratio 18 (6-26); Blood Urea Nitrogen 23 mg/dL (8-23); Carbon Dioxide 28 mEq/L (23-29); Chloride 107 mEq/L (98-107); Glucose 125 mg/dL (70-105); Osmolality,Calculated 299 (280-300); Potassium 3.3 mEq/L (3.5-5.1); Sodium 142 mEq/L (136-145); eGFR For Non-African Americans 54 (> 60)
[2018-10-06] MEDS: Budesonide/Formoterol 160/4.5 1 PUFF INH IH SCH ×2 (07:47→21:59)
[2018-10-06] MEDS: Insulin LISPRO 300 UNITS/3 ML VIAL SQ SCH ×3 (08:20→16:19)
[2018-10-06] MEDS: Furosemide 40 MG TABLET PO SCH (08:21)
[2018-10-06] MEDS: Metoprolol 100 MG TABLET PO SCH ×2 (08:21→22:08)
[2018-10-06] MEDS: Lisinopril 20 MG TABLET PO SCH ×2 (08:22→22:09)
[2018-10-06] MEDS: Cholecalciferol (D-3) 1,000 UNIT TABLET PO SCH (08:22)
[2018-10-06] MEDS: Isosorbide MONOnitrate (24 HR) 30 MG TAB.ER.24H PO SCH (08:22)
[2018-10-06] MEDS: POTASSIUM BICARBONATE PO SCH (08:23)
[2018-10-06] MEDS: CIT AC PO SCH (08:23)
[2018-10-06] MEDS: Aspirin Enteric Coated 81 MG Tablet PO SCH (08:23)
--- NOTE | 2018-10-06 15:56 | Internal Med Progress Note ---
Hospitalist Progress Note - Encounter Date of Encounter: 10/06/18 Time of Encounter: 15:55 - Subjective Interval History: Patient was seen and examined at bedside currently denies any chest pain or shortness of breath, patient does have lower extremity edema bilaterally 1-2+ pitting edema to knee. Does not appear to be in respiratory distress expr esses concern about fluid overload chest x-ray obtained which does show some mild vascular congestion. Discussed with the patient and will diurese patient overnight and discharge in a.m. if electrolytes are stable as well as blood pressure. Patient Verbalized understanding - Exam Vitals: Temp Pulse Resp BP Pulse Ox 97.6 F 55 16 176/90 98 10/06/18 15:38 10/06/18 15:38 10/06/18 15:38 10/06/18 15:38 10/06/18 15:38 Exam: General: Alert and oriented 3 in no acute distress Skin:Normal color, no rash, no lesions. HEENT:EOM, pupils equal, round and reactive. Cardiovascular:Normal S1 & S2, no rubs, murmurs or gallops. No JVD. Pulse regular. Lungs:Normal breath sounds, no wheezes or crackles. Abdomen:Soft, non-tender, no rigidity. Extremities: +1+2 lower extremity edema Neurological:Normal cognition and motor skills. Pulses:Carotid and radial pulses normal +2. Rest of the physical exam is non contributory - Assessment and Plan (1) Hypertensive emergency Current Visit: Yes Status: Acute Assessment and Plan: Patient presents with elevated blood pressure of greater than 200 systolic at home. Found to have a systolic blood pressure of >190 associated with history of dyspnea and lower extremity edema concerning for mild CHF exacerbation. Found to have a elevated troponin of 0.04. No reports of chest pain or EKG changes. Patient received Lopressor and amlodipine in the ED. Was given a one- time dose of IV labetalol 5 mg on the floor and subsequently achieved a target b lood pressure of 175. -Treat mild CHF exacerbation. Blood pressure improved Continue blood pressure control target blood pressure systolic of 175- hydralazine as needed for systolic greater than 180 Troponins were elevated secondary to demand ischemia continue to monitor Resumed home medications of lisinopril and metoprolol we will increase lisinopril to 20 mg twice a day (2) Heart failure, diastolic, with acute decompensation Current Visit: No Status: Acute Assessment and Plan: Patient was hypernatremic and was given fluids overnight -chest x-ray does show some mild congestive heart failure with a small right pleural effusion we will give 20 mg IV Lasix and continue with home Lasix Echo was completed Impressions: LVEF 60-65%. Normal LV chamber size and systolic function. Mild concentric left ventricular hypertrophy. Indeterminate diastolic function. Mildly dilated left atrium. Normal right ventricular structure and function. No significant valvular dysfunction. Mild pulmonary hypertension. Does not appear to be in any respiratory distress and denies any chest pain Blood pressure Stable at this time He does have lower extremity swelling (3) COPD (chronic obstructive pulmonary disease) Current Visit: No Status: Chronic Assessment and Plan: No evidence of an acute exacerbation. Continue home inhalers. (4) Afib Current Visit: No Status: Chronic Assessment and Plan: History of atrial fibrillation rate controlled on anticoagulation with warfarin. -Continue home medications and warfarin. (5) DVT prophylaxis Current Visit: No Status: Acute Assessment and Plan: Continue warfarin (6) DANNIELLE (obstructive sleep apnea) Current Visit: No Status: Chronic Assessment and Plan: History of obstructive sleep apnea on CPAP at night. Continue CPAP at bedtime (7) Elevated troponin Current Visit: Yes Status: Acute Assessment and Plan: Elevated troponin of 0.04 in the setting of hypertensive emergency. No EKG changes had noted above, no reports of any chest pain. Suspect demand ischemia Troponins remained flat no chest pain reported suspect this is demand ischemia from hypertensive emergency Continue cardiac monitoring (8) Hypernatremia Current Visit: Yes Status: Acute Assessment and Plan: Sodium was 147 yesterday improved today after receiving fluid we will continue to monitor (9) Hypokalemia Current Visit: Yes Status: Acute Assessment and Plan: Likely secondary to diuretic use magnesium is stable at this time We will replace and monitor Potassium 20 mEq twice a day - Time Spent with Patient Total time spent is greater than 50% in coordination of care (as documented) at patient's floor/unit and/or counseling patient: Internal Medicine: Result - Labs CBC & Chem 7: 10/06/18 03:57 10/06/18 03:57 Labs: Short CBC 10/06/18 Range/Units 03:57 WBC 4.4 (4.3-11.1) K/mcL Hgb 11.6 L D (12.9-16.9) g/dL Hct 35.5 L (37.5-50.1) % Plt Count 118 L (140-400) K/mcL Neutrophils # 3.1 (1.6-8.9) K/mcL BMP 10/05/18 10/06/18 19:58 03:57 Sodium 142 142 Potassium 3.2 L 3.3 L Chloride 108 H 107 Carbon Dioxide 27 28 BUN 21 23 Creatinine 1.24 1.29 Glucose 189 H 125 H Calcium 9.0 9.0 - ABG Interpretation ABG results: PT/INR, D-dimer PT 19.6 Seconds (9.4-12.1) H 10/06/18 03:57 - Impressions Impressions Echocardiogram 10/05/18 18:45 Impressions: LVEF 60-65%. Normal LV chamber size and systolic function. Mild concentric left ventricular hypertrophy. Indeterminate diastolic function. Mildly dilated left atrium. Normal right ventricular structure and function. No significant valvular dysfunction. Mild pulmonary hypertension. Left Ventricular Wall Motion: Rest Echo Findings All wall segments showed normal motion. Findings: Study Quality * Technically adequate exam. ECG Findings * Atrial fibrillation. Left Ventricle * LVEF 60-65%. * Normal LV chamber size and systolic function. * Mild concentric left ventricular hypertrophy. * Indeterminate diastolic function. Right Ventricle * Normal right ventricular structure and function. Left Atrium * Mildly dilated left atrium. Right Atrium * Normal right atrial size. Interatrial Septum * Interatrial septum not well evaluated. Aortic Valve * Moderately calcified aortic valve leaflets. * Moderately sclerotic aortic valve leaflets. * No aortic stenosis. * No aortic regurgitation. Mitral Valve * Normal mitral valve structure. * No mitral stenosis. * Trace mitral regurgitation. * Mild mitral annular calcification Tricuspid Valve * Normal tricuspid valve structure. * No tricuspid stenosis. * Trace tricuspid regurgitation. * Estimated RVSP is 40 mmHg. * Estimated RA pressure is 15 mmHg. * Mild pulmonary hypertension. Pulmonic Valve * Pulmonic valve is not well visualized. * No pulmonic stenosis. * No pulmonic regurgitation. Aorta * Normally sized aortic root. Pericardium * The pericardium appears normal. IVC * The IVC is dilated. * < 50% respiratory change. Consult Discharge Plan - Plan Referrals: Dulce Maria Cabral MD [Primary Care Provider] - (3) COPD (chronic obstructive pulmonary disease) Qualifiers: COPD type: emphysema Emphysema type: panlobular Qualified 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 (4) Afib Qualifiers: Atrial fibrillation type: unspecified Qualified Code(s): I48.91 - Unspecified atrial fibrillation
[2018-10-06] MEDS ORDERED: Furosemide 20 MG/2 ML VIAL IVP ONE (16:18)
[2018-10-06] MEDS ORDERED: Furosemide 40 MG/4 ML VIAL IVP SCH (17:00)
[2018-10-06] MEDS ORDERED: *HR* Warfarin 3 MG TABLET PO ONE (18:00)
[2018-10-07 06:03] LABS: Basophils % 0.7 %; Eosinophils # 0.1 K/mcL (0.0-0.6); Eosinophils % 3.3 %; Hematocrit 35.7 % (37.5-50.1); Hemoglobin 11.5 g/dL (12.9-16.9); Immature Granulocytes % 0.5 % (0-4); Lymphocytes # 0.7 K/mcL (0.6-4.6); Lymphocytes % 15.2 %; Mean Corpuscular HGB Conc 32.2 g/dL (31.6-35.5); Mean Corpuscular Hemoglobin 30.2 pg (28.0-33.3); Mean Corpuscular Volume 93.7 fL (83.0-100.0); Mean Platelet Volume 10.8 fL (9.4-12.4); Monocytes # 0.4 K/mcL (0.0-1.3); Monocytes % 8.7 %; Neutrophils # 3.1 K/mcL (1.6-8.9); Platelet Count 118 K/mcL (140-400); Red Blood Count 3.81 M/mcL (4.19-5.50); Segmented Neutrophils % 71.6 %
[2018-10-07 06:12] LABS: INR 2.1; Prothrombin Time 23.3 Seconds (9.4-12.1)
[2018-10-07 06:24] LABS: BUN/Creatinine Ratio 22 (6-26); Blood Urea Nitrogen 28 mg/dL (8-23); Calcium 8.9 mg/dL (8.6-10.3); Carbon Dioxide 27 mEq/L (23-29); Chloride 108 mEq/L (98-107); Glucose 130 mg/dL (70-105); Osmolality,Calculated 303 (280-300); Potassium 3.3 mEq/L (3.5-5.1); Sodium 143 mEq/L (136-145); eGFR For Non-African Americans 54 (> 60)
[2018-10-07] MEDS: Insulin LISPRO 300 UNITS/3 ML VIAL SQ SCH ×3 (08:16→16:52)
[2018-10-07] MEDS: Isosorbide MONOnitrate (24 HR) 30 MG TAB.ER.24H PO SCH (08:27)
[2018-10-07] MEDS: Aspirin Enteric Coated 81 MG Tablet PO SCH (08:27)
[2018-10-07] MEDS: Cholecalciferol (D-3) 1,000 UNIT TABLET PO SCH (08:27)
[2018-10-07] MEDS: Metoprolol 100 MG TABLET PO SCH ×2 (08:27→21:59)
[2018-10-07] MEDS: Lisinopril 20 MG TABLET PO SCH ×2 (08:27→22:00)
[2018-10-07] MEDS: POTASSIUM BICARBONATE PO SCH (08:28)
[2018-10-07] MEDS: CIT AC PO SCH (08:28)
--- NOTE | 2018-10-07 08:53 | Internal Med Progress Note ---
Hospitalist Progress Note - Encounter Date of Encounter: 10/07/18 Time of Encounter: 08:52 - Subjective Interval History: Patient was seen and examined at bedside currently denies any chest pain or shortness of breath, patient does have lower extremity edema bilaterally 1 plus pitting edema. Patient did have some episodes of systolic blood pressures in the 200s patient's concerned about taking patient home. We will consult nephrology concerning blood pressure control. - Exam Vitals: Temp Pulse Resp BP Pulse Ox 97.9 F 68 18 201/81 95 10/07/18 07:07 10/07/18 07:07 10/07/18 07:07 10/07/18 07:07 10/07/18 07:07 Exam: General: Alert and oriented 3 in no acute distress Skin:Normal color, no rash, no lesions. HEENT:EOM, pupils equal, round and reactive. Cardiovascular:Normal S1 & S2, no rubs, murmurs or gallops. No JVD. Pulse regular. Lungs:Normal breath sounds, no wheezes or crackles. Abdomen:Soft, non-tender, no rigidity. Extremities: +1+2 lower extremity edema Neurological:Normal cognition and motor skills. Pulses:Carotid and radial pulses normal +2. Rest of the physical exam is non contributory - Assessment and Plan (1) Hypertensive emergency Current Visit: Yes Status: Acute Assessment and Plan: Patient presents with elevated blood pressure of greater than 200 systolic at home. Found to have a systolic blood pressure of >190 associated with history of dyspnea and lower extremity edema concerning for mild CHF exacerbation. Found to have a elevated troponin of 0.04. No reports of chest pain or EKG changes. Patient received Lopressor and amlodipine in the ED. Was given a one- time dose of IV labetalol 5 mg on the floor and subsequently achieved a target blood pressure of 175. -Treat mild CHF exacerbation. Blood pressure improved Continue blood pressure control target blood pressure systolic of 175-hydralaz ine as needed for systolic greater than 180 Troponins were elevated secondary to demand ischemia continue to monitor Resumed home medications of lisinopril and metoprolol we will increase lisinopril to 20 mg twice a day Nephrology has been consulted we will initiate on Norvasc 5 mg daily and monitor . does not want take patient home at this time would like to monitor overnight due to elevations in blood pressure during the night. (2) Heart failure, diastolic, with acute decompensation Current Visit: No Status: Acute Assessment and Plan: Seems to be improved today swelling is down we will continue with home Lasix Echo was completed Impressions: LVEF 60-65%. Normal LV chamber size and systolic function. Mild concentric left ventricular hypertrophy. Indeterminate diastolic function. Mildly dilated left atrium. Normal right ventricular structure and function. No significant valvular dysfunction. Mild pulmonary hypertension. Does not appear to be in any respiratory distress and denies any chest pain Blood pressure was elevated this morning we will consult nephrology (3) COPD (chronic obstructive pulmonary disease) Current Visit: No Status: Chronic Assessment and Plan: No evidence of an acute exacerbation. Continue home inhalers. (4) Afib Current Visit: No Status: Chronic Assessment and Plan: History of atrial fibrillation rate controlled on anticoagulation with warfarin. -Continue home medications and warfarin. (5) DVT prophylaxis Current Visit: No Status: Acute Assessment and Plan: Continue warfarin (6) DANNIELLE (obstructive sleep apnea) Current Visit: No Status: Chronic Assessment and Plan: History of obstructive sleep apnea on CPAP at night. Continue CPAP at bedtime (7) Elevated troponin Current Visit: Yes Status: Acute Assessment and Plan: Elevated troponin of 0.04 in the setting of hypertensive emergency. No EKG changes had noted above, no reports of any chest pain. Suspect demand ischemia Troponins remained flat no chest pain reported suspect this is demand ischemia from hypertensive emergency Continue cardiac monitoring (8) Hypernatremia Current Visit: Yes Status: Acute Assessment and Plan: Resolved (9) Hypokalemia Current Visit: Yes Status: Acute Assessment and Plan: Likely secondary to diuretic use magnesium is stable at this time We will replace and monitor Potassium 20 mEq twice a day - Time Spent with Patient Total time spent is greater than 50% in coordination of care (as documented) at patient's floor/unit and/or counseling patient: Internal Medicine: Result - Labs CBC & Chem 7: 10/07/18 04:36 10/07/18 04:36 Labs: Short CBC 10/07/18 Range/Units 04:36 WBC 4.3 (4.3-11.1) K/mcL Hgb 11.5 L (12.9-16.9) g/dL Hct 35.7 L (37.5-50.1) % Plt Count 118 L (140-400) K/mcL Neutrophils # 3.1 (1.6-8.9) K/mcL BMP 10/07/18 04:36 Sodium 143 Potassium 3.3 L Chloride 108 H Carbon Dioxide 27 BUN 28 H Creatinine 1.30 Glucose 130 H Calcium 8.9 - ABG Interpretation ABG results: PT/INR, D-dimer PT 23.3 Seconds (9.4-12.1) H 10/07/18 04:36 - Impressions Impressions Echocardiogram 10/05/18 18:45 Impressions: LVEF 60-65%. Normal LV chamber size and systolic function. Mild concentric left ventricular hypertrophy. Indeterminate diastolic function. Mildly dilated left atrium. Normal right ventricular structure and function. No significant valvular dysfunction. Mild pulmonary hypertension. Left Ventricular Wall Motion: Rest Echo Findings All wall segments showed normal motion. Findings: Study Quality * Technically adequate exam. ECG Findings * Atrial fibrillation. Left Ventricle * LVEF 60-65%. * Normal LV chamber size and systolic function. * Mild concentric left ventricular hypertrophy. * Indeterminate diastolic function. Right Ventricle * Normal right ventricular structure and function. Left Atrium * Mildly dilated left atrium. Right Atrium * Normal right atrial size. Interatrial Septum * Interatrial septum not well evaluated. Aortic Valve * Moderately calcified aortic valve leaflets. * Moderately sclerotic aortic valve leaflets. * No aortic stenosis. * No aortic regurgitation. Mitral Valve * Normal mitral valve structure. * No mitral stenosis. * Trace mitral regurgitation. * Mild mitral annular calcification Tricuspid Valve * Normal tricuspid valve structure. * No tricuspid stenosis. * Trace tricuspid regurgitation. * Estimated RVSP is 40 mmHg. * Estimated RA pressure is 15 mmHg. * Mild pulmonary hypertension. Pulmonic Valve * Pulmonic valve is not well visualized. * No pulmonic stenosis. * No pulmonic regurgitation. Aorta * Normally sized aortic root. Pericardium * The pericardium appears normal. IVC * The IVC is dilated. * < 50% respiratory change. Chest X-Ray 10/06/18 12:18 IMPRESSION: Mild congestive heart failure with small right pleural effusion. D/ / Marcie Licea MD / Marcie Licea MD Interpreting Provider: Marcie Licea MD Consult Discharge Plan - Plan Referrals: Dulce Maria Cabral MD [Primary Care Provider] - (3) COPD (chronic obstructive pulmonary disease) Qualifiers: COPD type: emphysema Emphysema type: panlobular Qualified 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 (4) Afib Qualifiers: Atrial fibrillation type: unspecified Qualified Code(s): I48.91 - Unspecified atrial fibrillation
[2018-10-07] MEDS: Budesonide/Formoterol 160/4.5 1 PUFF INH IH SCH ×2 (08:54→23:57)
--- NOTE | 2018-10-07 10:31 | Nephrology Consult Note ---
Date of Encounter: 10/07/18 Time of Encounter: 10:30 Assessment and Plan (1) Hypertensive emergency Current Visit: Yes Status: Acute Patient blood pressure remains very difficult to control. We will add back his amlodipine and have the primary team titrate as needed. At the time my evaluation he denies any other symptoms. (2) Hypertension Current Visit: Yes Status: Chronic Qualifiers: Hypertension type: unspecified Qualified Code(s): I10 - Essential (primary) hypertension (3) Elevated troponin Current Visit: Yes Status: Acute Per the primary team. The patient denies chest pain at the time my evaluation. (4) Anemia Current Visit: No Status: Chronic Mild asymptomatic and per the primary team. Qualifiers: Qualified Code(s): D64.9 - Anemia, unspecified History of Present Illness - Reason for Consult Consult date: 10/07/18 accelerated hypertension - Chief Complaint uncontrolled hypertension. - History of Present Illness Mr. Lora is a 78-year-old gentleman with a history of hypertension who presents with chest pain and was found to have accelerated hypertension. At the time my evaluation the patient denied chest pain or shortness of breath. His is at the bedside. They report that her blood pressures been uncontrolled since about April of last year when the patient was hospitalized and his amlodipine was discontinued. At the time my evaluation patient also denies nausea, vomiting, diarrhea, or any other complaints. He wants to go home. 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, skin CA removed, heart cath x2 - Social History Smoking Status: Former smoker Smokeless Tobacco Status: No Alcohol use: rarely Drug use: none - Family History Father Living Status: Hx Family Endocrine Disorder: Yes (dm) Mother Hx Family Cancer: Yes (breast and pancreatic) Medications and Allergies Aspirin Enteric Coated [Aspirin EC] 81 mg PO DAILY 03/26/15 [History] Pravastatin Sodium [Pravachol] 20 mg PO QPM 03/26/15 [History] Albuterol Sulfate [Proair Respiclick] 2 puff IH Q4HR PRN 12/24/16 [History] Budesonide/Formoterol 160/4.5 [Symbicort 160/4.5] 2 puff IH BID 12/24/16 [History] Cholecalciferol (D-3) [Vitamin D] 1,000 unit PO DAILY 04/18/18 [History] Gemfibrozil [Lopid] 600 mg PO BID 04/18/18 [History] Glimepiride [Amaryl] 1 mg PO DAILY 04/18/18 [History] Metoprolol [Lopressor] 150 mg PO BID 04/18/18 [History] Montelukast [Singulair] 10 mg PO HS 04/18/18 [History] Warfarin [Coumadin] 2.5 mg PO Q48H 04/18/18 [History] Warfarin [Coumadin] 3 mg PO Q48H 04/18/18 [History] Insulin DETEMIR [Levemir Flextouch] 7 unit SQ HS 09/04/18 [History] Pantoprazole Sodium 40 mg PO DAILY #30 tablet. 10/02/18 [Rx] Fexofenadine HCl 180 mg PO DAILY PRN 10/04/18 [History] Furosemide [Lasix] 20 mg PO QPM 10/04/18 [History] Furosemide [Lasix] 40 mg PO QAM 10/04/18 [History] Insulin LISPRO [Humalog Kwikpen U-100] 0 - 2 unit SQ QPM 10/04/18 [History] Isosorbide MONOnitrate [Isosorbide Mononitrate ER] 30 mg PO DAILY 10/04/18 [History] Lisinopril [Zestril] 10 mg PO QPM 10/04/18 [History] Lisinopril [Zestril] 20 mg PO QAM 10/04/18 [History] Potassium Bicarbonate/Cit AC [Effer-K 10 Meq Tablet Eff] 10 meq PO QAM 10/04/18 [History] Allergy/AdvReac Type Severity Reaction Status Date / Time clonidine AdvReac Dry Mucus Verified 09/04/18 11:39 Membranes Iodinated Contrast- Oral and AdvReac Flushing Verified 09/04/18 11:39 IV Dye Review of Systems All Systems: reviewed and no additional remarkable complaints except as stated (As documented in history of present illness) Exam - Vital Signs Vital signs: Initial Vital Signs Temp Pulse Resp BP Pulse Ox 98.0 F 66 17 195/100 97 10/03/18 17:11 10/03/18 17:11 10/03/18 17:11 10/03/18 17:11 10/03/18 17:11 Vital Signs - Last 8 Hours Temp Pulse Resp BP Pulse Ox 10/07/18 08:54 18 98 10/07/18 07:07 97.9 F 68 18 201/81 95 10/07/18 03:22 98.1 F 67 16 179/79 94 Intake and Output 10/06/18 10/07/18 10/07/18 23:59 07:59 15:59 Intake Total 1532 / 1532 360 / 360 Balance 1532 / 1532 360 / 360 Intake: IV Fluids 1532 / 1532 Oral 360 / 360 Other: Meal Breakfast Percent of Meal Consumed 100% Weight 112.4 kg Blood Glucose* 160 108 Patient Weight 10/07/18 23:59 Weight 112.4 kg - General Appearance General appearance: well-developed, well-nourished EENT: ATNC Neck: supple Respiratory: clear Cardiology: edema, regular rate Gastrointestinal: no tenderness, obese Integumentary: warm and dry Neurologic: alert and oriented x3 Musculoskeletal: no cyanosis Psychiatric: mood/affect appropriate Results - Lab Results 10/07/18 04:36 10/08/18 05:24 Most recent lab results Calcium 8.9 mg/dL (8.6-10.3) 10/07/18 04:36 Magnesium 1.8 mg/dL (1.6-2.6) 10/04/18 08:01 Consult Discharge Plan - Plan Referrals: Dulce Maria Cabral MD [Primary Care Provider] -
[2018-10-07] MEDS: Furosemide 40 MG TABLET PO SCH (12:10)
[2018-10-07] MEDS: amLODIPine 5 MG TABLET PO SCH (14:59)
[2018-10-07] MEDS ORDERED: *HR* Warfarin 2.5 MG TABLET PO ONE (18:00)
[2018-10-08 07:39] LABS: INR 2.3; Prothrombin Time 25.7 Seconds (9.4-12.1)
[2018-10-08 07:42] LABS: BUN/Creatinine Ratio 28 (6-26); Blood Urea Nitrogen 32 mg/dL (8-23); Calcium 9.4 mg/dL (8.6-10.3); Carbon Dioxide 27 mEq/L (23-29); Chloride 109 mEq/L (98-107); Glucose 126 mg/dL (70-105); Osmolality,Calculated 304 (280-300); Potassium 3.3 mEq/L (3.5-5.1); Sodium 143 mEq/L (136-145); eGFR For Non-African Americans > 60 (> 60)
[2018-10-08] MEDS: Budesonide/Formoterol 160/4.5 1 PUFF INH IH SCH ×2 (07:54→21:53)
[2018-10-08] MEDS: Metoprolol 100 MG TABLET PO SCH ×2 (07:59→21:45)
[2018-10-08] MEDS: Isosorbide MONOnitrate (24 HR) 30 MG TAB.ER.24H PO SCH ×2 (07:59→12:33)
[2018-10-08] MEDS: Aspirin Enteric Coated 81 MG Tablet PO SCH (07:59)
[2018-10-08] MEDS: Furosemide 40 MG TABLET PO SCH (07:59)
[2018-10-08] MEDS: Cholecalciferol (D-3) 1,000 UNIT TABLET PO SCH (08:00)
[2018-10-08] MEDS ORDERED: amLODIPine 5 MG TABLET PO ONE (08:00)
[2018-10-08] MEDS: POTASSIUM BICARBONATE PO SCH (08:00)
[2018-10-08] MEDS: amLODIPine 5 MG TABLET PO SCH (08:00)
[2018-10-08] MEDS: CIT AC PO SCH (08:00)
[2018-10-08] MEDS: Insulin LISPRO 300 UNITS/3 ML VIAL SQ SCH ×3 (08:00→15:49)
[2018-10-08] MEDS: Lisinopril 20 MG TABLET PO SCH ×2 (08:00→21:46)
[2018-10-08 11:49] LABS: Magnesium 1.8 mg/dL (1.6-2.6)
[2018-10-08] MEDS: aMILoride 5 MG TABLET PO SCH (12:33)
--- NOTE | 2018-10-08 14:50 | Internal Med Progress Note ---
Hospitalist Progress Note - Encounter Date of Encounter: 10/08/18 Time of Encounter: 12:00 - Subjective Interval History: Patient was seen and examined at bedside currently denies any chest pain or shortness of breath, patient does have lower extremity edema bilaterally 1 plus pitting edema. Continues to have spikes in blood pressure-no chest pain or n eurological changes discuss treatment plan with the patient who verbalized understanding appreciate nephrology's recommendations - Exam Vitals: Temp Pulse Resp BP Pulse Ox 97.6 F 58 16 173/80 96 10/08/18 11:10 10/08/18 11:10 10/08/18 11:10 10/08/18 11:10 10/08/18 11:10 Exam: General: Alert and oriented 3 in no acute distress Skin:Normal color, no rash, no lesions. HEENT:EOM, pupils equal, round and reactive. Cardiovascular:Normal S1 & S2, no rubs, murmurs or gallops. No JVD. Pulse regular. Lungs:Normal breath sounds, no wheezes or crackles. Abdomen:Soft, non-tender, no rigidity. Extremities: +1+2 lower extremity edema Neurological:Normal cognition and motor skills. Pulses:Carotid and radial pulses normal +2. Rest of the physical exam is non contributory - Assessment and Plan (1) Hypertensive emergency Current Visit: Yes Status: Acute Assessment and Plan: Blood pressure improved-however continues to have spikes in systolic pressure over 200 Continue blood pressure control target blood pressure systolic of 175- hydralazine as needed for systolic greater than 180 Troponins were elevated secondary to demand ischemia continue to monitor Resumed home medications of lisinopril and metoprolol we will increase lisinopril to 20 mg twice a day Nephrology has been consulted we will initiate on Norvasc 5 mg daily . Continues to experience spikes in blood pressure overnight. Increase Norvasc to 10 mg daily appreciate nephrology's recommendations adding amiloride as well as increasing Imdur to 60 mg daily We will continue to monitor closely (2) Heart failure, diastolic, with acute decompensation Current Visit: No Status: Acute Assessment and Plan: Seems to be improved today swelling is down we will continue with home Lasix- nephrology did amiloride Echo was completed Impressions: LVEF 60-65%. Normal LV chamber size and systolic function. Mild concentric left ventricular hypertrophy. Indeterminate diastolic function. Mildly dilated left atrium. Normal right ventricular structure and function. No significant valvular dysfunction. Mild pulmonary hypertension. Does not appear to be in any respiratory distress and denies any chest pain Appreciate nephrology's recommendations Monitor intake and output daily weights (3) COPD (chronic obstructive pulmonary disease) Current Visit: No Status: Chronic Assessment and Plan: No evidence of an acute exacerbation. Continue home inhalers. (4) Afib Current Visit: No Status: Chronic Assessment and Plan: History of atrial fibrillation rate controlled on anticoagulation with warfarin. -Continue home medications and warfarin. (5) DVT prophylaxis Current Visit: No Status: Acute Assessment and Plan: Continue warfarin (6) DANNIELLE (obstructive sleep apnea) Current Visit: No Status: Chronic Assessment and Plan: History of obstructive sleep apnea on CPAP at night. Continue CPAP at bedtime (7) Elevated troponin Current Visit: Yes Status: Acute Assessment and Plan: Elevated troponin of 0.04 in the setting of hypertensive emergency. No EKG changes had noted above, no reports of any chest pain. Suspect demand ischemia Troponins remained flat no chest pain reported suspect this is demand ischemia from hypertensive emergency Continue cardiac monitoring (8) Hypernatremia Current Visit: Yes Status: Acute Assessment and Plan: Resolved (9) Hypokalemia Current Visit: Yes Status: Acute Assessment and Plan: Likely secondary to diuretic use magnesium is stable at this time We will replace and monitor Potassium 20 mEq twice a day - Time Spent with Patient Total time spent is greater than 50% in coordination of care (as documented) at patient's floor/unit and/or counseling patient: Internal Medicine: Result - Labs CBC & Chem 7: 10/07/18 04:36 10/08/18 05:24 Labs: BMP 10/08/18 05:24 Sodium 143 Potassium 3.3 L Chloride 109 H Carbon Dioxide 27 BUN 32 H Creatinine 1.15 Glucose 126 H Calcium 9.4 - ABG Interpretation ABG results: PT/INR, D-dimer PT 25.7 Seconds (9.4-12.1) H 10/08/18 05:24 Consult Discharge Plan - Plan Referrals: Dulce Maria Cabral MD [Primary Care Provider] - (3) COPD (chronic obstructive pulmonary disease) Qualifiers: COPD type: emphysema Emphysema type: panlobular Qualified 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 (4) Afib Qualifiers: Atrial fibrillation type: unspecified Qualified Code(s): I48.91 - Unspecified atrial fibrillation
--- NOTE | 2018-10-08 15:28 | Nephrology Progress Note ---
Date of Encounter: 10/08/18 Time of Encounter: 15:25 - Assessment and Plan (1) Hypertension Current Visit: Yes Status: Chronic Patient presented with hypertensive emergency. His blood pressure has been very difficult to control. This morning his blood pressure remains significantly elevated despite 10 mg amlodipine yesterday. We will add amiloride 5 mg to his regimen for hypertension control as well as to increase his potassium. We will also titrate his indoor from 30 mg 60 mg. We will need close monitoring of his blood pressure to assure that his blood pressures not overcorrected. Qualifiers: Hypertension type: unspecified Qualified Code(s): I10 - Essential (primary) hypertension (2) Elevated troponin Current Visit: Yes Status: Acute Per the primary team. The patient denies chest pain at the time my evaluation. (3) Anemia Current Visit: No Status: Chronic Mild asymptomatic and per the primary team. Qualifiers: Qualified Code(s): D64.9 - Anemia, unspecified Subjective Principal diagnosis: Hypertension Interval history: Patient seen. No new complaint. He would like to go home. He denies orthostatic symptoms. Objective - Vital Signs Vital signs: Vital Signs Temp Pulse Resp BP Pulse Ox 10/08/18 14:55 97.6 F 57 16 159/70 96 10/08/18 11:10 97.6 F 58 16 173/80 96 10/08/18 07:54 18 96 10/08/18 07:35 97.7 F 70 16 209/84 95 10/08/18 04:11 97.9 F 69 16 175/80 94 10/07/18 23:57 16 96 10/07/18 23:17 97.4 F L 71 16 191/73 94 10/07/18 18:55 97.6 F 80 16 182/78 98 Intake and Output 10/07/18 10/08/18 10/08/18 23:59 07:59 15:59 Intake Total 720 / 720 Balance 720 / 720 Intake: Oral 720 / 720 Other: Meal Lunch Percent of Meal Consumed 100% Weight 114 kg Blood Glucose* 131 126 134 Patient Weight 10/08/18 23:59 Weight 114 kg - General Appearance General appearance: Present: well-developed, well-nourished Cardiology: Present: regular rate Integumentary: Present: warm and dry Neurologic: Present: alert and oriented x3 Psychiatric: Present: mood/affect appropriate - Lab 10/07/18 04:36 10/08/18 05:24 Most recent lab results Calcium 9.4 mg/dL (8.6-10.3) 10/08/18 05:24 Magnesium 1.8 mg/dL (1.6-2.6) 10/08/18 05:24 Consult Discharge Plan - Plan Referrals: Dulce Maria Cabral MD [Primary Care Provider] -
[2018-10-08] MEDS ORDERED: *HR* Warfarin 2.5 MG TABLET PO ONE (18:00)
[2018-10-09 04:24] LABS: Basophils % 0.7 %; Eosinophils # 0.1 K/mcL (0.0-0.6); Eosinophils % 2.7 %; Hematocrit 36.1 % (37.5-50.1); Hemoglobin 11.7 g/dL (12.9-16.9); Immature Granulocytes % 0.2 % (0-4); Lymphocytes # 0.7 K/mcL (0.6-4.6); Mean Corpuscular HGB Conc 32.4 g/dL (31.6-35.5); Mean Corpuscular Volume 92.6 fL (83.0-100.0); Mean Platelet Volume 10.6 fL (9.4-12.4); Monocytes # 0.4 K/mcL (0.0-1.3); Neutrophils # 3.3 K/mcL (1.6-8.9); Platelet Count 120 K/mcL (140-400); Segmented Neutrophils % 73.4 %
[2018-10-09 04:30] LABS: INR 2.3; Prothrombin Time 25.8 Seconds (9.4-12.1)
[2018-10-09 04:44] LABS: BUN/Creatinine Ratio 27 (6-26); Blood Urea Nitrogen 33 mg/dL (8-23); Calcium 9.4 mg/dL (8.6-10.3); Carbon Dioxide 26 mEq/L (23-29); Chloride 110 mEq/L (98-107); Glucose 138 mg/dL (70-105); Osmolality,Calculated 307 (280-300); Potassium 3.8 mEq/L (3.5-5.1); Sodium 144 mEq/L (136-145); eGFR For Non-African Americans 57 (> 60)
[2018-10-09] MEDS: Furosemide 40 MG TABLET PO SCH (07:39)
[2018-10-09] MEDS: Isosorbide MONOnitrate (24 HR) 30 MG TAB.ER.24H PO SCH (07:39)
[2018-10-09] MEDS: Cholecalciferol (D-3) 1,000 UNIT TABLET PO SCH (07:39)
[2018-10-09] MEDS: Aspirin Enteric Coated 81 MG Tablet PO SCH (07:39)
[2018-10-09] MEDS: aMILoride 5 MG TABLET PO SCH (07:39)
[2018-10-09] MEDS: Insulin LISPRO 300 UNITS/3 ML VIAL SQ SCH ×3 (07:40→17:02)
[2018-10-09] MEDS: Metoprolol 100 MG TABLET PO SCH ×2 (07:40→21:04)
[2018-10-09] MEDS: Lisinopril 20 MG TABLET PO SCH ×2 (07:40→21:04)
[2018-10-09] MEDS: CIT AC PO SCH (07:41)
[2018-10-09] MEDS: POTASSIUM BICARBONATE PO SCH (07:41)
--- NOTE | 2018-10-09 08:41 | Discharge Summary ---
- NOTES TO OUTPATIENT PROVIDER Notes to Outpatient Provider: Patient will need to monitor BP BID and keep Log follow up with nephrology Orders not resulted at time of discharge: Pending orders 10/05/18 06:00 EKG [ECG 12 lead ECG] [ECG] AM 0600 Date of Encounter: 10/09/18 Time of Encounter: 08:25 - Discharge Diagnosis (1) Hypertensive emergency Priority: Primary Status: Acute (2) Heart failure, diastolic, with acute decompensation Priority: Secondary Status: Acute (3) COPD (chronic obstructive pulmonary disease) Priority: Secondary Status: Chronic Qualifiers: COPD type: emphysema Emphysema type: panlobular Qualified 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 (4) Afib Priority: Secondary Status: Chronic Qualifiers: Atrial fibrillation type: unspecified Qualified Code(s): I48.91 - Unspecified atrial fibrillation (5) DANNIELLE (obstructive sleep apnea) Priority: Secondary Status: Chronic (6) Elevated troponin Priority: Secondary Status: Acute (7) Hypernatremia Priority: Secondary Status: Acute (8) Hypokalemia Priority: Secondary Status: Acute Hospital course: Mr. Lora is a 78 year old male smoker with history of HIV fibrillation diabetes HCC hypertension CJD COPD who presented to [facility] ED with chief complaint of weakness and elevated blood pressure. States his blood pressure has been elevated over the past week especially high within the past 3 days with a systolic 200s. He reports that his medications were changed in March -he notify his shactor helper who advised him to come to the ER for evaluation. Initial troponins were slightly elevated however this plateaued suspect related to demand ischemia secondary to hypertension urgency patient declined any chest pain no EKGs changes were noted. He did have lower extremity swelling and he was given diuretics he did express some type her nitrating the and was given gentle hydration and returned to baseline. Blood pressure continue to be elevated systolics 190s to 200s despite increases in medications. Nephrology was consulted and patient was placed on Norvasc 5 mg daily as well as amiloride as well as increase of his Imdur. Patient's blood pressure finally stabilized patient was advised to monitor blood pressure twice a day and to follow-up with his primary care provider as well as with nephrology. Patient verbalized understanding currently he is hemodynamically stable and ready for discharge. - Time Spent with Patient Total time spent providing and/or coordinating discharge services: - Discharge Medications Prescriptions: aMILoride [Midamor] 5 mg PO DAILY #30 tablet amLODIPine [Norvasc] 5 mg PO DAILY #30 tablet Isosorbide MONOnitrate (24 HR) [Imdur] 60 mg PO DAILY #30 tab.er.24h Lisinopril [Zestril] 20 mg PO BID #30 tablet Home Medications: Aspirin Enteric Coated [Aspirin EC] 81 mg PO DAILY 03/26/15 [History] Pravastatin Sodium [Pravachol] 20 mg PO QPM 03/26/15 [History] Albuterol Sulfate [Proair Respiclick] 2 puff IH Q4HR PRN 12/24/16 [History] Budesonide/Formoterol 160/4.5 [Symbicort 160/4.5] 2 puff IH BID 12/24/16 [Hist ory] Cholecalciferol (D-3) [Vitamin D] 1,000 unit PO DAILY 04/18/18 [History] Gemfibrozil [Lopid] 600 mg PO BID 04/18/18 [History] Glimepiride [Amaryl] 1 mg PO DAILY 04/18/18 [History] Metoprolol [Lopressor] 150 mg PO BID 04/18/18 [History] Montelukast [Singulair] 10 mg PO HS 04/18/18 [History] Warfarin [Coumadin] 2.5 mg PO Q48H 04/18/18 [History] Warfarin [Coumadin] 3 mg PO Q48H 04/18/18 [History] Insulin DETEMIR [Levemir Flextouch] 7 unit SQ HS 09/04/18 [History] Pantoprazole Sodium 40 mg PO DAILY #30 tablet. 10/02/18 [Rx] Fexofenadine HCl 180 mg PO DAILY PRN 10/04/18 [History] Insulin LISPRO [Humalog Kwikpen U-100] 0 - 2 unit SQ QPM 10/04/18 [History] Lisinopril [Zestril] 20 mg PO QAM 10/04/18 [History] Potassium Bicarbonate/Cit AC [Effer-K 10 Meq Tablet Eff] 10 meq PO QAM 10/04/18 [History] Furosemide [Lasix] 40 mg PO DAILY tablet 10/09/18 [Rx] Isosorbide MONOnitrate (24 HR) [Imdur] 60 mg PO DAILY #30 tab.er.24h 10/09/18 [Rx] Lisinopril [Zestril] 20 mg PO BID #30 tablet 10/09/18 [Rx] aMILoride [Midamor] 5 mg PO DAILY #30 tablet 10/09/18 [Rx] amLODIPine [Norvasc] 5 mg PO DAILY #30 tablet 10/09/18 [Rx] Allergies/Adverse Reactions: Allergy/AdvReac Type Severity Reaction Status Date / Time clonidine AdvReac Dry Mucus Verified 09/04/18 11:39 Membranes Iodinated Contrast- Oral and AdvReac Flushing Verified 09/04/18 11:39 IV Dye Date of admission: 10/08/18 14:48 Primary care physician: Dulce Maria Cabral MD Consults: 10/04/18 09:37 Consult to Nurse Navigator [CONS] Routine Comment: CHF 10/07/18 08:50 Consult to Nephrology [CONS] Routine Consulting Provider: Kidney Janee/RENÉ/ANTOLIN/VERNA Reason for Consult: hypertension Time Notified: 08:50 Call Completed: Yes Discharging clinician: Melisa Suarez Anticipated date of discharge: 10/09/18 - Constitutional Vitals: Temp Pulse Resp BP Pulse Ox 97.9 F 61 20 186/79 96 10/09/18 07:18 10/09/18 07:18 10/09/18 07:18 10/09/18 07:18 10/09/18 07:18 Exam: General: Alert and oriented 3 in no acute distress Skin:Normal color, no rash, no lesions. HEENT:EOM, pupils equal, round and reactive. Cardiovascular:Normal S1 & S2, no rubs, murmurs or gallops. No JVD. Pulse regular. Lungs:Normal breath sounds, no wheezes or crackles. Abdomen:Soft, non-tender, no rigidity. Extremities: +1+2 lower extremity edema Neurological:Normal cognition and motor skills. Pulses:Carotid and radial pulses normal +2. Rest of the physical exam is non contributory - Patient Status Disposition: Home, Self-Care Condition: Fair Functional capacity at discharge: independent ambulation Overall status at discharge: patient is back to baseline - Discharge Instructions Instructions: Hypertensive Crisis (DC) Follow Up With: Dulce Maria Cabral MD [Primary Care Provider] - 10/12/18 11:45 am - Diet and Activity Activity: increase activity as tolerated Diet: low salt diet
[2018-10-09] MEDS ORDERED: amLODIPine 5 MG TABLET PO SCH (09:00)
[2018-10-09] MEDS: amLODIPine 5 MG TABLET PO SCH (09:43)
[2018-10-09] MEDS: Budesonide/Formoterol 160/4.5 1 PUFF INH IH SCH ×2 (11:04→23:13)
--- NOTE | 2018-10-09 13:22 | Internal Med Progress Note ---
Hospitalist Progress Note - Encounter Date of Encounter: 10/09/18 Time of Encounter: 13:22 - Subjective Interval History: Patient was seen and examined at bedside currently denies any chest pain or shortness of breath, patient does have lower extremity edema bilaterally 1 plus pitting edema. Blood pressure was slightly elevated this morning with systolic 180s evaluated by nephrology we will adjust medications and monitor overnight discussed the plan with the patient and was at bedside verbalized understanding and agreement - Exam Vitals: Temp Pulse Resp BP Pulse Ox 97.4 F L 54 18 180/83 95 10/09/18 11:11 10/09/18 11:11 10/09/18 11:11 10/09/18 11:11 10/09/18 11:11 Exam: General: Alert and oriented 3 in no acute distress Skin:Normal color, no rash, no lesions. HEENT:EOM, pupils equal, round and reactive. Cardiovascular:Normal S1 & S2, no rubs, murmurs or gallops. No JVD. Pulse regular. Lungs:Normal breath sounds, no wheezes or crackles. Abdomen:Soft, non-tender, no rigidity. Extremities: +1+2 lower extremity edema Neurological:Normal cognition and motor skills. Pulses:Carotid and radial pulses normal +2. Rest of the physical exam is non contributory - Assessment and Plan (1) Hypertensive emergency Current Visit: Yes Status: Acute Assessment and Plan: Blood pressure improved-however continues to have spikes in systolic pressure over 200 Continue blood pressure control target blood pressure systolic of 175-hydralazin e as needed for systolic greater than 180 Troponins were elevated secondary to demand ischemia continue to monitor Resumed home medications of lisinopril and metoprolol we will increase lisinopril to 20 mg twice a day Nephrology has been consulted we will initiate on Norvasc 5 mg daily . Blood pressures improved continues to be 180 systolic continues to have lower extremity swelling discuss with nephrology we will increase amiloride continue with Imdur and Norvasc (2) Heart failure, diastolic, with acute decompensation Current Visit: No Status: Acute Assessment and Plan: Seems to be continues to have a 70 swallowing continue home Lasix-nephrology did add amiloride which we will increase to 10 mg per recommendations Echo was completed Impressions: LVEF 60-65%. Normal LV chamber size and systolic function. Mild concentric left ventricular hypertrophy. Indeterminate diastolic function. Mildly dilated left atrium. Normal right ventricular structure and function. No significant valvular dysfunction. Mild pulmonary hypertension. Does not appear to be in any respiratory distress and denies any chest pain Appreciate nephrology's recommendations Monitor intake and output daily weights (3) COPD (chronic obstructive pulmonary disease) Current Visit: No Status: Chronic Assessment and Plan: No evidence of an acute exacerbation. Continue home inhalers. (4) Afib Current Visit: No Status: Chronic Assessment and Plan: History of atrial fibrillation rate controlled on anticoagulation with warfarin. -Continue home medications and warfarin. (5) DANNIELLE (obstructive sleep apnea) Current Visit: No Status: Chronic Assessment and Plan: History of obstructive sleep apnea on CPAP at night. Continue CPAP at bedtime (6) Elevated troponin Current Visit: Yes Status: Acute Assessment and Plan: Elevated troponin of 0.04 in the setting of hypertensive emergency. No EKG changes had noted above, no reports of any chest pain. Suspect demand ischemia Troponins remained flat no chest pain reported suspect this is demand ischemia from hypertensive emergency Continue cardiac monitoring (7) Hypernatremia Current Visit: Yes Status: Resolved Assessment and Plan: Resolved (8) Hypokalemia Current Visit: Yes Status: Acute Assessment and Plan: Likely secondary to diuretic use magnesium is stable at this time We will replace and monitor Potassium 20 mEq twice a day - Time Spent with Patient Total time spent is greater than 50% in coordination of care (as documented) at patient's floor/unit and/or counseling patient: Internal Medicine: Result - Labs CBC & Chem 7: 10/09/18 04:08 10/09/18 04:08 Labs: Short CBC 10/09/18 Range/Units 04:08 WBC 4.5 (4.3-11.1) K/mcL Hgb 11.7 L (12.9-16.9) g/dL Hct 36.1 L (37.5-50.1) % Plt Count 120 L (140-400) K/mcL Neutrophils # 3.3 (1.6-8.9) K/mcL BMP 10/09/18 04:08 Sodium 144 Potassium 3.8 Chloride 110 H Carbon Dioxide 26 BUN 33 H Creatinine 1.23 Glucose 138 H Calcium 9.4 - ABG Interpretation ABG results: PT/INR, D-dimer PT 25.8 Seconds (9.4-12.1) H 10/09/18 04:08 Consult Discharge Plan - Plan Instructions: Hypertensive Crisis (DC) Referrals: Dulce Maria Cabral MD [Primary Care Provider] - 10/12/18 11:45 am Prescriptions: aMILoride [Midamor] 5 mg PO DAILY #30 tablet amLODIPine [Norvasc] 5 mg PO DAILY #30 tablet Isosorbide MONOnitrate (24 HR) [Imdur] 60 mg PO DAILY #30 tab.er.24h Lisinopril [Zestril] 20 mg PO BID #30 tablet (3) COPD (chronic obstructive pulmonary disease) Qualifiers: COPD type: emphysema Emphysema type: panlobular Qualified 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 (4) Afib Qualifiers: Atrial fibrillation type: unspecified Qualified Code(s): I48.91 - Unspecified atrial fibrillation
[2018-10-09] MEDS ORDERED: aMILoride 5 MG TABLET PO ONE (16:30)
--- NOTE | 2018-10-09 17:21 | Nephrology Progress Note ---
Date of Encounter: 10/09/18 Time of Encounter: 13:00 - Assessment and Plan (1) Hypertension Current Visit: Yes Status: Chronic Possibly volume mediated, will increase amiloride to 10mg daily Will give another iv lasix dose today while monitor UOP Continue renal cardiac diet Will check secondary causes of HTN workup Qualifiers: Hypertension type: unspecified Qualified Code(s): I10 - Essential (primary) hypertension (2) Congestive heart failure Current Visit: No Status: Acute Strict I/Os Fluid restriction Diuresis with lasix; oral and iv prn (3) Anemia Current Visit: No Status: Chronic Hgb stable at 11.7 Qualifiers: Qualified Code(s): D64.9 - Anemia, unspecified (4) CKD (chronic kidney disease) stage 3, GFR 30-59 ml/min Current Visit: No Status: Chronic Mild and stable, will monitor Subjective Principal diagnosis: Hypertension Interval history: Pt seen and examined with at bedside, concerned his BP readings still quite high in the 180s. Notes continued LE edema despite diuresis over the weekend. Objective - Vital Signs Vital signs: Vital Signs Temp Pulse Resp BP Pulse Ox 10/09/18 16:01 97.5 F L 67 18 187/82 94 10/09/18 11:11 97.4 F L 54 18 180/83 95 10/09/18 11:04 18 95 10/09/18 07:18 97.9 F 61 20 186/79 96 10/09/18 03:31 97.7 F 54 16 163/77 96 10/08/18 23:21 97.9 F 67 16 138/69 94 10/08/18 21:53 16 96 10/08/18 18:59 97.6 F 71 16 155/71 97 Intake and Output 10/09/18 10/09/18 10/09/18 07:59 15:59 23:59 Intake Total 600 / 600 Output Total 0 / 0 Balance 0 / 0 600 / 600 Intake: Oral 600 / 600 Output: Urine 0 / 0 Other: Meal Lunch Percent of Meal Consumed 100% # Voids 2 Weight 114.6 kg Blood Glucose* 125 129 114 Patient Weight 10/09/18 23:59 Weight 114.6 kg - General Appearance General appearance: Present: well-developed, well-nourished EENT: Present: ATNC, mucous membranes moist Neck: Present: no JVD, supple Respiratory: Present: clear Cardiology: Present: edema, normal S1, normal S2 Gastrointestinal: Present: no tenderness, no guarding, obese Integumentary: Present: warm and dry Neurologic: Present: no focal deficit Musculoskeletal: Present: no deformities Psychiatric: Present: mood/affect appropriate, cooperative - Lab 10/09/18 04:08 10/09/18 04:08 Most recent lab results Calcium 9.4 mg/dL (8.6-10.3) 10/09/18 04:08 Magnesium 1.8 mg/dL (1.6-2.6) 10/08/18 05:24 Consult Discharge Plan - Plan Instructions: Hypertensive Crisis (DC) Referrals: Dulce Maria Cabral MD [Primary Care Provider] - 10/12/18 11:45 am Prescriptions: aMILoride [Midamor] 5 mg PO DAILY #30 tablet amLODIPine [Norvasc] 5 mg PO DAILY #30 tablet Isosorbide MONOnitrate (24 HR) [Imdur] 60 mg PO DAILY #30 tab.er.24h Lisinopril [Zestril] 20 mg PO BID #30 tablet
[2018-10-09] MEDS ORDERED: Furosemide 40 MG/4 ML VIAL IVP ONE (17:26)
[2018-10-09] MEDS ORDERED: *HR* Warfarin 3 MG TABLET PO ONE (18:00)
[2018-10-10 05:35] LABS: Basophils # 0.1 K/mcL (0.0-0.2); Eosinophils # 0.1 K/mcL (0.0-0.6); Eosinophils % 2.5 %; Hematocrit 37.3 % (37.5-50.1); Hemoglobin 12.4 g/dL (12.9-16.9); Immature Granulocytes % 0.2 % (0-4); Lymphocytes # 0.7 K/mcL (0.6-4.6); Lymphocytes % 14.9 %; Mean Corpuscular HGB Conc 33.2 g/dL (31.6-35.5); Mean Corpuscular Hemoglobin 30.1 pg (28.0-33.3); Mean Corpuscular Volume 90.5 fL (83.0-100.0); Mean Platelet Volume 10.6 fL (9.4-12.4); Monocytes # 0.4 K/mcL (0.0-1.3); Monocytes % 8.5 %; Neutrophils # 3.5 K/mcL (1.6-8.9); Platelet Count 122 K/mcL (140-400); Red Blood Count 4.12 M/mcL (4.19-5.50); Red Cell Distribution Width 15.7 % (11.5-14.5); Segmented Neutrophils % 72.9 %
[2018-10-10 05:45] LABS: INR 2.1; Prothrombin Time 24.2 Seconds (9.4-12.1)
[2018-10-10 06:04] LABS: BUN/Creatinine Ratio 26 (6-26); Blood Urea Nitrogen 33 mg/dL (8-23); Calcium 9.2 mg/dL (8.6-10.3); Carbon Dioxide 24 mEq/L (23-29); Chloride 107 mEq/L (98-107); Glucose 136 mg/dL (70-105); Osmolality,Calculated 303 (280-300); Potassium 3.9 mEq/L (3.5-5.1); Sodium 142 mEq/L (136-145); eGFR For Non-African Americans 54 (> 60)
[2018-10-10 06:05] LABS: Thyroid Stimulating Hormone 2.174 mcIU/mL (0.340-5.600)
[2018-10-10] MEDS: Insulin LISPRO 300 UNITS/3 ML VIAL SQ SCH ×3 (07:46→16:50)
[2018-10-10] MEDS: Cholecalciferol (D-3) 1,000 UNIT TABLET PO SCH (07:57)
[2018-10-10] MEDS: amLODIPine 5 MG TABLET PO SCH (07:57)
[2018-10-10] MEDS: Aspirin Enteric Coated 81 MG Tablet PO SCH (07:57)
[2018-10-10] MEDS: Furosemide 40 MG TABLET PO SCH (07:57)
[2018-10-10] MEDS: Metoprolol 100 MG TABLET PO SCH ×2 (07:57→21:51)
[2018-10-10] MEDS: aMILoride 5 MG TABLET PO SCH (07:58)
[2018-10-10] MEDS: Lisinopril 20 MG TABLET PO SCH ×2 (07:58→21:52)
[2018-10-10] MEDS: Isosorbide MONOnitrate (24 HR) 30 MG TAB.ER.24H PO SCH (07:58)
[2018-10-10] MEDS: Budesonide/Formoterol 160/4.5 1 PUFF INH IH SCH ×2 (08:19→20:01)
--- NOTE | 2018-10-10 17:56 | Nephrology Progress Note ---
Date of Encounter: 10/10/18 Time of Encounter: 12:00 - Assessment and Plan (1) Hypertension Current Visit: Yes Status: Chronic s/p iv lasix yesterday, will dose again today with possible volume mediated elevated BPs Workup for secondary HTN pending Will arrange for duplex renal artery as well Will consider changing amlodipine from 5mg daily to bid if still with elevated am BP readings tomorrow Will consider also changing metoprolol to labetalol if needed Convict [employer] nd reports prior reaction to clonidine and hence cannot use Qualifiers: Hypertension type: unspecified Qualified Code(s): I10 - Essential (primary) hypertension (2) Heart failure, diastolic, with acute decompensation Current Visit: No Status: Acute Strict I/Os Fluid restriction Diuresis with lasix; oral and iv prn (3) Anemia Current Visit: No Status: Acute Hgb stable Qualifiers: Qualified Code(s): D64.9 - Anemia, unspecified (4) CKD (chronic kidney disease) stage 3, GFR 30-59 ml/min Current Visit: No Status: Chronic Mild and stable, will monitor Subjective Principal diagnosis: Hypertension Interval history: Pt seen and examined with at bedside, BP reading this am was 204/84 but dropped with meds Objective - Vital Signs Vital signs: Vital Signs Temp Pulse Resp BP Pulse Ox 10/10/18 15:42 98.4 F 60 16 153/60 94 10/10/18 11:26 97.4 F L 60 16 137/66 95 10/10/18 08:20 18 98 10/10/18 07:34 97.7 F 65 16 204/84 96 10/10/18 03:58 98.1 F 55 16 145/69 98 10/09/18 23:46 97.5 F L 56 18 147/73 99 10/09/18 23:13 15 98 10/09/18 19:08 98.0 F 80 18 133/69 96 Intake and Output 10/10/18 10/10/18 10/10/18 07:59 15:59 23:59 Intake Total 360 / 360 Output Total 400 / 400 Balance -400 / -400 360 / 360 Intake: Oral 360 / 360 Output: Urine 400 / 400 Other: Meal Breakfast Percent of Meal Consumed 100% Weight 112.2 kg Blood Glucose* 120 135 Patient Weight 10/10/18 23:59 Weight 112.2 kg - General Appearance General appearance: Present: well-developed, well-nourished EENT: Present: PERRL, mucous membranes moist Neck: Present: no JVD, supple Respiratory: Present: clear Cardiology: Present: edema (slightly improved bilat LE), normal S1, normal S2 Gastrointestinal: Present: no tenderness, no guarding, obese Integumentary: Present: warm and dry Neurologic: Present: no focal deficit Musculoskeletal: Present: no deformities Psychiatric: Present: mood/affect appropriate, cooperative - Lab 10/10/18 05:00 10/10/18 05:00 Most recent lab results Calcium 9.2 mg/dL (8.6-10.3) 10/10/18 05:00 Magnesium 1.8 mg/dL (1.6-2.6) 10/08/18 05:24 Consult Discharge Plan - Plan Instructions: Hypertensive Crisis (DC) Referrals: Dulce Maria Cabral MD [Primary Care Provider] - 10/12/18 11:45 am Prescriptions: aMILoride [Midamor] 5 mg PO DAILY #30 tablet amLODIPine [Norvasc] 5 mg PO DAILY #30 tablet Isosorbide MONOnitrate (24 HR) [Imdur] 60 mg PO DAILY #30 tab.er.24h Lisinopril [Zestril] 20 mg PO BID #30 tablet
[2018-10-10] MEDS ORDERED: Furosemide 40 MG/4 ML VIAL IVP ONE (17:57)
[2018-10-10] MEDS ORDERED: *HR* Warfarin 2.5 MG TABLET PO ONE (18:00)
--- NOTE | 2018-10-10 19:40 | Internal Med Progress Note ---
Hospitalist Progress Note - Encounter Date of Encounter: 10/10/18 Time of Encounter: 16:00 - Subjective Interval History: Patient was seen and examined at bedside currently denies any chest pain or shortness of breath, patient does have lower extremity edema bilaterally 1 plus pitting edema. Blood pressure continues to peak in the a.m. with systolic ar ound 200 today discuss treatment plan with the patient who verbalized understanding - Exam Vitals: Temp Pulse Resp BP Pulse Ox 98.4 F 67 16 142/73 95 10/10/18 19:36 10/10/18 19:36 10/10/18 19:36 10/10/18 19:36 10/10/18 19:36 Exam: General: Alert and oriented 3 in no acute distress Skin:Normal color, no rash, no lesions. HEENT:EOM, pupils equal, round and reactive. Cardiovascular:Normal S1 & S2, no rubs, murmurs or gallops. No JVD. Pulse regular. Lungs:Normal breath sounds, no wheezes or crackles. Abdomen:Soft, non-tender, no rigidity. Extremities: +1+2 lower extremity edema Neurological:Normal cognition and motor skills. Pulses:Carotid and radial pulses normal +2. Rest of the physical exam is non contributory - Assessment and Plan (1) Hypertensive emergency Current Visit: Yes Status: Acute Assessment and Plan: Blood pressure improved-however continues to have spikes in systolic pressure over 200 Continue blood pressure control target blood pressure systolic of 175-hydrala zine as needed for systolic greater than 180 Troponins were elevated secondary to demand ischemia continue to monitor Resumed home medications of lisinopril and metoprolol we will increase lisinopril to 20 mg twice a day Nephrology has been consulted we will initiate on Norvasc 5 mg daily . Blood p ressures improved continues to be 180 systolic continues to have lower extremity swelling discuss with nephrology we will increase amiloride continue with Imdur and Norvasc-patient will receive a dose of IV Lasix tonight nephrology will consider changing amlodipine to twice a day if still elevated in the a.m. and metoprolol to labetalol (2) Heart failure, diastolic, with acute decompensation Current Visit: No Status: Acute Assessment and Plan: Seems to be continues to have a 70 swallowing continue home Lasix-nephrology did add amiloride which we will increase to 10 mg per-IV Lasix as needed per nephrology Echo was completed Impressions: LVEF 60-65%. Normal LV chamber size and systolic function. Mild concentric left ventricular hypertrophy. Indeterminate diastolic function. Mildly dilated left atrium. Normal right ventricular structure and function. No significant valvular dysfunction. Mild pulmonary hypertension. Does not appear to be in any respiratory distress and denies any chest pain Appreciate nephrology's recommendations Monitor intake and output daily weights (3) COPD (chronic obstructive pulmonary disease) Current Visit: No Status: Chronic Assessment and Plan: No evidence of an acute exacerbation. Continue home inhalers. (4) Afib Current Visit: No Status: Chronic Assessment and Plan: History of atrial fibrillation rate controlled on anticoagulation with warfarin. -Continue home medications and warfarin. (5) DANNIELLE (obstructive sleep apnea) Current Visit: No Status: Chronic Assessment and Plan: History of obstructive sleep apnea on CPAP at night. Continue CPAP at bedtime (6) Elevated troponin Current Visit: Yes Status: Acute Assessment and Plan: Elevated troponin of 0.04 in the setting of hypertensive emergency. No EKG changes had noted above, no reports of any chest pain. Suspect demand ischemia Troponins remained flat no chest pain reported suspect this is demand ischemia from hypertensive emergency Continue cardiac monitoring (7) Hypernatremia Current Visit: Yes Status: Resolved Assessment and Plan: Resolved (8) Hypokalemia Current Visit: Yes Status: Acute Assessment and Plan: Likely secondary to diuretic use magnesium is stable at this time We will replace and monitor Potassium 20 mEq twice a day - Time Spent with Patient Total time spent is greater than 50% in coordination of care (as documented) at patient's floor/unit and/or counseling patient: Internal Medicine: Result - Labs CBC & Chem 7: 10/10/18 05:00 10/10/18 05:00 Labs: Short CBC 10/10/18 Range/Units 05:00 WBC 4.8 (4.3-11.1) K/mcL Hgb 12.4 L (12.9-16.9) g/dL Hct 37.3 L (37.5-50.1) % Plt Count 122 L (140-400) K/mcL Neutrophils # 3.5 (1.6-8.9) K/mcL BMP 10/10/18 05:00 Sodium 142 Potassium 3.9 Chloride 107 Carbon Dioxide 24 BUN 33 H Creatinine 1.29 Glucose 136 H Calcium 9.2 - ABG Interpretation ABG results: PT/INR, D-dimer PT 24.2 Seconds (9.4-12.1) H 10/10/18 05:00 Consult Discharge Plan - Plan Instructions: Hypertensive Crisis (DC) Referrals: Dulce Maria Cabral MD [Primary Care Provider] - 10/12/18 11:45 am Prescriptions: aMILoride [Midamor] 5 mg PO DAILY #30 tablet amLODIPine [Norvasc] 5 mg PO DAILY #30 tablet Isosorbide MONOnitrate (24 HR) [Imdur] 60 mg PO DAILY #30 tab.er.24h Lisinopril [Zestril] 20 mg PO BID #30 tablet (3) COPD (chronic obstructive pulmonary disease) Qualifiers: COPD type: emphysema Emphysema type: panlobular Qualified 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 (4) Afib Qualifiers: Atrial fibrillation type: unspecified Qualified Code(s): I48.91 - Unspecified atrial fibrillation
[2018-10-11 05:33] LABS: Basophils % 0.6 %; Eosinophils # 0.1 K/mcL (0.0-0.6); Eosinophils % 2.5 %; Hematocrit 35.9 % (37.5-50.1); Hemoglobin 11.9 g/dL (12.9-16.9); Immature Granulocytes % 0.2 % (0-4); Lymphocytes # 0.7 K/mcL (0.6-4.6); Lymphocytes % 13.5 %; Mean Corpuscular HGB Conc 33.1 g/dL (31.6-35.5); Mean Corpuscular Hemoglobin 30.4 pg (28.0-33.3); Mean Corpuscular Volume 91.6 fL (83.0-100.0); Mean Platelet Volume 10.7 fL (9.4-12.4); Monocytes # 0.5 K/mcL (0.0-1.3); Monocytes % 9.6 %; Neutrophils # 3.8 K/mcL (1.6-8.9); Platelet Count 140 K/mcL (140-400); Red Blood Count 3.92 M/mcL (4.19-5.50); Red Cell Distribution Width 15.7 % (11.5-14.5); Segmented Neutrophils % 73.6 %
[2018-10-11 05:48] LABS: INR 2.4; Prothrombin Time 26.6 Seconds (9.4-12.1)
[2018-10-11 06:03] LABS: Calcium 9.4 mg/dL (8.6-10.3); Potassium 3.6 mEq/L (3.5-5.1)
[2018-10-11] MEDS: Budesonide/Formoterol 160/4.5 1 PUFF INH IH SCH ×2 (10:21→20:41)
[2018-10-11] MEDS: Cholecalciferol (D-3) 1,000 UNIT TABLET PO SCH (10:40)
[2018-10-11] MEDS: aMILoride 5 MG TABLET PO SCH (10:40)
[2018-10-11] MEDS: Isosorbide MONOnitrate (24 HR) 30 MG TAB.ER.24H PO SCH (10:41)
[2018-10-11] MEDS: Aspirin Enteric Coated 81 MG Tablet PO SCH (10:41)
[2018-10-11] MEDS: Metoprolol 100 MG TABLET PO SCH ×2 (10:41→21:08)
[2018-10-11] MEDS: amLODIPine 5 MG TABLET PO SCH ×2 (10:41→21:08)
[2018-10-11] MEDS: Insulin LISPRO 300 UNITS/3 ML VIAL SQ SCH ×3 (10:45→17:30)
[2018-10-11] MEDS: Lisinopril 20 MG TABLET PO SCH ×2 (10:54→21:08)
--- NOTE | 2018-10-11 13:33 | Internal Med Progress Note ---
Hospitalist Progress Note - Encounter Date of Encounter: 10/11/18 Time of Encounter: 13:30 - Subjective Interval History: Pt seen and examined in the room, he has no compliants at this time. - Exam Vitals: Temp Pulse Resp BP Pulse Ox 97.6 F 67 16 173/80 96 10/11/18 11:35 10/11/18 11:35 10/11/18 11:35 10/11/18 11:35 10/11/18 11:35 Exam: PHYSICAL EXAMINATION: GENERAL APPEARANCE: The patient is alert, oriented and in no acute distress. HEENT: Head is normocephalic. The sinuses are nontender. Pupils are equal and reactive. The nares are patent. Oropharynx clear without lesions. NECK: Supple without lymphadenopathy. HEART: Regular rate and rhythm. LUNGS: No crackles or wheezes are heard. ABDOMEN: Soft, nontender, nondistended with good bowel sounds heard. Inguinal area is normal. EXTREMITIES: Without cyanosis, clubbing or edema. NEUROLOGICAL: Gross nonfocal. SKIN: Warm and dry without any rash. - Assessment and Plan (1) Heart failure, diastolic, with acute decompensation Current Visit: No Status: Acute Assessment and Plan: 10/10 Seems to be continues to have a 70 swallowing continue home Lasix-nephrology did add amiloride which we will increase to 10 mg per-IV Lasix as needed per nephrology Echo was completed Impressions: LVEF 60-65%. Normal LV chamber size and systolic function. Mild concentric left ventricular hypertrophy. Indeterminate diastolic function. Mildly dilated left atrium. Normal right ventricular structure and function. No significant valvular dysfunction. Mild pulmonary hypertension. Does not appear to be in any respiratory distress and denies any chest pain Appreciate nephrology's recommendations Monitor intake and output daily weights. 10/11 Euvolemic, Cr slightly elevated with BUN. Lasix dc'ed. continue Amiloride. Repeat RFP in am. (2) COPD (chronic obstructive pulmonary disease) Current Visit: No Status: Chronic Assessment and Plan: No evidence of an acute exacerbation. Continue home inhalers. (3) Afib Current Visit: No Status: Chronic Assessment and Plan: History of atrial fibrillation rate controlled on anticoagulation with warfarin. -Continue home medications and warfarin. (4) DANNIELLE (obstructive sleep apnea) Current Visit: No Status: Chronic Assessment and Plan: History of obstructive sleep apnea on CPAP at night. Continue CPAP at bedtime (5) Elevated troponin Current Visit: Yes Status: Resolved (6) Hypokalemia Current Visit: Yes Status: Resolved (7) Hypertensive emergency Current Visit: Yes Status: Acute Assessment and Plan: 10/10 Blood pressure improved-however continues to have spikes in systolic pressure over 200 Continue blood pressure control target blood pressure systolic of 175- hydralazine as needed for systolic greater than 180 Troponins were elevated secondary to demand ischemia continue to monitor Resumed home medications of lisinopril and metoprolol we will increase lisinopril to 20 mg twice a day Nephrology has been consulted we will initiate on Norvasc 5 mg daily . Blood pressures improved continues to be 180 systolic continues to have lower extremity swelling discuss with nephrology we will increase amiloride continue with Imdur and Norvasc-patient will receive a dose of IV Lasix tonight nephr ology will consider changing amlodipine to twice a day if still elevated in the a.m. and metoprolol to labetalol. 10/11 BP still poorly controlled. BP meds adjusted. pending secondary HTN workup. (8) Hypernatremia Current Visit: Yes Status: Resolved DVT Prophylaxis: On coumadin, INR therapeutic. - Time Spent with Patient Total time spent is greater than 50% in coordination of care (as documented) at patient's floor/unit and/or counseling patient: Greater than 35 minutes Plan of Care Discussed with: patient Internal Medicine: Result - Labs CBC & Chem 7: 10/11/18 04:14 10/11/18 04:14 Labs: Short CBC 10/11/18 Range/Units 04:14 WBC 5.1 (4.3-11.1) K/mcL Hgb 11.9 L (12.9-16.9) g/dL Hct 35.9 L (37.5-50.1) % Plt Count 140 (140-400) K/mcL Neutrophils # 3.8 (1.6-8.9) K/mcL BMP 10/11/18 04:14 Sodium 141 Potassium 3.6 Chloride 105 Carbon Dioxide 25 BUN 36 H Creatinine 1.42 H Glucose 131 H Calcium 9.4 - ABG Interpretation ABG results: PT/INR, D-dimer PT 26.6 Seconds (9.4-12.1) H 10/11/18 04:14 Consult Discharge Plan - Plan Instructions: Hypertensive Crisis (DC) Referrals: Dulce Maria Cabral MD [Primary Care Provider] - 10/12/18 11:45 am Prescriptions: aMILoride [Midamor] 5 mg PO DAILY #30 tablet amLODIPine [Norvasc] 5 mg PO DAILY #30 tablet Isosorbide MONOnitrate (24 HR) [Imdur] 60 mg PO DAILY #30 tab.er.24h Lisinopril [Zestril] 20 mg PO BID #30 tablet __ (2) COPD (chronic obstructive pulmonary disease) Qualifiers: COPD type: emphysema Emphysema type: panlobular Qualified 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 (3) Afib Qualifiers: Atrial fibrillation type: unspecified Qualified Code(s): I48.91 - Unspecified atrial fibrillation
[2018-10-11] MEDS ORDERED: *HR* Warfarin 3 MG TABLET PO ONE (18:00)
[2018-10-11] MEDS: Furosemide 40 MG TABLET PO SCH (21:15)
--- NOTE | 2018-10-11 23:16 | Nephrology Progress Note ---
Date of Encounter: 10/11/18 Time of Encounter: 12:00 - Assessment and Plan (1) Hypertension Current Visit: Yes Status: Chronic BP still not controlled, primary increased imdur and metoprolol Can also consider changing metoprolol to labetalol instead Will hold off on increasing lisinopril any further TSH and cotrisol levels WNL Renin, aldosterone and catecholamines pending Renal duplex study pending Qualifiers: Hypertension type: unspecified Qualified Code(s): I10 - Essential (primary) hypertension (2) Heart failure, diastolic, with acute decompensation Current Visit: No Status: Acute improved Strict I/Os advised, per , UOP significantly improved after iv lasix (3) CKD (chronic kidney disease) stage 3, GFR 30-59 ml/min Current Visit: No Status: Chronic Scr slightly worse at 1.42, GFR 48 after 2 days of iv lasix, will stop at this point as volume status improved Continue to avoid nephrotoxins if possible (4) Anemia Current Visit: No Status: Chronic Hgb failry stab;le at 11.9, will monitor Qualifiers: Qualified Code(s): D64.9 - Anemia, unspecified Subjective Principal diagnosis: Hypertension Interval history: Pt seen and examined with at bedside, BP reading this am was 187 systolic. Pt reports less LE edema overall after 2 consecutive days of iv lasix. Objective - Vital Signs Vital signs: Vital Signs Temp Pulse Resp BP Pulse Ox 10/11/18 22:38 98.4 F 74 16 161/79 91 10/11/18 20:41 16 94 10/11/18 18:55 98.2 F 66 16 146/71 94 10/11/18 14:32 97.7 F 62 16 152/69 98 10/11/18 11:35 97.6 F 67 16 173/80 96 10/11/18 10:28 16 187/77 93 10/11/18 07:05 98.5 F 64 16 187/77 97 10/11/18 03:19 97.9 F 67 16 161/66 96 10/10/18 23:24 98.5 F 80 16 152/81 97 Intake and Output 10/11/18 10/11/18 10/11/18 07:59 15:59 23:59 Intake Total 660 / 660 Balance 660 / 660 Intake: Oral 660 / 660 Other: Meal Lunch Percent of Meal Consumed 100% Weight 111.8 kg Blood Glucose* 125 174 144 Patient Weight 10/11/18 23:59 Weight 111.8 kg - General Appearance General appearance: Present: well-developed, well-nourished EENT: Present: ATNC, mucous membranes moist Neck: Present: no JVD, supple Respiratory: Present: clear Cardiology: Present: edema (trace LE edema bilat), normal S1, normal S2 Gastrointestinal: Present: no tenderness, no guarding, obese Integumentary: Present: warm and dry Neurologic: Present: no focal deficit Musculoskeletal: Present: no deformities Psychiatric: Present: mood/affect appropriate, cooperative - Lab 10/11/18 04:14 10/11/18 04:14 Most recent lab results Calcium 9.4 mg/dL (8.6-10.3) 10/11/18 04:14 Magnesium 1.8 mg/dL (1.6-2.6) 10/08/18 05:24 Consult Discharge Plan - Plan Instructions: Hypertensive Crisis (DC) Referrals: Dulce Maria Cabral MD [Primary Care Provider] - 10/12/18 11:45 am Prescriptions: aMILoride [Midamor] 5 mg PO DAILY #30 tablet amLODIPine [Norvasc] 5 mg PO DAILY #30 tablet Isosorbide MONOnitrate (24 HR) [Imdur] 60 mg PO DAILY #30 tab.er.24h Lisinopril [Zestril] 20 mg PO BID #30 tablet
[2018-10-12 04:23] LABS: INR 2.3; Prothrombin Time 25.9 Seconds (9.4-12.1)
[2018-10-12 04:25] LABS: BUN/Creatinine Ratio 28 (6-26); Blood Urea Nitrogen 37 mg/dL (8-23); Calcium 9.1 mg/dL (8.6-10.3); Carbon Dioxide 24 mEq/L (23-29); Chloride 106 mEq/L (98-107); Glucose 135 mg/dL (70-105); Osmolality,Calculated 309 (280-300); Potassium 3.9 mEq/L (3.5-5.1); Sodium 144 mEq/L (136-145); eGFR For Non-African Americans 52 (> 60)
[2018-10-12] MEDS: Insulin LISPRO 300 UNITS/3 ML VIAL SQ SCH ×2 (07:41→11:56)
[2018-10-12] MEDS ORDERED: Isosorbide MONOnitrate (24 HR) 30 MG TAB.ER.24H PO SCH (09:00)
[2018-10-12] MEDS: Aspirin Enteric Coated 81 MG Tablet PO SCH (09:10)
[2018-10-12] MEDS: aMILoride 5 MG TABLET PO SCH (09:10)
[2018-10-12] MEDS: amLODIPine 5 MG TABLET PO SCH (09:10)
[2018-10-12] MEDS: Lisinopril 20 MG TABLET PO SCH (09:10)
[2018-10-12] MEDS: Cholecalciferol (D-3) 1,000 UNIT TABLET PO SCH (09:11)
[2018-10-12] MEDS: Metoprolol 100 MG TABLET PO SCH (09:11)
[2018-10-12] MEDS: Budesonide/Formoterol 160/4.5 1 PUFF INH IH SCH (09:41)
--- NOTE | 2018-10-12 11:23 | Discharge Summary ---
- NOTES TO OUTPATIENT PROVIDER Notes to Outpatient Provider: f/u with PCP within a week, repeat labs and check BP, review meds. F/u with renal within 2 weeks, review lab results. Orders not resulted at time of discharge: Pending orders 10/10/18 05:00 Aldosterone, Blood AM 0400 Catecholamines,Fractionated AM 0400 Renin, Activity AM 0400 10/13/18 04:00 INR/PT [Prothrombin Time INR] [COAG] AM 0400 Date of Encounter: 10/12/18 Time of Encounter: 11:21 - Discharge Diagnosis (1) Heart failure, diastolic, with acute decompensation Priority: Primary Status: Acute (2) COPD (chronic obstructive pulmonary disease) Priority: Secondary Status: Chronic Qualifiers: COPD type: emphysema Emphysema type: panlobular Qualified 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 (3) Afib Priority: Secondary Status: Chronic Qualifiers: Atrial fibrillation type: unspecified Qualified Code(s): I48.91 - Unspecif ied atrial fibrillation (4) DANNIELLE (obstructive sleep apnea) Priority: Secondary Status: Chronic (5) Elevated troponin Priority: Primary Status: Resolved (6) Hypokalemia Priority: Primary Status: Resolved (7) Hypertensive emergency Priority: Primary Status: Acute (8) Hypernatremia Priority: Primary Status: Resolved (9) Acute on chronic renal failure Priority: Primary Status: Acute Qualifiers: Acute renal failure type: unspecified Chronic kidney disease stage: stage 3 (moderate) Qualified Code(s): N17.9 - Acute kidney failure, unspecified; N18.3 - Chronic kidney disease, stage 3 (moderate) Hospital course: Mr. Lora is a 78 year old male with past medical history of atrial fibrillation, diabetes, HCC, hypertension, CKD, COPD who presented to the ED with a chief complaint of weakness and elevated blood pressure. Patient states that his blood pressures been elevated over the past week, but has been especially high with past 3 days with a systolic in the 220s. Patient reports being compliant with his medications. He states he has been off his lisinopril since last March per his doctor. He contacted his miner helper earlier today and reported his blood pressure readings and was subsequently referred to the ED. Patient denies any chest pain however was found to have a mildly elevated troponin of 0.04 on arrival. No EKG changes were noted. He does complain of worsening lower extremity edema and some dyspnea. Upon arrival patient was found have a blood pressure of 195/100. He was given a one-time dose of 5 mg of Lopressor and amlodipine by mouth. Pt was admitted for further management. Several BP meds were introduced and pt still having labile BP in the first several day. He also received IV and po lasix due to pulmonary edema. Renal was consulted and workup for secondary hypertension was initiated. So far labs showed normal TSH and radome cortisol. Renin, Aldasterone, Metanephrine, and renal artery doppler report are pending. On the discharged day, his BP has been stable and controlled for 2 days. He will f/u with PCP and renal as scheduled. He also was instructed to continue check BP daily and take meds as ordered. Discharge discussed with: patient, family Time spent discussing smoking cessation with patient: more than 10 minutes - Time Spent with Patient Total time spent providing and/or coordinating discharge services: 45 mins. Greater than 30 minutes - Discharge Medications Prescriptions: New aMILoride [Midamor] 5 mg PO DAILY #30 tablet Furosemide [Lasix] 40 mg PO DAILY tablet Lisinopril [Zestril] 20 mg PO BID #30 tablet amLODIPine [Norvasc] 5 mg PO BID #60 tablet Isosorbide MONOnitrate (24 HR) [Imdur] 90 mg PO DAILY #30 tab.er.24h Metoprolol [Lopressor] 200 mg PO BID #60 tablet Continue Pravastatin Sodium [Pravachol] 20 mg PO QPM Aspirin Enteric Coated [Aspirin EC] 81 mg PO DAILY Albuterol Sulfate [Proair Respiclick] 2 puff IH Q4HR PRN PRN Reason: Shortness Of Breath Budesonide/Formoterol 160/4.5 [Symbicort 160/4.5] 2 puff IH BID Montelukast [Singulair] 10 mg PO HS Warfarin [Coumadin] 2.5 mg PO Q48H Glimepiride [Amaryl] 1 mg PO DAILY Gemfibrozil [Lopid] 600 mg PO BID Cholecalciferol (D-3) [Vitamin D] 1,000 unit PO DAILY Insulin DETEMIR [Levemir Flextouch] 7 unit SQ HS Pantoprazole Sodium 40 mg PO DAILY #30 tablet. Potassium Bicarbonate/Cit AC [Effer-K 10 Meq Tablet Eff] 10 meq PO QAM Insulin LISPRO [Humalog Kwikpen U-100] 0 - 2 unit SQ QPM Fexofenadine HCl 180 mg PO DAILY PRN PRN Reason: Allergy Symptoms Discontinued Warfarin [Coumadin] 3 mg PO Q48H Metoprolol [Lopressor] 150 mg PO BID Isosorbide MONOnitrate [Isosorbide Mononitrate ER] 30 mg PO DAILY Lisinopril [Zestril] 20 mg PO QAM Lisinopril [Zestril] 10 mg PO QPM Furosemide [Lasix] 40 mg PO QAM Furosemide [Lasix] 20 mg PO QPM Home Medications: Aspirin Enteric Coated [Aspirin EC] 81 mg PO DAILY 03/26/15 [History] Pravastatin Sodium [Pravachol] 20 mg PO QPM 03/26/15 [History] Albuterol Sulfate [Proair Respiclick] 2 puff IH Q4HR PRN 12/24/16 [History] Budesonide/Formoterol 160/4.5 [Symbicort 160/4.5] 2 puff IH BID 12/24/16 [History] Cholecalciferol (D-3) [Vitamin D] 1,000 unit PO DAILY 04/18/18 [History] Gemfibrozil [Lopid] 600 mg PO BID 04/18/18 [History] Glimepiride [Amaryl] 1 mg PO DAILY 04/18/18 [History] Montelukast [Singulair] 10 mg PO HS 04/18/18 [History] Warfarin [Coumadin] 2.5 mg PO Q48H 04/18/18 [History] Insulin DETEMIR [Levemir Flextouch] 7 unit SQ HS 09/04/18 [History] Pantoprazole Sodium 40 mg PO DAILY #30 tablet. 10/02/18 [Rx] Fexofenadine HCl 180 mg PO DAILY PRN 10/04/18 [History] Insulin LISPRO [Humalog Kwikpen U-100] 0 - 2 unit SQ QPM 10/04/18 [History] Potassium Bicarbonate/Cit AC [Effer-K 10 Meq Tablet Eff] 10 meq PO QAM 10/04/18 [History] Furosemide [Lasix] 40 mg PO DAILY tablet 10/09/18 [Rx] Lisinopril [Zestril] 20 mg PO BID #30 tablet 10/09/18 [Rx] aMILoride [Midamor] 5 mg PO DAILY #30 tablet 10/09/18 [Rx] Isosorbide MONOnitrate (24 HR) [Imdur] 90 mg PO DAILY #30 tab.er.24h 10/12/18 [Rx] Metoprolol [Lopressor] 200 mg PO BID #60 tablet 10/12/18 [Rx] amLODIPine [Norvasc] 5 mg PO BID #60 tablet 10/12/18 [Rx] Allergies/Adverse Reactions: Allergy/AdvReac Type Severity Reaction Status Date / Time clonidine AdvReac Dry Mucus Verified 09/04/18 11:39 Membranes Iodinated Contrast- Oral and AdvReac Flushing Verified 09/04/18 11:39 IV Dye Date of admission: 10/08/18 14:48 Primary care physician: Dulce Maria Cabral MD Consults: 10/04/18 09:37 Consult to Nurse Navigator [CONS] Routine Comment: CHF 10/07/18 08:50 Consult to Nephrology [CONS] Routine Consulting Provider: Kidney Janee/RENÉ/ANTOLIN/VERNA Reason for Consult: hypertension Time Notified: 08:50 Call Completed: Yes Anticipated date of discharge: 10/12/18 - Constitutional Vitals: Temp Pulse Resp BP Pulse Ox 97.6 F 54 18 166/75 98 10/12/18 06:38 10/12/18 06:38 10/12/18 09:42 10/12/18 06:38 10/12/18 09:42 General appearance: Present: cooperative, A&O X 3, answers questions appropriately Exam: PHYSICAL EXAMINATION: GENERAL APPEARANCE: The patient is alert, oriented and in no acute distress. HEENT: Head is normocephalic. The sinuses are nontender. Pupils are equal and reactive. The nares are patent. Oropharynx clear without lesions. NECK: Supple without lymphadenopathy. HEART: Regular rate and rhythm. LUNGS: No crackles or wheezes are heard. ABDOMEN: Soft, nontender, nondistended with good bowel sounds heard. Inguinal area is normal. EXTREMITIES: Without cyanosis, clubbing or edema. NEUROLOGICAL: Gross nonfocal. SKIN: Warm and dry without any rash. - Patient Status Disposition: Home, Self-Care Condition: Fair Functional capacity at discharge: independent ambulation Overall status at discharge: patient is progressing back to baseline - Discharge Instructions Instructions: Hypertensive Crisis (DC) Follow Up With: Dulce Maria Cabral MD [Primary Care Provider] - 10/12/18 11:45 am - Diet and Activity Activity: increase activity as tolerated Diet: advance to your usual diet, low fat, low cholesterol, low salt diet
[2018-10-12 11:49] VITALS: BP 161/74
[2018-10-12] MEDS ORDERED: *HR* Warfarin 2.5 MG TABLET PO ONE (18:00)
== END 2018-10-12 14:00 | disposition home or self-care (01) | DRG 291 ==
LOC: 3BNU 17:00 → EMEROOARM 17:00 → 3BNU 21:36
PROVIDERS: ADMIT Internal Medicine; ATTEND Nurse Practitioner Acute Care

== ENCOUNTER 2020-02-18 10:33 | Inpatient (IN) ==
[2020-02-18] MEDS ORDERED: Furosemide 40 MG/4 ML VIAL IVP ONE (11:27)
[2020-02-18] MEDS ORDERED: Nitroglycerin 0.4 MG TAB.SUBL SL STA (11:27)
[2020-02-18] MEDS ORDERED: Nitroglycerin 1 INCH/GM PACKET TP ONE (11:28)
[2020-02-18 12:37] LABS: INR 3.2; Prothrombin Time 36.5 Seconds (9.4-12.1)
[2020-02-18 12:40] LABS: Basophils % 0.5 %; Eosinophils % 0.5 %; Hematocrit 37.8 % (37.5-50.1); Hemoglobin 12.7 g/dL (12.9-16.9); Immature Granulocytes % 0.6 % (0-4); Immature Platelets 3.4 % (1.1-6.1); Lymphocytes # 0.5 K/mcL (0.6-4.6); Mean Corpuscular HGB Conc 33.6 g/dL (31.6-35.5); Mean Corpuscular Hemoglobin 31.4 pg (28.0-33.3); Mean Corpuscular Volume 93.3 fL (83.0-100.0); Mean Platelet Volume 10.6 fL (9.4-12.4); Monocytes # 0.6 K/mcL (0.0-1.3); Monocytes % 7.4 %; Platelet Count 118 K/mcL (140-400); Red Blood Count 4.05 M/mcL (4.19-5.50); Red Cell Distribution Width 14.2 % (11.5-14.5); White Blood Count 8.2 K/mcL (4.3-11.1)
[2020-02-18] MEDS ORDERED: Piperacillin/Tazobactam 3.375 GM in 0.9 % Sodium Chloride Mini Bag 100 ML IVPB ONE (12:40)
[2020-02-18 13:07] LABS: BUN/Creatinine Ratio 21 (6-26); Blood Urea Nitrogen 23 mg/dL (8-23); Calcium 9.1 mg/dL (8.6-10.3); Carbon Dioxide 19 mEq/L (23-29); Chloride 110 mEq/L (98-107); Glucose 174 mg/dL (70-105); Osmolality,Calculated 296 (280-300); Potassium 4.2 mEq/L (3.5-5.1); Sodium 139 mEq/L (136-145); Troponin I 0.03 ng/mL (< 0.04); eGFR For African Americans > 60 (> 60); eGFR For Non-African Americans > 60 (> 60)
[2020-02-18] MEDS ORDERED: Ipratropium/Albuterol Neb 3 ML IH PRN (14:51)
[2020-02-18] MEDS ORDERED: *HR* Labetalol 20 MG/4 ML SYRINGE IVP PRN (14:53)
[2020-02-18] MEDS ORDERED: Naloxone 0.4 MG/ML INJ IVP PRN (14:54)
[2020-02-18] MEDS ORDERED: Azithromycin 500 MG in 0.9 % Sodium Chloride 250 ML IVPB SCH ×2 (15:00→18:00)
[2020-02-18] MEDS ORDERED: cefTRIAXone 1,000 MG in Water for inj. (sterile) 10 ML IVP SCH (15:00)
[2020-02-18] MEDS ORDERED: *HR* Labetalol 20 MG/4 ML SYRINGE IVP ONE (15:30)
[2020-02-18] MEDS ORDERED: Warfarin perPT PO PRN (18:00)
[2020-02-18] MEDS: Insulin LISPRO 300 UNITS/3 ML VIAL SQ SCH ×2 (18:11→21:34)
[2020-02-18] MEDS: Furosemide 40 MG/4 ML VIAL IVP SCH (18:16)
[2020-02-18] MEDS: cefTRIAXone 1,000 MG in Water for inj. (sterile) 10 ML IVP SCH (18:17)
[2020-02-18] MEDS ORDERED: Loratadine 10 MG TABLET PO PRN (23:47)
[2020-02-19] MEDS: Insulin DETEMIR 100 UNIT/ML X5UNITS SQ SCH ×2 (00:42→23:44)
[2020-02-19 04:51] LABS: Basophils % 0.3 %; Eosinophils # 0.1 K/mcL (0.0-0.6); Eosinophils % 0.6 %; Hemoglobin 12.5 g/dL (12.9-16.9); Immature Granulocytes % 0.6 % (0-4); Immature Platelets 3.3 % (1.1-6.1); Lymphocytes # 0.6 K/mcL (0.6-4.6); Lymphocytes % 6.8 %; Mean Corpuscular HGB Conc 33.8 g/dL (31.6-35.5); Mean Corpuscular Hemoglobin 31.6 pg (28.0-33.3); Mean Corpuscular Volume 93.7 fL (83.0-100.0); Mean Platelet Volume 10.4 fL (9.4-12.4); Monocytes # 0.9 K/mcL (0.0-1.3); Monocytes % 9.6 %; Neutrophils # 7.3 K/mcL (1.6-8.9); Platelet Count 113 K/mcL (140-400); Red Blood Count 3.95 M/mcL (4.19-5.50); Red Cell Distribution Width 13.9 % (11.5-14.5); Segmented Neutrophils % 82.1 %; White Blood Count 8.8 K/mcL (4.3-11.1)
[2020-02-19 04:53] LABS: INR 2.9; Prothrombin Time 33.1 Seconds (9.4-12.1)
[2020-02-19 05:08] LABS: BUN/Creatinine Ratio 19 (6-26); Blood Urea Nitrogen 21 mg/dL (8-23); Calcium 8.5 mg/dL (8.6-10.3); Carbon Dioxide 21 mEq/L (23-29); Chloride 105 mEq/L (98-107); Glucose 140 mg/dL (70-105); Osmolality,Calculated 295 (280-300); Potassium 3.5 mEq/L (3.5-5.1); Sodium 140 mEq/L (136-145); eGFR For African Americans > 60 (> 60); eGFR For Non-African Americans > 60 (> 60)
[2020-02-19] MEDS: Furosemide 40 MG/4 ML VIAL IVP SCH ×2 (08:31→16:47)
[2020-02-19] MEDS: Insulin LISPRO 300 UNITS/3 ML VIAL SQ SCH ×4 (08:31→22:02)
[2020-02-19] MEDS: Isosorbide MONOnitrate (24 HR) 60 MG TAB.ER.24H PO SCH (08:31)
[2020-02-19] MEDS: aMILoride 5 MG TABLET PO SCH (08:32)
[2020-02-19] MEDS: Cholecalciferol (D-3) 1,000 UNIT (25MCG) TABLET PO SCH (08:32)
[2020-02-19] MEDS: Aspirin Enteric Coated 81 MG Tablet PO SCH (08:32)
[2020-02-19] MEDS: Metoprolol 100 MG TABLET PO SCH ×2 (08:32→20:47)
[2020-02-19] MEDS: amLODIPine 5 MG TABLET PO SCH ×2 (08:32→20:47)
[2020-02-19] MEDS: gemfibroziL 600 MG TABLET PO SCH ×2 (08:32→20:47)
[2020-02-19] MEDS: Budesonide/Formoterol 160/4.5 1 PUFF INH IH SCH (10:41)
[2020-02-19] MEDS: lisinopriL 20 MG TABLET PO SCH (11:34)
[2020-02-19] MEDS: cefTRIAXone 1,000 MG in Water for inj. (sterile) 10 ML IVP SCH (16:47)
[2020-02-19] MEDS: Azithromycin 250 MG TABLET PO SCH (16:47)
[2020-02-19] MEDS ORDERED: *HR* Warfarin 3 MG TABLET PO ONE (18:00)
[2020-02-19] MEDS ORDERED: lisinopriL 10 MG TABLET PO SCH (18:00)
[2020-02-19] MEDS: lisinopriL 10 MG TABLET PO SCH (20:48)
[2020-02-20] MEDS: Budesonide/Formoterol 160/4.5 1 PUFF INH IH SCH ×3 (00:13→20:20)
[2020-02-20 07:09] LABS: INR 2.1; Prothrombin Time 24.4 Seconds (9.4-12.1)
[2020-02-20] MEDS: Insulin LISPRO 300 UNITS/3 ML VIAL SQ SCH ×4 (07:22→20:32)
[2020-02-20 08:18] LABS: Basophils % 0.7 %; Eosinophils % 2.6 %; Immature Granulocytes % 0.4 % (0-4)
[2020-02-20 08:19] LABS: Basophils # 0.1 K/mcL (0.0-0.2); Eosinophils # 0.2 K/mcL (0.0-0.6); Hematocrit 36.9 % (37.5-50.1); Hemoglobin 12.2 g/dL (12.9-16.9); Immature Platelets 4.6 % (1.1-6.1); Lymphocytes # 0.8 K/mcL (0.6-4.6); Lymphocytes % 9.9 %; Mean Corpuscular HGB Conc 33.1 g/dL (31.6-35.5); Mean Corpuscular Hemoglobin 31.1 pg (28.0-33.3); Mean Corpuscular Volume 94.1 fL (83.0-100.0); Mean Platelet Volume 10.6 fL (9.4-12.4); Monocytes # 0.8 K/mcL (0.0-1.3); Monocytes % 9.4 %; Neutrophils # 6.2 K/mcL (1.6-8.9); Platelet Count 125 K/mcL (140-400); Red Blood Count 3.92 M/mcL (4.19-5.50); White Blood Count 8.1 K/mcL (4.3-11.1)
[2020-02-20 08:44] LABS: BUN/Creatinine Ratio 27 (6-26); Blood Urea Nitrogen 31 mg/dL (8-23); Calcium 8.8 mg/dL (8.6-10.3); Carbon Dioxide 21 mEq/L (23-29); Chloride 105 mEq/L (98-107); Glucose 135 mg/dL (70-105); Osmolality,Calculated 293 (280-300); Potassium 3.8 mEq/L (3.5-5.1); Sodium 137 mEq/L (136-145); eGFR For African Americans > 60 (> 60); eGFR For Non-African Americans > 60 (> 60)
[2020-02-20] MEDS: Furosemide 40 MG/4 ML VIAL IVP SCH (09:18)
[2020-02-20] MEDS: gemfibroziL 600 MG TABLET PO SCH ×2 (09:20→20:48)
[2020-02-20] MEDS: Isosorbide MONOnitrate (24 HR) 60 MG TAB.ER.24H PO SCH (09:20)
[2020-02-20] MEDS: lisinopriL 20 MG TABLET PO SCH (09:20)
[2020-02-20] MEDS: Aspirin Enteric Coated 81 MG Tablet PO SCH (09:20)
[2020-02-20] MEDS: Cholecalciferol (D-3) 1,000 UNIT (25MCG) TABLET PO SCH (09:20)
[2020-02-20] MEDS: amLODIPine 5 MG TABLET PO SCH ×2 (09:20→20:48)
[2020-02-20] MEDS: aMILoride 5 MG TABLET PO SCH (09:54)
[2020-02-20] MEDS: Metoprolol 100 MG TABLET PO SCH ×2 (09:54→20:48)
[2020-02-20] MEDS ORDERED: Perflutren Lipid Microsphere 1.3 ML in 0.9 % Sodium Chloride 8.7 ML IVP ONE (10:15)
[2020-02-20] MEDS: Azithromycin 250 MG TABLET PO SCH (16:51)
[2020-02-20] MEDS: cefTRIAXone 1,000 MG in Water for inj. (sterile) 10 ML IVP SCH (17:01)
[2020-02-20] MEDS ORDERED: *HR* Warfarin 2.5 MG TABLET PO ONE (18:00)
[2020-02-20] MEDS: Insulin DETEMIR 100 UNIT/ML X5UNITS SQ SCH (20:48)
[2020-02-20] MEDS: Furosemide 20 MG TABLET PO SCH (20:48)
[2020-02-20] MEDS: lisinopriL 10 MG TABLET PO SCH (20:48)
[2020-02-21 05:51] LABS: Basophils # 0.1 K/mcL (0.0-0.2); Basophils % 1.1 %; Eosinophils # 0.4 K/mcL (0.0-0.6); Eosinophils % 5.8 %; Hematocrit 32.7 % (37.5-50.1); Hemoglobin 11.4 g/dL (12.9-16.9); Immature Granulocytes % 0.5 % (0-4); Lymphocytes # 0.8 K/mcL (0.6-4.6); Mean Corpuscular HGB Conc 34.9 g/dL (31.6-35.5); Mean Corpuscular Hemoglobin 32.8 pg (28.0-33.3); Mean Platelet Volume 10.7 fL (9.4-12.4); Monocytes # 0.6 K/mcL (0.0-1.3); Monocytes % 8.7 %; Neutrophils # 4.6 K/mcL (1.6-8.9); Platelet Count 135 K/mcL (140-400); Red Blood Count 3.48 M/mcL (4.19-5.50); Red Cell Distribution Width 13.9 % (11.5-14.5); Segmented Neutrophils % 71.9 %; White Blood Count 6.3 K/mcL (4.3-11.1)
[2020-02-21 05:55] LABS: Prothrombin Time 23.1 Seconds (9.4-12.1)
[2020-02-21 06:11] LABS: BUN/Creatinine Ratio 35 (6-26); Blood Urea Nitrogen 45 mg/dL (8-23); Calcium 8.7 mg/dL (8.6-10.3); Carbon Dioxide 23 mEq/L (23-29); Chloride 106 mEq/L (98-107); Glucose 139 mg/dL (70-105); Osmolality,Calculated 302 (280-300); Potassium 3.7 mEq/L (3.5-5.1); Sodium 139 mEq/L (136-145); eGFR For African Americans > 60 (> 60); eGFR For Non-African Americans 54 (> 60)
[2020-02-21] MEDS: Insulin LISPRO 300 UNITS/3 ML VIAL SQ SCH ×4 (07:26→20:23)
[2020-02-21] MEDS: Budesonide/Formoterol 160/4.5 1 PUFF INH IH SCH ×2 (07:53→20:03)
[2020-02-21] MEDS: Isosorbide MONOnitrate (24 HR) 60 MG TAB.ER.24H PO SCH (08:43)
[2020-02-21] MEDS: aMILoride 5 MG TABLET PO SCH (08:44)
[2020-02-21] MEDS: Aspirin Enteric Coated 81 MG Tablet PO SCH (08:45)
[2020-02-21] MEDS: amLODIPine 5 MG TABLET PO SCH ×2 (08:45→20:19)
[2020-02-21] MEDS: Metoprolol 100 MG TABLET PO SCH ×2 (08:45→20:19)
[2020-02-21] MEDS: lisinopriL 20 MG TABLET PO SCH (08:46)
[2020-02-21] MEDS: gemfibroziL 600 MG TABLET PO SCH ×2 (08:46→20:19)
[2020-02-21] MEDS: Cholecalciferol (D-3) 1,000 UNIT (25MCG) TABLET PO SCH (08:46)
[2020-02-21] MEDS ORDERED: Furosemide 40 MG TABLET PO SCH (09:00)
[2020-02-21] MEDS: cefTRIAXone 1,000 MG in Water for inj. (sterile) 10 ML IVP SCH (17:31)
[2020-02-21] MEDS: Azithromycin 250 MG TABLET PO SCH (17:32)
[2020-02-21] MEDS ORDERED: *HR* Warfarin 2.5 MG TABLET PO ONE (18:00)
[2020-02-21] MEDS: lisinopriL 10 MG TABLET PO SCH (20:19)
[2020-02-21] MEDS: Furosemide 20 MG TABLET PO SCH (20:19)
[2020-02-21] MEDS: Insulin DETEMIR 100 UNIT/ML X5UNITS SQ SCH (20:20)
[2020-02-22 02:18] LABS: Basophils # 0.1 K/mcL (0.0-0.2); Basophils % 1.4 %; Eosinophils # 0.4 K/mcL (0.0-0.6); Hematocrit 34.5 % (37.5-50.1); Hemoglobin 11.2 g/dL (12.9-16.9); Immature Granulocytes % 0.5 % (0-4); Lymphocytes # 0.8 K/mcL (0.6-4.6); Lymphocytes % 13.4 %; Mean Corpuscular HGB Conc 32.5 g/dL (31.6-35.5); Mean Corpuscular Hemoglobin 31.2 pg (28.0-33.3); Mean Corpuscular Volume 96.1 fL (83.0-100.0); Mean Platelet Volume 10.5 fL (9.4-12.4); Monocytes # 0.6 K/mcL (0.0-1.3); Monocytes % 9.1 %; Neutrophils # 4.4 K/mcL (1.6-8.9); Platelet Count 158 K/mcL (140-400); Red Blood Count 3.59 M/mcL (4.19-5.50); Red Cell Distribution Width 13.8 % (11.5-14.5); Segmented Neutrophils % 69.6 %; White Blood Count 6.3 K/mcL (4.3-11.1)
[2020-02-22 02:26] LABS: BUN/Creatinine Ratio 42 (6-26); Blood Urea Nitrogen 56 mg/dL (8-23); Calcium 8.6 mg/dL (8.6-10.3); Carbon Dioxide 23 mEq/L (23-29); Chloride 106 mEq/L (98-107); Glucose 160 mg/dL (70-105); Osmolality,Calculated 305 (280-300); Potassium 3.8 mEq/L (3.5-5.1); Sodium 138 mEq/L (136-145); eGFR For African Americans > 60 (> 60); eGFR For Non-African Americans 52 (> 60)
[2020-02-22 02:27] LABS: Prothrombin Time 22.4 Seconds (9.4-12.1)
[2020-02-22 07:13] VITALS: BP 144/74
[2020-02-22] MEDS: Insulin LISPRO 300 UNITS/3 ML VIAL SQ SCH (09:53)
[2020-02-22] MEDS: Budesonide/Formoterol 160/4.5 1 PUFF INH IH SCH (10:29)
== END 2020-02-22 10:29 | disposition home or self-care (01) | DRG 871 ==
LOC: EMEROOARM 10:33 → 2NENU 10:33 → 3BNU 02-19 20:12
PROVIDERS: ADMIT Internal Medicine; ATTEND Internal Medicine

== ENCOUNTER 2020-08-13 00:05 | Inpatient (IN) ==
[2020-08-13] MEDS ORDERED: 0.9 % Sodium Chloride 1,000 ML IVC ONE (00:39)
[2020-08-13] MEDS ORDERED: *HR* Dextrose 50 % in Water (Vial) 50 ML VIAL IVP ONE ×2 (00:54→03:05)
[2020-08-13] MEDS ORDERED: *HR* Dextrose 50 % in Water (Vial) 50 ML VIAL ONE (00:59)
[2020-08-13 01:17] LABS: Basophils # 0.1 K/mcL (0.0-0.2); Basophils % 0.8 %; Eosinophils # 0.4 K/mcL (0.0-0.6); Eosinophils % 5.5 %; Hematocrit 34.2 % (37.5-50.1); Hemoglobin 10.7 g/dL (12.9-16.9); Immature Granulocytes % 0.5 % (0-4); Lymphocytes # 0.6 K/mcL (0.6-4.6); Lymphocytes % 9.3 %; Mean Corpuscular HGB Conc 31.3 g/dL (31.6-35.5); Mean Corpuscular Hemoglobin 30.1 pg (28.0-33.3); Mean Corpuscular Volume 96.3 fL (83.0-100.0); Mean Platelet Volume 10.2 fL (9.4-12.4); Monocytes # 0.6 K/mcL (0.0-1.3); Neutrophils # 4.7 K/mcL (1.6-8.9); Platelet Count 235 K/mcL (140-400); Red Blood Count 3.55 M/mcL (4.19-5.50); Red Cell Distribution Width 16.4 % (11.5-14.5); Segmented Neutrophils % 74.9 %; White Blood Count 6.3 K/mcL (4.3-11.1)
[2020-08-13 02:04] LABS: Adenovirus Not Detected (Not Detect); Bordetella Pertussis Not Detected (Not Detect); Chlamydophila pneumoniae Not Detected (Not Detect); Coronavirus 229E Not Detected (Not Detect); Coronavirus HKU1 Not Detected (Not Detect); Coronavirus NL63 Not Detected (Not Detect); Coronavirus OC43 Not Detected (Not Detect); Human Metapneumovirus Not Detected (Not Detect); Human Rhinovirus/Enterovirus Not Detected (Not Detect); Influenza A Subtype 2009 H1 Not Detected (Not Detect); Influenza B Not Detected (Not Detect); Mycoplasma pneumoniae Not Detected (Not Detect); Parainfluenza Virus 1 Not Detected (Not Detect); Parainfluenza Virus 2 Not Detected (Not Detect); Parainfluenza Virus 3 Not Detected (Not Detect); Parainfluenza Virus 4 Not Detected (Not Detect); Respiratory Syncytial Virus Not Detected (Not Detect); SARS-CoV-2 Not Detected (Not Detect)
[2020-08-13 02:15] LABS: INR 3.5; Prothrombin Time 39.6 Seconds (9.4-12.1)
[2020-08-13 02:39] LABS: VBG HCO3 18 mEq/L (21-27); VBG PCO2 43 mmHg (41-51); VBG PH 7.23 pH Units (7.32-7.42); VBG PO2 82 mmHg (25-50)
[2020-08-13 02:44] LABS: Bilirubin,Urine Negative (Negative); Blood,Urine Negative (Negative); Clarity,Urine Clear (Clear); Color,Urine Yellow (Yellow); Glucose,Urine (UA) Normal (Normal); Ketones,Urine Negative (Negative); Leukocyte Esterase,Urine Negative (Negative); Nitrite,Urine Negative (Negative); PH,Urine 5.5 pH Units (5.0-8.0); Protein,Urine Negative (Neg-Trace); Specific Gravity,Urine 1.014 (1.010-1.025)
[2020-08-13] MEDS ORDERED: Insulin Human Regular 10 UNIT in 0.9 % Sodium Chloride 10 ML IV ONE (03:00)
[2020-08-13 03:01] LABS: Alanine Aminotransferase 55 Units/L (7-52); Albumin 3.5 g/dL (3.5-5.7); Albumin/Globulin Ratio 0.7 (1.1-2.2); Alkaline Phosphatase 243 Units/L (34-104); Aspartate Amino Transferase 91 Units/L (13-39); BUN/Creatinine Ratio 23 (6-26); Bilirubin,Total 3.4 mg/dL (0.3-1.0); Blood Urea Nitrogen 106 mg/dL (8-23); Calcium 9.7 mg/dL (8.6-10.3); Carbon Dioxide 15 mEq/L (23-29); Chloride 103 mEq/L (98-107); Globulin 4.9 g/dL (2.4-3.5); Glucose 46 mg/dL (70-105); Osmolality,Calculated 308 (280-300); Potassium 6.8 mEq/L (3.5-5.1); Sodium 134 mEq/L (136-145); Total Protein 8.4 g/dL (6.4-8.9); Troponin I < 0.03 ng/mL (< 0.04); eGFR For African Americans 15 (> 60); eGFR For Non-African Americans 12 (> 60)
[2020-08-13] MEDS ORDERED: Albuterol 2.5 MG/3 ML NEBULIZER IH ONE (03:03)
[2020-08-13] MEDS: Calcium Gluconate 1gm/50mL 1 GM/50 ML BAG IVPB PRN ×2 (03:27→04:09)
[2020-08-13 03:56] LABS: Thyroid Stimulating Hormone 2.704 mcIU/mL (0.340-5.600)
[2020-08-13] MEDS ORDERED: 0.9 % Sodium Chloride 1,000 ML IVC STA (04:28)
[2020-08-13] MEDS ORDERED: Sodium Bicarbonate 75 MEQ in 0.45 % Sodium Chloride 1,000 ML IVC SCH (04:30)
[2020-08-13] MEDS ORDERED: SODIUM ZIRCONIUM CYCLOSILICATE 5 GM POWD.PACK PO ONE (05:10)
[2020-08-13 05:31] LABS: Calcium 9.8 mg/dL (8.6-10.3); Potassium 5.4 mEq/L (3.5-5.1)
[2020-08-13] MEDS ORDERED: Ondansetron 4 MG/2 ML VIAL IVP PRN ×2 (05:39→08:10)
[2020-08-13] MEDS ORDERED: Naloxone 0.4 MG/ML INJ IVP PRN (05:39)
[2020-08-13] MEDS ORDERED: *HR* Promethazine 25 MG/ML VIAL IM PRN (05:39)
[2020-08-13] MEDS ORDERED: Dextrose Gel 15 GM/37.5 ML TUBE PO PRN ×2 (05:40)
[2020-08-13] MEDS ORDERED: *HR* Dextrose 50 % in Water (Vial) 50 ML VIAL IVP PRN (05:40)
[2020-08-13] MEDS ORDERED: D5% in Water 1,000 ML IVC PRN (05:40)
[2020-08-13] MEDS ORDERED: Ondansetron ODT 4 MG TAB.RAPDIS SL PRN (07:32)
[2020-08-13] MEDS ORDERED: Azithromycin 250 MG TABLET PO SCH (09:00)
[2020-08-13] MEDS: Isosorbide MONOnitrate (24 HR) 60 MG TAB.ER.24H PO SCH (09:27)
[2020-08-13] MEDS: Metoprolol 100 MG TABLET PO SCH ×2 (09:27→21:15)
[2020-08-13] MEDS: amLODIPine 5 MG TABLET PO SCH ×2 (09:27→21:15)
[2020-08-13] MEDS: Aspirin Enteric Coated 81 MG Tablet PO SCH (09:27)
[2020-08-13 10:49] LABS: Calcium 9.2 mg/dL (8.6-10.3)
[2020-08-13 11:42] LABS: Uric Acid 13.3 mg/dL (2.3-7.6)
[2020-08-13 11:50] LABS: Adenovirus Not Detected (Not Detect); Bordetella Pertussis Not Detected (Not Detect); Chlamydophila pneumoniae Not Detected (Not Detect); Coronavirus 229E Not Detected (Not Detect); Coronavirus HKU1 Not Detected (Not Detect); Coronavirus NL63 Not Detected (Not Detect); Coronavirus OC43 Not Detected (Not Detect); Human Metapneumovirus Not Detected (Not Detect); Human Rhinovirus/Enterovirus Not Detected (Not Detect); Influenza A Subtype 2009 H1 Not Detected (Not Detect); Influenza B Not Detected (Not Detect); Mycoplasma pneumoniae Not Detected (Not Detect); Parainfluenza Virus 1 Not Detected (Not Detect); Parainfluenza Virus 2 Not Detected (Not Detect); Parainfluenza Virus 3 Not Detected (Not Detect); Parainfluenza Virus 4 Not Detected (Not Detect); Respiratory Syncytial Virus Not Detected (Not Detect); SARS-CoV-2 Not Detected (Not Detect)
[2020-08-13] MEDS ORDERED: Sodium Bicarbonate 150 MEQ in D5% in Water 1,000 ML IVC SCH (16:00)
[2020-08-13 17:16] LABS: Calcium 9.1 mg/dL (8.6-10.3)
[2020-08-13] MEDS: SODIUM ZIRCONIUM CYCLOSILICATE 5 GM POWD.PACK PO SCH (17:53)
[2020-08-13] MEDS ORDERED: Warfarin perPT PO SCH (18:00)
[2020-08-14 04:15] LABS: Bilirubin,Urine Negative (Negative); Blood,Urine Large (Negative); Clarity,Urine Clear (Clear); Color,Urine Yellow (Yellow); Glucose,Urine (UA) Normal (Normal); Ketones,Urine Negative (Negative); Leukocyte Esterase,Urine Negative (Negative); Nitrite,Urine Negative (Negative); Protein,Urine Negative (Neg-Trace); RBC,Urine TNTC per hpf (0-3); Specific Gravity,Urine 1.012 (1.010-1.025); Squamous Epithelial Cell,Urine Few per hpf (None-Few); WBC,Urine 0-3 per hpf (0-3)
[2020-08-14 04:18] LABS: Basophils # 0.1 K/mcL (0.0-0.2); Eosinophils # 0.3 K/mcL (0.0-0.6); Hematocrit 29.1 % (37.5-50.1); Hemoglobin 9.3 g/dL (12.9-16.9); Immature Granulocytes % 0.4 % (0-4); Lymphocytes # 0.4 K/mcL (0.6-4.6); Lymphocytes % 8.4 %; Mean Corpuscular Hemoglobin 30.2 pg (28.0-33.3); Mean Corpuscular Volume 94.5 fL (83.0-100.0); Mean Platelet Volume 10.4 fL (9.4-12.4); Monocytes # 0.5 K/mcL (0.0-1.3); Neutrophils # 3.8 K/mcL (1.6-8.9); Platelet Count 166 K/mcL (140-400); Red Blood Count 3.08 M/mcL (4.19-5.50); Red Cell Distribution Width 16.6 % (11.5-14.5); Segmented Neutrophils % 76.2 %
[2020-08-14 04:29] LABS: INR 5.2; Prothrombin Time 57.3 Seconds (9.4-12.1)
[2020-08-14 04:33] LABS: Complement C3 145 mg/dL (87-200)
[2020-08-14] MEDS: Aspirin Enteric Coated 81 MG Tablet PO SCH (09:10)
[2020-08-14] MEDS: Isosorbide MONOnitrate (24 HR) 60 MG TAB.ER.24H PO SCH (09:10)
[2020-08-14] MEDS: amLODIPine 5 MG TABLET PO SCH ×2 (09:11→21:51)
[2020-08-14] MEDS: SODIUM ZIRCONIUM CYCLOSILICATE 5 GM POWD.PACK PO SCH (09:11)
[2020-08-14] MEDS: Metoprolol 100 MG TABLET PO SCH ×2 (09:11→21:51)
[2020-08-14 11:55] LABS: Protein/Creatinine Ratio,Urine 0.27 mg/mg (0.00-0.20); Sodium, Urine 55.2 mEq/L
[2020-08-14 13:20] LABS: Calcium 8.9 mg/dL (8.6-10.3); Potassium 5.2 mEq/L (3.5-5.1)
[2020-08-15 07:07] LABS: Basophils % 0.7 %; Eosinophils # 0.2 K/mcL (0.0-0.6); Eosinophils % 4.3 %; Hematocrit 33.4 % (37.5-50.1); Hemoglobin 10.1 g/dL (12.9-16.9); Immature Granulocytes % 0.6 % (0-4); Lymphocytes # 0.5 K/mcL (0.6-4.6); Lymphocytes % 8.9 %; Mean Corpuscular HGB Conc 30.2 g/dL (31.6-35.5); Mean Corpuscular Hemoglobin 29.7 pg (28.0-33.3); Mean Corpuscular Volume 98.2 fL (83.0-100.0); Mean Platelet Volume 10.7 fL (9.4-12.4); Monocytes # 0.6 K/mcL (0.0-1.3); Monocytes % 10.7 %; Neutrophils # 4.1 K/mcL (1.6-8.9); Platelet Count 150 K/mcL (140-400); Red Cell Distribution Width 16.8 % (11.5-14.5); Segmented Neutrophils % 74.8 %; White Blood Count 5.4 K/mcL (4.3-11.1)
[2020-08-15 07:16] LABS: INR 3.4; Prothrombin Time 37.9 Seconds (9.4-12.1)
[2020-08-15 07:30] LABS: Calcium 9.2 mg/dL (8.6-10.3); Magnesium 2.4 mg/dL (1.6-2.6); Phosphorous 3.4 mg/dL (2.7-4.5); Potassium 4.9 mEq/L (3.5-5.1)
[2020-08-15] MEDS: Aspirin Enteric Coated 81 MG Tablet PO SCH (08:59)
[2020-08-15] MEDS ORDERED: Sodium Bicarbonate 150 MEQ in D5% in Water 1,000 ML IVC SCH (13:15)
[2020-08-15] MEDS ORDERED: Triamcinolone Acet 0.1% CRM 15 GM TUBE TP PRN (13:29)
[2020-08-15 16:25] LABS: ABG Base Excess -3 mEq/L (-2 to 3); ABG HCO3 21 mEq/L (21-27); ABG Oxygen Saturation 95 % (95-98); ABG PCO2 30 mmHg (35-45); ABG PH 7.45 pH Units (7.32-7.45); ABG PO2 73 mmHg (85-104); ABG TCO2 22 mEq/L (20-26)
[2020-08-15] MEDS: Metoprolol 100 MG TABLET PO SCH (20:54)
[2020-08-16 01:25] LABS: Calcium 8.6 mg/dL (8.6-10.3); Potassium 4.5 mEq/L (3.5-5.1)
[2020-08-16 01:52] LABS: INR 2.9; Prothrombin Time 33.1 Seconds (9.4-12.1)
[2020-08-16] MEDS: Aspirin Enteric Coated 81 MG Tablet PO SCH (09:31)
[2020-08-16] MEDS: Metoprolol 100 MG TABLET PO SCH (09:32)
[2020-08-16 14:57] VITALS: BP 98/62
[2020-08-16] MEDS ORDERED: *HR* Warfarin 1 MG TABLET PO ONE (18:00)
[2020-08-18 14:34] LABS: Alpha 2 Globulin (PEP) 0.82 g/dL (0.48-1.05)
[2020-08-18 15:25] LABS: IFE Reflexed NOT DONE
[2020-08-19 05:39] LABS: Urine Collection Volume RANDOM mL
== END 2020-08-16 16:05 | disposition home health service (06) | DRG 683 ==
LOC: 2ANU 00:05 → EMEROOARM 00:05 → 2ANU 05:31 → SUATTDRO 17:29
PROVIDERS: ADMIT Internal Medicine; ATTEND Internal Medicine

== ENCOUNTER 2020-08-26 18:47 | Observation (INO) ==
[2020-08-26 19:39] LABS: Basophils # 0.1 K/mcL (0.0-0.2); Basophils % 1.5 %; Eosinophils # 0.2 K/mcL (0.0-0.6); Eosinophils % 5.8 %; Hematocrit 23.3 % (37.5-50.1); Hemoglobin 7.1 g/dL (12.9-16.9); Immature Granulocytes % 1.2 % (0-4); Lymphocytes # 0.5 K/mcL (0.6-4.6); Lymphocytes % 10.9 %; Mean Corpuscular HGB Conc 30.5 g/dL (31.6-35.5); Mean Corpuscular Hemoglobin 29.7 pg (28.0-33.3); Mean Corpuscular Volume 97.5 fL (83.0-100.0); Mean Platelet Volume 10.6 fL (9.4-12.4); Monocytes # 0.4 K/mcL (0.0-1.3); Neutrophils # 2.9 K/mcL (1.6-8.9); Platelet Count 337 K/mcL (140-400); Red Blood Count 2.39 M/mcL (4.19-5.50); Segmented Neutrophils % 71.6 %; White Blood Count 4.1 K/mcL (4.3-11.1)
[2020-08-26 20:09] LABS: Alanine Aminotransferase 90 Units/L (7-52); Albumin 2.7 g/dL (3.5-5.7); Albumin/Globulin Ratio 0.7 (1.1-2.2); Alkaline Phosphatase 326 Units/L (34-104); Aspartate Amino Transferase 90 Units/L (13-39); BUN/Creatinine Ratio 19 (6-26); Bilirubin,Direct 2.1 mg/dL (0.0-0.2); Bilirubin,Indirect 1.5 mg/dL (0.0-1.0); Bilirubin,Total 3.6 mg/dL (0.3-1.0); Blood Urea Nitrogen 64 mg/dL (8-23); Calcium 8.7 mg/dL (8.6-10.3); Carbon Dioxide 12 mEq/L (23-29); Chloride 110 mEq/L (98-107); Creatine Kinase 34 Units/L (30-223); Ethanol < 10 mg/dL (Less than 10); Globulin 4.1 g/dL (2.4-3.5); Glucose 153 mg/dL (70-105); Osmolality,Calculated 295 (280-300); Potassium 7.5 mEq/L (3.5-5.1); Sodium 132 mEq/L (136-145); Total Protein 6.8 g/dL (6.4-8.9); Troponin I < 0.03 ng/mL (< 0.04); eGFR For African Americans 22 (> 60); eGFR For Non-African Americans 18 (> 60)
[2020-08-26] MEDS ORDERED: 0.9 % Sodium Chloride 500 ML IVC ONE (20:14)
[2020-08-26] MEDS ORDERED: Calcium Gluconate 1,000 MG/10 ML VIAL IVP STA (20:14)
[2020-08-26] MEDS ORDERED: Insulin Human Regular 10 UNIT in 0.9 % Sodium Chloride 10 ML IV ONE (20:14)
[2020-08-26] MEDS ORDERED: *HR* Dextrose 50 % in Water (Vial) 50 ML VIAL IVP ONE (20:14)
[2020-08-26 21:04] LABS: INR 1.7; Prothrombin Time 19.9 Seconds (9.4-12.1)
[2020-08-26 21:58] LABS: Bilirubin,Urine Negative (Negative); Blood,Urine Negative (Negative); Clarity,Urine Clear (Clear); Color,Urine Yellow (Yellow); Glucose,Urine (UA) Normal (Normal); Ketones,Urine Negative (Negative); Leukocyte Esterase,Urine Negative (Negative); Nitrite,Urine Negative (Negative); Protein,Urine Negative (Neg-Trace); Specific Gravity,Urine 1.012 (1.010-1.025)
[2020-08-26 22:11] LABS: Amphetamine Screen,Urine Negative ng/mL (Cutoff=1000); Barbiturate Screen,Urine Negative ng/mL (Cutoff=200); Benzodiazepines Screen,Urine Negative ng/mL (Cutoff=200); Cannabinoid Screen,Urine Negative ng/mL (Cutoff = 50); Cocaine Screen,Urine Negative ng/mL (Cutoff= 300); Opiate Screen,Urine Negative ng/mL (Cutoff=300); Phencyclidine Screen,Urine Negative ng/mL (Cutoff=25)
[2020-08-26] MEDS ORDERED: Lactulose Oral Soln 20 GM/30 ML UDC PO ONE (22:42)
[2020-08-26] MEDS ORDERED: Naloxone 0.4 MG/ML INJ IVP PRN (23:01)
[2020-08-26] MEDS ORDERED: Dextrose Gel 15 GM/37.5 ML TUBE PO PRN ×2 (23:11)
[2020-08-26] MEDS ORDERED: D5% in Water 1,000 ML IVC PRN (23:11)
[2020-08-27] MEDS: 0.9 % Sodium Chloride 1,000 ML IVC SCH ×2 (00:40→10:34)
[2020-08-27 01:14] LABS: Influenza A PCR Negative (Negative); Influenza B PCR Negative (Negative); Resp. Syncytial Virus PCR Negative (Negative)
[2020-08-27 01:21] LABS: SARS-CoV-2 by PCR (In House) Negative (Negative)
[2020-08-27 01:22] LABS: Calcium 8.7 mg/dL (8.6-10.3); Potassium 6.7 mEq/L (3.5-5.1)
[2020-08-27] MEDS: *HR* Dextrose 50 % in Water (Vial) 50 ML VIAL IVP PRN (02:46)
[2020-08-27] MEDS ORDERED: Calcium Gluconate 1gm/50mL 1 GM/50 ML BAG IVPB ONE (02:53)
[2020-08-27] MEDS ORDERED: Lactulose Oral Soln 20 GM/30 ML UDC PO ONE (02:54)
[2020-08-27] MEDS: Insulin LISPRO 300 UNITS/3 ML VIAL SUBQ SCH ×5 (03:03→20:49)
[2020-08-27] MEDS: Ondansetron ODT 4 MG TAB.RAPDIS SL PRN (03:59)
[2020-08-27 05:58] LABS: Albumin 2.7 g/dL (3.5-5.7); Albumin/Globulin Ratio 0.7 (1.1-2.2); Bilirubin,Total 3.7 mg/dL (0.3-1.0); Calcium 9.2 mg/dL (8.6-10.3); Globulin 4.1 g/dL (2.4-3.5); Magnesium 2.7 mg/dL (1.6-2.6); Phosphorous 4.2 mg/dL (2.7-4.5); Potassium 6.5 mEq/L (3.5-5.1); Total Protein 6.8 g/dL (6.4-8.9)
[2020-08-27 06:05] LABS: Thyroid Stimulating Hormone 2.923 mcIU/mL (0.340-5.600)
[2020-08-27] MEDS ORDERED: SODIUM ZIRCONIUM CYCLOSILICATE 5 GM POWD.PACK PO ONE (10:48)
[2020-08-27 11:07] LABS: Creatinine,Urine 44 mg/dL; Sodium, Urine 85.3 mEq/L
[2020-08-27 12:25] LABS: Uric Acid 11.6 mg/dL (2.3-7.6)
[2020-08-27] MEDS: Nystatin POWDER 30 GM BOTTLE TP SCH ×3 (12:34→20:51)
[2020-08-27] MEDS: Lactulose Oral Soln 20 GM/30 ML UDC PO SCH ×2 (17:33→20:51)
[2020-08-27 17:37] LABS: Calcium 8.8 mg/dL (8.6-10.3); Potassium 6.3 mEq/L (3.5-5.1)
[2020-08-28 05:04] LABS: Hemoglobin 7.1 g/dL (12.9-16.9)
[2020-08-28 05:05] LABS: Basophils % 0.8 %; Eosinophils # 0.2 K/mcL (0.0-0.6); Eosinophils % 5.8 %; Immature Granulocytes % 0.5 % (0-4); Lymphocytes # 0.4 K/mcL (0.6-4.6); Lymphocytes % 10.3 %; Mean Corpuscular HGB Conc 29.6 g/dL (31.6-35.5); Mean Corpuscular Hemoglobin 30.1 pg (28.0-33.3); Mean Corpuscular Volume 101.7 fL (83.0-100.0); Mean Platelet Volume 10.1 fL (9.4-12.4); Monocytes # 0.3 K/mcL (0.0-1.3); Monocytes % 8.7 %; Neutrophils # 2.8 K/mcL (1.6-8.9); Platelet Count 321 K/mcL (140-400); Red Blood Count 2.36 M/mcL (4.19-5.50); Red Cell Distribution Width 17.3 % (11.5-14.5); Segmented Neutrophils % 73.9 %; White Blood Count 3.8 K/mcL (4.3-11.1)
[2020-08-28 05:06] LABS: INR 1.7; Prothrombin Time 19.4 Seconds (9.4-12.1)
[2020-08-28 05:24] LABS: Albumin 2.7 g/dL (3.5-5.7); Albumin/Globulin Ratio 0.7 (1.1-2.2); Bilirubin,Indirect 1.4 mg/dL (0.0-1.0); Bilirubin,Total 3.4 mg/dL (0.3-1.0); Calcium 8.9 mg/dL (8.6-10.3); Potassium 5.9 mEq/L (3.5-5.1); Total Protein 6.7 g/dL (6.4-8.9)
[2020-08-28] MEDS: *HR* Dextrose 50 % in Water (Vial) 50 ML VIAL IVP PRN ×2 (06:04→19:54)
[2020-08-28] MEDS: Insulin LISPRO 300 UNITS/3 ML VIAL SUBQ SCH ×4 (08:19→20:00)
[2020-08-28] MEDS: Nystatin POWDER 30 GM BOTTLE TP SCH ×3 (09:01→21:00)
[2020-08-28] MEDS: Lactulose Oral Soln 20 GM/30 ML UDC PO SCH ×2 (09:01→20:10)
[2020-08-28] MEDS: Cholecalciferol (D-3) 1,000 UNIT (25MCG) TABLET PO SCH (12:15)
[2020-08-28] MEDS: SODIUM ZIRCONIUM CYCLOSILICATE 5 GM POWD.PACK PO SCH (12:15)
[2020-08-28] MEDS: Aspirin Enteric Coated 81 MG Tablet PO SCH (12:15)
[2020-08-28] MEDS: gemfibroziL 600 MG TABLET PO SCH (20:10)
[2020-08-28] MEDS: traZODone 50 MG TABLET PO SCH (20:10)
[2020-08-28] MEDS ORDERED: Insulin LISPRO 300 UNITS/3 ML VIAL SUBQ SCH (22:41)
[2020-08-29] MEDS: *HR* Dextrose 50 % in Water (Vial) 50 ML VIAL IVP PRN (01:21)
[2020-08-29] MEDS: Insulin LISPRO 300 UNITS/3 ML VIAL SUBQ SCH ×2 (07:54→12:15)
[2020-08-29] MEDS: SODIUM ZIRCONIUM CYCLOSILICATE 5 GM POWD.PACK PO SCH (08:03)
[2020-08-29] MEDS: Lactulose Oral Soln 20 GM/30 ML UDC PO SCH ×2 (08:03→20:41)
[2020-08-29] MEDS: gemfibroziL 600 MG TABLET PO SCH ×2 (08:04→19:57)
[2020-08-29] MEDS: Cholecalciferol (D-3) 1,000 UNIT (25MCG) TABLET PO SCH (08:04)
[2020-08-29] MEDS: Aspirin Enteric Coated 81 MG Tablet PO SCH (08:04)
[2020-08-29 08:32] LABS: Basophils # 0.1 K/mcL (0.0-0.2); Basophils % 0.8 %; Eosinophils # 0.3 K/mcL (0.0-0.6); Eosinophils % 4.1 %; Hematocrit 25.8 % (37.5-50.1); Hemoglobin 7.6 g/dL (12.9-16.9); Immature Granulocytes % 0.5 % (0-4); Lymphocytes # 0.4 K/mcL (0.6-4.6); Lymphocytes % 5.7 %; Mean Corpuscular HGB Conc 29.5 g/dL (31.6-35.5); Mean Corpuscular Hemoglobin 29.2 pg (28.0-33.3); Mean Corpuscular Volume 99.2 fL (83.0-100.0); Monocytes # 0.5 K/mcL (0.0-1.3); Monocytes % 7.5 %; Neutrophils # 5.3 K/mcL (1.6-8.9); Platelet Count 322 K/mcL (140-400); Red Cell Distribution Width 16.8 % (11.5-14.5); Segmented Neutrophils % 81.4 %
[2020-08-29 08:33] LABS: White Blood Count 6.5 K/mcL (4.3-11.1)
[2020-08-29 08:49] LABS: Calcium 8.7 mg/dL (8.6-10.3); Potassium 5.8 mEq/L (3.5-5.1)
[2020-08-29] MEDS: Nystatin POWDER 30 GM BOTTLE TP SCH ×3 (09:00→20:07)
[2020-08-29 15:35] LABS: INR 1.7
[2020-08-29] MEDS ORDERED: Warfarin perPT PO PRN (18:00)
[2020-08-29] MEDS ORDERED: *HR* Warfarin 2 MG TABLET PO ONE (18:02)
[2020-08-29] MEDS: traZODone 50 MG TABLET PO SCH (19:57)
[2020-08-30 01:59] LABS: Basophils % 0.6 %; Eosinophils # 0.3 K/mcL (0.0-0.6); Eosinophils % 3.9 %; Hematocrit 22.7 % (37.5-50.1); Hemoglobin 6.8 g/dL (12.9-16.9); Immature Granulocytes % 0.4 % (0-4); Lymphocytes # 0.5 K/mcL (0.6-4.6); Lymphocytes % 6.8 %; Mean Corpuscular Hemoglobin 29.7 pg (28.0-33.3); Mean Corpuscular Volume 99.1 fL (83.0-100.0); Mean Platelet Volume 10.2 fL (9.4-12.4); Monocytes # 0.5 K/mcL (0.0-1.3); Monocytes % 7.6 %; Neutrophils # 5.6 K/mcL (1.6-8.9); Platelet Count 278 K/mcL (140-400); Red Blood Count 2.29 M/mcL (4.19-5.50); Red Cell Distribution Width 16.7 % (11.5-14.5); Segmented Neutrophils % 80.7 %; White Blood Count 6.9 K/mcL (4.3-11.1)
[2020-08-30 02:03] LABS: INR 1.7
[2020-08-30 02:19] LABS: Albumin 2.4 g/dL (3.5-5.7); Albumin/Globulin Ratio 0.6 (1.1-2.2); Bilirubin,Indirect 1.3 mg/dL (0.0-1.0); Bilirubin,Total 3.3 mg/dL (0.3-1.0); Calcium 8.4 mg/dL (8.6-10.3); Globulin 3.8 g/dL (2.4-3.5); Total Protein 6.2 g/dL (6.4-8.9)
[2020-08-30] MEDS: Aspirin Enteric Coated 81 MG Tablet PO SCH (07:55)
[2020-08-30] MEDS: SODIUM ZIRCONIUM CYCLOSILICATE 5 GM POWD.PACK PO SCH (07:56)
[2020-08-30] MEDS: Lactulose Oral Soln 20 GM/30 ML UDC PO SCH ×2 (07:56→20:20)
[2020-08-30] MEDS: Cholecalciferol (D-3) 1,000 UNIT (25MCG) TABLET PO SCH (07:56)
[2020-08-30] MEDS: gemfibroziL 600 MG TABLET PO SCH ×2 (07:56→20:19)
[2020-08-30] MEDS: Nystatin POWDER 30 GM BOTTLE TP SCH ×3 (07:57→20:35)
[2020-08-30] MEDS ORDERED: 0.9 % Sodium Chloride 250 ML ONE (13:02)
[2020-08-30] MEDS: traZODone 50 MG TABLET PO SCH (20:20)
[2020-08-31 03:23] LABS: Basophils % 0.4 %; Eosinophils # 0.2 K/mcL (0.0-0.6); Eosinophils % 2.8 %; Hematocrit 25.8 % (37.5-50.1); Hemoglobin 7.9 g/dL (12.9-16.9); Immature Granulocytes % 1.1 % (0-4); Lymphocytes # 0.5 K/mcL (0.6-4.6); Lymphocytes % 6.9 %; Mean Corpuscular HGB Conc 30.6 g/dL (31.6-35.5); Mean Corpuscular Hemoglobin 29.7 pg (28.0-33.3); Mean Platelet Volume 10.1 fL (9.4-12.4); Monocytes # 0.6 K/mcL (0.0-1.3); Monocytes % 7.5 %; Neutrophils # 6.4 K/mcL (1.6-8.9); Platelet Count 261 K/mcL (140-400); Red Blood Count 2.66 M/mcL (4.19-5.50); Red Cell Distribution Width 16.5 % (11.5-14.5); Segmented Neutrophils % 81.3 %; White Blood Count 7.8 K/mcL (4.3-11.1)
[2020-08-31 03:30] LABS: INR 1.9; Prothrombin Time 22.1 Seconds (9.4-12.1)
[2020-08-31 03:46] LABS: Albumin 2.5 g/dL (3.5-5.7); Albumin/Globulin Ratio 0.7 (1.1-2.2); Bilirubin,Direct 2.1 mg/dL (0.0-0.2); Bilirubin,Indirect 1.5 mg/dL (0.0-1.0); Bilirubin,Total 3.6 mg/dL (0.3-1.0); Calcium 8.4 mg/dL (8.6-10.3); Globulin 3.8 g/dL (2.4-3.5); Magnesium 2.2 mg/dL (1.6-2.6); Potassium 6.1 mEq/L (3.5-5.1); Total Protein 6.3 g/dL (6.4-8.9)
[2020-08-31] MEDS: SODIUM ZIRCONIUM CYCLOSILICATE 5 GM POWD.PACK PO SCH (08:25)
[2020-08-31] MEDS: gemfibroziL 600 MG TABLET PO SCH ×2 (08:28→20:30)
[2020-08-31] MEDS: Aspirin Enteric Coated 81 MG Tablet PO SCH (08:28)
[2020-08-31] MEDS: Cholecalciferol (D-3) 1,000 UNIT (25MCG) TABLET PO SCH (08:28)
[2020-08-31] MEDS: Nystatin POWDER 30 GM BOTTLE TP SCH ×3 (08:29→20:31)
[2020-08-31] MEDS: Lactulose Oral Soln 20 GM/30 ML UDC PO SCH ×2 (08:47→20:31)
[2020-08-31] MEDS: Sodium Bicarbonate 150 MEQ in D5% in Water 1,000 ML IVC SCH (15:54)
[2020-08-31] MEDS: traZODone 50 MG TABLET PO SCH (20:31)
[2020-09-01 06:44] LABS: INR 1.9
[2020-09-01 06:46] LABS: Basophils # 0.1 K/mcL (0.0-0.2); Eosinophils # 0.2 K/mcL (0.0-0.6); Eosinophils % 3.1 %; Hematocrit 24.1 % (37.5-50.1); Hemoglobin 7.3 g/dL (12.9-16.9); Immature Granulocytes % 0.6 % (0-4); Lymphocytes # 0.4 K/mcL (0.6-4.6); Lymphocytes % 8.3 %; Mean Corpuscular HGB Conc 30.3 g/dL (31.6-35.5); Mean Corpuscular Hemoglobin 29.3 pg (28.0-33.3); Mean Corpuscular Volume 96.8 fL (83.0-100.0); Mean Platelet Volume 10.8 fL (9.4-12.4); Monocytes # 0.6 K/mcL (0.0-1.3); Neutrophils # 3.9 K/mcL (1.6-8.9); Platelet Count 227 K/mcL (140-400); Red Blood Count 2.49 M/mcL (4.19-5.50); Red Cell Distribution Width 16.7 % (11.5-14.5); White Blood Count 5.2 K/mcL (4.3-11.1)
[2020-09-01 07:12] LABS: Albumin 2.3 g/dL (3.5-5.7); Albumin/Globulin Ratio 0.7 (1.1-2.2); Bilirubin,Indirect 1.3 mg/dL (0.0-1.0); Bilirubin,Total 3.3 mg/dL (0.3-1.0); Globulin 3.5 g/dL (2.4-3.5); Magnesium 2.1 mg/dL (1.6-2.6); Potassium 5.6 mEq/L (3.5-5.1); Total Protein 5.8 g/dL (6.4-8.9)
[2020-09-01 07:13] LABS: Phosphorous 3.8 mg/dL (2.7-4.5); Uric Acid 9.2 mg/dL (2.3-7.6)
[2020-09-01] MEDS: SODIUM ZIRCONIUM CYCLOSILICATE 5 GM POWD.PACK PO SCH (07:49)
[2020-09-01] MEDS: Nystatin POWDER 30 GM BOTTLE TP SCH ×3 (07:49→21:22)
[2020-09-01] MEDS: Cholecalciferol (D-3) 1,000 UNIT (25MCG) TABLET PO SCH (07:49)
[2020-09-01] MEDS: Aspirin Enteric Coated 81 MG Tablet PO SCH (07:49)
[2020-09-01] MEDS: gemfibroziL 600 MG TABLET PO SCH ×2 (07:50→21:21)
[2020-09-01] MEDS: Lactulose Oral Soln 20 GM/30 ML UDC PO SCH ×2 (07:50→21:20)
[2020-09-01] MEDS: Sodium Bicarbonate 150 MEQ in D5% in Water 1,000 ML IVC SCH (20:13)
[2020-09-01] MEDS: traZODone 50 MG TABLET PO SCH (21:21)
[2020-09-02 01:26] LABS: Basophils % 0.7 %; Eosinophils # 0.1 K/mcL (0.0-0.6); Hemoglobin 7.2 g/dL (12.9-16.9); Immature Granulocytes % 1.4 % (0-4); Lymphocytes # 0.5 K/mcL (0.6-4.6); Lymphocytes % 10.5 %; Mean Corpuscular HGB Conc 31.3 g/dL (31.6-35.5); Mean Corpuscular Hemoglobin 29.5 pg (28.0-33.3); Mean Corpuscular Volume 94.3 fL (83.0-100.0); Mean Platelet Volume 10.6 fL (9.4-12.4); Monocytes # 0.4 K/mcL (0.0-1.3); Monocytes % 9.1 %; Neutrophils # 3.2 K/mcL (1.6-8.9); Platelet Count 239 K/mcL (140-400); Red Blood Count 2.44 M/mcL (4.19-5.50); Red Cell Distribution Width 16.6 % (11.5-14.5); Segmented Neutrophils % 75.3 %; White Blood Count 4.3 K/mcL (4.3-11.1)
[2020-09-02 01:42] LABS: Potassium 5.2 mEq/L (3.5-5.1)
[2020-09-02] MEDS: Aspirin Enteric Coated 81 MG Tablet PO SCH (08:41)
[2020-09-02] MEDS: Cholecalciferol (D-3) 1,000 UNIT (25MCG) TABLET PO SCH (08:41)
[2020-09-02] MEDS: gemfibroziL 600 MG TABLET PO SCH ×2 (08:41→21:29)
[2020-09-02] MEDS: SODIUM ZIRCONIUM CYCLOSILICATE 5 GM POWD.PACK PO SCH (08:42)
[2020-09-02] MEDS: Nystatin POWDER 30 GM BOTTLE TP SCH ×3 (08:42→21:29)
[2020-09-02] MEDS: Lactulose Oral Soln 20 GM/30 ML UDC PO SCH ×3 (08:42→21:42)
[2020-09-02] MEDS: traZODone 50 MG TABLET PO SCH (21:29)
[2020-09-03 06:23] LABS: Basophils # 0.1 K/mcL (0.0-0.2); Basophils % 1.2 %; Eosinophils # 0.1 K/mcL (0.0-0.6); Eosinophils % 2.7 %; Hemoglobin 7.2 g/dL (12.9-16.9); Immature Granulocytes % 1.2 % (0-4); Lymphocytes # 0.4 K/mcL (0.6-4.6); Lymphocytes % 10.4 %; Mean Corpuscular HGB Conc 31.3 g/dL (31.6-35.5); Mean Corpuscular Volume 95.8 fL (83.0-100.0); Mean Platelet Volume 10.5 fL (9.4-12.4); Monocytes # 0.3 K/mcL (0.0-1.3); Monocytes % 8.2 %; Neutrophils # 3.1 K/mcL (1.6-8.9); Platelet Count 213 K/mcL (140-400); Red Cell Distribution Width 16.9 % (11.5-14.5); Segmented Neutrophils % 76.3 %
[2020-09-03 06:48] LABS: Albumin 2.4 g/dL (3.5-5.7); Albumin/Globulin Ratio 0.7 (1.1-2.2); Bilirubin,Indirect 1.3 mg/dL (0.0-1.0); Bilirubin,Total 3.3 mg/dL (0.3-1.0); Globulin 3.5 g/dL (2.4-3.5); Total Protein 5.9 g/dL (6.4-8.9)
[2020-09-03 06:49] LABS: Calcium 8.4 mg/dL (8.6-10.3); Potassium 5.4 mEq/L (3.5-5.1)
[2020-09-03] MEDS: Aspirin Enteric Coated 81 MG Tablet PO SCH (08:09)
[2020-09-03] MEDS: gemfibroziL 600 MG TABLET PO SCH ×2 (08:09→20:29)
[2020-09-03] MEDS: SODIUM ZIRCONIUM CYCLOSILICATE 5 GM POWD.PACK PO SCH (08:09)
[2020-09-03] MEDS: Nystatin POWDER 30 GM BOTTLE TP SCH ×3 (08:10→22:41)
[2020-09-03] MEDS: Lactulose Oral Soln 20 GM/30 ML UDC PO SCH ×2 (08:10→20:29)
[2020-09-03] MEDS: Cholecalciferol (D-3) 1,000 UNIT (25MCG) TABLET PO SCH (08:10)
[2020-09-03 14:32] LABS: Hematocrit 23.8 % (37.5-50.1)
[2020-09-03] MEDS: traZODone 50 MG TABLET PO SCH (20:29)
[2020-09-04 05:25] LABS: Hemoglobin 7.2 g/dL (12.9-16.9); Mean Platelet Volume 11.1 fL (9.4-12.4); Red Cell Distribution Width 16.7 % (11.5-14.5)
[2020-09-04 05:27] LABS: Basophils % 0.6 %; Eosinophils # 0.1 K/mcL (0.0-0.6); Eosinophils % 2.3 %; Hematocrit 22.8 % (37.5-50.1); Immature Granulocytes % 1.9 % (0-4); Immature Platelets 2.8 % (1.1-6.1); Lymphocytes # 0.5 K/mcL (0.6-4.6); Lymphocytes % 11.3 %; Mean Corpuscular HGB Conc 31.6 g/dL (31.6-35.5); Mean Corpuscular Hemoglobin 29.5 pg (28.0-33.3); Mean Corpuscular Volume 93.4 fL (83.0-100.0); Monocytes # 0.3 K/mcL (0.0-1.3); Monocytes % 6.4 %; Neutrophils # 3.6 K/mcL (1.6-8.9); Platelet Count 202 K/mcL (140-400); Red Blood Count 2.44 M/mcL (4.19-5.50); Segmented Neutrophils % 77.5 %; White Blood Count 4.7 K/mcL (4.3-11.1)
[2020-09-04 05:32] LABS: Calcium 8.4 mg/dL (8.6-10.3); Potassium 5.5 mEq/L (3.5-5.1)
[2020-09-04] MEDS: SODIUM ZIRCONIUM CYCLOSILICATE 5 GM POWD.PACK PO SCH (08:19)
[2020-09-04] MEDS: Lactulose Oral Soln 20 GM/30 ML UDC PO SCH ×2 (08:22→20:26)
[2020-09-04] MEDS: Cholecalciferol (D-3) 1,000 UNIT (25MCG) TABLET PO SCH (08:23)
[2020-09-04] MEDS: Aspirin Enteric Coated 81 MG Tablet PO SCH (08:23)
[2020-09-04] MEDS: gemfibroziL 600 MG TABLET PO SCH (08:23)
[2020-09-04] MEDS: Nystatin POWDER 30 GM BOTTLE TP SCH ×3 (08:25→20:26)
[2020-09-04] MEDS: traZODone 50 MG TABLET PO SCH (20:26)
[2020-09-05 05:51] LABS: Hematocrit 22.4 % (37.5-50.1); Hemoglobin 6.8 g/dL (12.9-16.9)
[2020-09-05 06:07] LABS: Calcium 8.4 mg/dL (8.6-10.3); Potassium 4.5 mEq/L (3.5-5.1)
[2020-09-05] MEDS: SODIUM ZIRCONIUM CYCLOSILICATE 5 GM POWD.PACK PO SCH (07:27)
[2020-09-05] MEDS: Aspirin Enteric Coated 81 MG Tablet PO SCH (07:27)
[2020-09-05] MEDS: Cholecalciferol (D-3) 1,000 UNIT (25MCG) TABLET PO SCH (07:27)
[2020-09-05] MEDS: Lactulose Oral Soln 20 GM/30 ML UDC PO SCH ×2 (07:27→20:14)
[2020-09-05] MEDS: Nystatin POWDER 30 GM BOTTLE TP SCH ×3 (07:46→20:16)
[2020-09-05] MEDS ORDERED: 0.9 % Sodium Chloride 250 ML ONE (12:16)
[2020-09-05] MEDS: traZODone 50 MG TABLET PO SCH (20:14)
[2020-09-05] MEDS ORDERED: Chloraseptic Spray 177 ML BOTTLE MM PRN (23:39)
[2020-09-06 01:52] LABS: Hematocrit 25.7 % (37.5-50.1); Hemoglobin 7.9 g/dL (12.9-16.9)
[2020-09-06 02:11] LABS: Calcium 8.3 mg/dL (8.6-10.3); Potassium 4.2 mEq/L (3.5-5.1)
[2020-09-06] MEDS: Lactulose Oral Soln 20 GM/30 ML UDC PO SCH ×2 (08:25→21:20)
[2020-09-06] MEDS: SODIUM ZIRCONIUM CYCLOSILICATE 5 GM POWD.PACK PO SCH (08:25)
[2020-09-06] MEDS: Cholecalciferol (D-3) 1,000 UNIT (25MCG) TABLET PO SCH (08:29)
[2020-09-06] MEDS: Aspirin Enteric Coated 81 MG Tablet PO SCH (08:29)
[2020-09-06] MEDS: Nystatin POWDER 30 GM BOTTLE TP SCH ×3 (08:29→21:20)
[2020-09-06] MEDS: traZODone 50 MG TABLET PO SCH (21:20)
[2020-09-07 02:49] LABS: Hematocrit 27.7 % (37.5-50.1); Hemoglobin 8.3 g/dL (12.9-16.9)
[2020-09-07 03:03] LABS: Calcium 8.6 mg/dL (8.6-10.3)
[2020-09-07] MEDS: Aspirin Enteric Coated 81 MG Tablet PO SCH (08:01)
[2020-09-07] MEDS: Cholecalciferol (D-3) 1,000 UNIT (25MCG) TABLET PO SCH (08:01)
[2020-09-07] MEDS: Nystatin POWDER 30 GM BOTTLE TP SCH ×2 (08:02→15:39)
[2020-09-07] MEDS: Lactulose Oral Soln 20 GM/30 ML UDC PO SCH (08:02)
[2020-09-07] MEDS: SODIUM ZIRCONIUM CYCLOSILICATE 5 GM POWD.PACK PO SCH (08:02)
[2020-09-07 11:54] LABS: Adenovirus Not Detected (Not Detect); Bordetella Pertussis Not Detected (Not Detect); Chlamydophila pneumoniae Not Detected (Not Detect); Coronavirus 229E Not Detected (Not Detect); Coronavirus HKU1 Not Detected (Not Detect); Coronavirus NL63 Not Detected (Not Detect); Coronavirus OC43 Not Detected (Not Detect); Human Metapneumovirus Not Detected (Not Detect); Human Rhinovirus/Enterovirus Not Detected (Not Detect); Influenza A Subtype 2009 H1 Not Detected (Not Detect); Influenza B Not Detected (Not Detect); Mycoplasma pneumoniae Not Detected (Not Detect); Parainfluenza Virus 1 Not Detected (Not Detect); Parainfluenza Virus 2 Not Detected (Not Detect); Parainfluenza Virus 3 Not Detected (Not Detect); Parainfluenza Virus 4 Not Detected (Not Detect); Respiratory Syncytial Virus Not Detected (Not Detect); SARS-CoV-2 Not Detected (Not Detect)
[2020-09-07 12:14] VITALS: BP 115/58
[2020-09-07] MEDS: Ondansetron ODT 4 MG TAB.RAPDIS SL PRN (15:42)
== END 2020-09-07 16:52 ==
LOC: EMEROOARM 18:47 → 2NNU 18:47 → SUATTDRO 23:15 → 2NNU 08-27 02:13 → 2ANU 08-30 17:30
PROVIDERS: ADMIT Family Medicine; ATTEND Family Medicine